=== PATIENT | female | born 1940 | race Caucasian/White ===

== ENCOUNTER 2022-02-01 11:27 | Emergency (ER) | payer MEDICARE, OTHER, SELFPAY ==
--- NOTE | ~2022-02-01 | CT_ITS ---
EXAMINATION: CT brain wo con INDICATION: Altered mental status COMPARISON: None TECHNIQUE: Standard unenhanced head CT. The dose-length product (DLP) was 681.00 mGy-cm. The mA was a djusted according to patient size. Iterative reconstruction technique was employed. FINDINGS: There is no acute intraparenchymal hemorrhage. No evidence of mass lesion. No evidence of a cute infarction. There is mild periventricular and subcortical hypodensity probably related to small vessel ischemic disease. There are some focal areas of subtle low-attenuation in the white matter of the right parietal lobe which may also reflect small vessel ischemic change. There is mild prominence of the sulci and ventricles related to cerebral atrophy. Intracranial calcified cerebral atheroscler osis is noted. There are no extra-axial collections. There is no mass effect or midline shift. Change s in the globes are likely from ocular lens surgery. The visualized sinuses and mastoid air cells are well aerated. IMPRESSION: 1. No acute intracranial abnormality. 2. Age related findings. Reviewed, dictated and finalized at location A.
--- NOTE | ~2022-02-01 | XR_ITS ---
EXAMINATION: XR chest 1V portable INDICATION: Altered mental status TECHNIQUE: Portable AP chest at 1218 hours COMPARISON: None available FINDINGS: The lungs are hyperinflated but free of acute opacities. No pleural effusion or pneumothora x. The cardiomediastinal silhouette is normal. Surgical clips are noted in the neck. IMPRESSION: 1. No acute cardiopulmonary abnormality. Reviewed, dictated and finalized at location A.
--- NOTE | ~2022-02-01 | CT_ITS ---
EXAMINATION: CT abdomen pelvis w con DATE: 02/01/2022 14:12 INDICATION: abd pain TECHNIQUE: Computed tomography (CT) of the abdomen and pelvis was performed without intravenous contr ast. Automated exposure control and iterative reconstruction technique were employed. The dose-length product was 363.95 mGy-cm. COMPARISON: None. FINDINGS: Lower thorax: Hiatal hernia coronary artery, aortic, and mitral calcifications Liver: Normal. Biliary/Gallbladder: Unremarkable. No bile duct dilation. Pancreas: No mass or duct dilation. Spleen: Normal. Adrenals:No mass. Kidneys: No mass, stone, or hydronephrosis. GI tract: No small or large bowel dilation. Normal appendix. The rectum is dilated to 8 cm, by formed stool. No wall thickening or surrounding inflammatory change. Mesentery/Peritoneum: No ascites, mass, or free air. Retroperitoneum: No mass. Atherosclerotic abdominal aortic and/or arterial calcifications. Small fusi form heavily calcified abdominal aortic aneurysm. Pelvis: Pelvic organs are partially obscured by metal artifact, grossly within normal limits. Soft Tissues: Soft tissues and body wall unremarkable. Bones: No acute osseous finding. Right hip arthroplasty. IMPRESSION: Fecal impaction. No other acute abdominopelvic process. Reviewed, dictated and finalized at location K.
[2022-02-01 11:31] VITALS: BP 129/50; PULSE 64; RESP 18; TEMP 36.7; O2SAT 100
--- NOTE | 2022-02-01 12:10 | ECG_ITS ---
Measurements Intervals [place] Rate: 69 P: 157 WV: 216 QRS: 62 QRSD: 86 T: -68 QT: 405 QTc: 435 Interpretive Statements SINUS RHYTHM WITH FIRST DEGREE AV BLOCK LEFT VENTRICULAR HYPERTROPHY AND ST-T CHANGE [VOLTAGE CRITERIA PLUS ST/T ABNORMALITY] NO PREVIOUS ECG AVAILABLE FOR COMPARISON Electronically Signed On 02-02-2022 7:07:30 CDT by Joaquín Mancilla M.D.
[2022-02-01] MEDS: SODIUM CHLORIDE 0.9% IV 1,000 ML 999 ML IV CONT (12:54)
[2022-02-01 13:02] LABS: Basophils Percent Auto 0.3 % (0.2-1.2); Eosinophils Percent Auto 0.2 % (0-4.4); Hematocrit 46.6 % (37.0-47.0); Hemoglobin 14.6 g/dL (12.0-15.0); Immature Granulocyte Absolute 0.02 K/mm3 (0.00-0.031); Immature Granulocyte Percent A 0.3 % (0-0.5); Lymphocytes Absolute Auto 0.42 K/mm3 (0.9-3.2); Lymphocytes Percent Auto 6.4 % (18.3-44.2); Mean Corpuscular HGB Conc 31.3 g/dl (32-36); Mean Corpuscular Hemoglobin 28.6 pg (26-34); Mean Corpuscular Volume 91.4 fl (80-100); Mean Platelet Volume 9.8 fl (7.4-10.4); Monocytes Absolute Auto 0.5 K/mm3 (0.1-0.6); Monocytes Percent Auto 8.2 % (2.6-8.5); Neutrophils Absolute Auto 5.6 K/mm3 (1.3-6.7); Neutrophils Percent Auto 84.6 % (45.5-73.1); Platelet Count Result 255 k/mm3 (150-375); Red Cell Distribution Width 14.1 % (11.5-14.5); White Blood Count 6.6 K/mm3 (4.5-10.0)
[2022-02-01 13:13] LABS: Alanine Aminotransferase 10 U/L (6-35); Albumin Level 3.6 g/dL (3.5-5.1); Alkaline Phosphatase 105 U/L (38-126); Anion Gap 4 mmol/L (8-16); Aspartate Amino Transferase 24 U/L (14-36); Bilirubin,Total 0.4 mg/dL (0.2-1.3); Blood Urea Nitrogen 23 mg/dL (7-17); Calcium 8.8 mg/dL (8.4-10.2); Carbon Dioxide 32 mmol/L (22-30); Chloride 103 mmol/L (98-107); Estimated CRCL calculation 36 ml/min; Estimated Glomerular Filt Rate 60; Glucose 103 mg/dL (65-110); Lipase 51 U/L (23-300); Potassium 3.9 mmol/L (3.4-5.0); Sodium 139 mmol/L (137-145)
[2022-02-01 13:14] LABS: Lactic Acid Reflex 1.1 mmol/L (0.7-2.0)
[2022-02-01 13:16] LABS: Partial Thromboplastin Time 27.2 SECONDS (22.3-36.8)
[2022-02-01 13:23] LABS: Appearance Urine Clear (Clear); Bilirubin Urine Negative (Negative); Blood Urine Negative (Negative); Color Urine Yellow (Yellow); Glucose Urine UA Negative (Negative); Ketones Urine Trace mg/dL (Negative); Leukocyte Esterase Ur Negative LEU/UL (Negative); Nitrate Urine Negative (Negative); Protein Urine Negative (Negative); pH Urine 5.5 (5.0-9.0)
--- NOTE | 2022-02-01 13:26 | ED.GENADULT ---
HPI - General Adult General Chief complaint: Nausea/Vomiting/Diarrhea Stated complaint: N/V Time Seen by Provider: 02/01/22 12:02 Source: RN notes reviewed History of Present Illness HPI narrative: Patient presents emergency department from [facility] via EMS for nausea vomiting. Per the staff the patient had an episode of nausea vomiting x1 at the nursing was sent for further evaluation. Per the staff the patient's questionably had some altered mental status for the past 1 week however the patient is ANO x1 at baseline and currently is ANO x1 at this time. The patient currently is resting in bed she has no complaints at this time she denies any chest pain, shortness of breath abdominal pain or any other symptom Related Data Allergies Allergy/AdvReac Type Severity Reaction Status Date / Time Penicillins Allergy Unknown Verified 02/01/22 11:42 Sulfa (Sulfonamide Allergy Unknown Verified 02/01/22 11:42 Antibiotics) Review of Systems Review of Systems: Gen.: Denies fevers or chills ENT: Denies congestion Respiratory: Denies shortness of breath CV: Denies chest pain GI: Denies abdominal pain or diarrhea reports nausea vomiting Musculoskeletal: Denies back pain or muscle pain Neuro: Denies headache Skin: Denies rash Except as documented, all other systems reviewed and negative [facility] Past Medical History Medical History (Updated 02/01/22 @ 16:48 by Andrew Peterson DO) Dementia Social History Social History (Updated 02/01/22 @ 16:45 by Andrew Peterson DO) Smoking status: Never smoker Exam Narrative: APPEARANCE: No acute distress, nontoxic, resting in bed EYES: PERRL HEENT: Normocephalic, atraumatic, OMM RESPIRATORY: No respiratory distress Clear to auscultation bilaterally with no rhonchi wheezing or rales. CARDIOVASCULAR: Regular rate and rhythm without murmurs rubs or gallops. ABDOMINAL: Soft, nontender, nondistended, no rebound or guarding MUSCULOSKELETAl: Moves all extremities. No clubbing, cyanosis or edema. NEURO: Awake and alert x 1. Following commands, speech normal, no focal deficits, muscle strength 5 out of 5 bilateral upper and lower extremities SKIN:: Warm, dry. No rashes lesions or abrasions PSYCHIATRIC: Normal affect/mood, Course Course Emergency Course: Patient with fecal impaction noted on CT scan a rectal exam was performed with small amount of palpated stool enema was given with large bowel movement Discussed with Dr. Cailin Thompson presentation work-up agrees with plan for discharge to follow-up as an outpatient states she is already on stool softeners are at the [facility] Discussed with patient results of workup and diagnosis. Discussed need for follow-up with primary care, proper use of medication, and reasons to return to the emergency department. Patient understands and agrees to current treatment plan Vital Signs Vital signs: Vital Signs Temperature 98.1 F 02/01/22 11:31 Pulse Rate 64 02/01/22 11:31 Respiratory Rate 18 02/01/22 11:31 Blood Pressure 129/50 L 02/01/22 11:31 Pulse Oximetry 100 02/01/22 11:31 Oxygen Delivery Room Air 02/01/22 11:31 Temperature 98.1 F 02/01/22 11:31 Pulse Rate 70 02/01/22 14:16 Respiratory Rate 20 02/01/22 14:16 Blood Pressure 167/88 H 02/01/22 14:16 Pulse Oximetry 98 02/01/22 14:16 Oxygen Delivery Room Air 02/01/22 11:31 Medical Decision Making Vital Signs Vital Signs: Vital Signs Temperature 98.1 F 02/01/22 11:31 Pulse Rate 64 02/01/22 11:31 Respiratory Rate 18 02/01/22 11:31 Blood Pressure 129/50 L 02/01/22 11:31 Pulse Oximetry 100 02/01/22 11:31 Oxygen Delivery Room Air 02/01/22 11:31 Temperature 98.1 F 02/01/22 11:31 Pulse Rate 70 02/01/22 14:16 Respiratory Rate 20 02/01/22 14:16 Blood Pressure 167/88 H 02/01/22 14:16 Pulse Oximetry 98 02/01/22 14:16 Oxygen Delivery Room Air 02/01/22 11:31 Lab Data Result diagrams: 02/01/22 12:51
[2022-02-01 13:29] LABS: Mucus Urine Rare /lpf; RBC Urine 0-2 /hpf (0-2); Squamous Epithelial Cell Urine Rare /hpf (Few); WBC Urine 0-3 /hpf
[2022-02-01 13:42] LABS: SARS-CoV-2 RNA PCR Negative
[2022-02-01 13:55] LABS: Add Urine Microscopic? YES
[2022-02-01 14:16] VITALS: BP 167/88; PULSE 70; RESP 20; O2SAT 98
--- NOTE | 2022-02-01 15:53 | PC.NURSE ---
Talked to the nurse from the retirement ([facility]), update on pt condition given.
[2022-02-01 19:18] VITALS: BP 126/85; PULSE 87; RESP 16; O2SAT 99
[2022-02-01 23:28] VITALS: BP 172/67; PULSE 72; RESP 20; TEMP 36.7; O2SAT 98
== END 2022-02-01 23:30 ==
PROVIDERS: Emergency Provider Emergency Medicine
DX: R11.2 Nausea with vomiting, unspecified (principal); K56.41 Fecal impaction; Z20.822 Contact with and (suspected) exposure to COVID-19; F03.90 Unspecified dementia, unspecified severity, without behavioral disturbance, psychotic disturbance, mood disturbance, and anxiety; I44.0 Atrioventricular block, first degree; I51.7 Cardiomegaly
CPT/HCPCS: 36415; 70450; 71045; 74177; 80053; 81001; 83605; 83690; 85025; 85610; 85730; 93005; 96360; 99284; C9803; J7030; Q9967; U0003; U0005

== ENCOUNTER 2022-03-10 13:45 | Inpatient (IN) | payer MEDICARE, MEDICAID, SELFPAY ==
[2022-03-10] VITALS (11 sets, daily range): BP systolic 121–177; BP diastolic 46–66; PULSE 69–94; RESP 15–20; TEMP 36.4–36.9; O2SAT 90–100
--- NOTE | ~2022-03-10 | CT_ITS ---
EXAMINATION: CT abdomen pelvis w con DATE: 03/10/2022 15:57 INDICATION: Epigastric abdominal pain, nausea, vomiting and diarrhea TECHNIQUE: Computed tomography (CT) of the abdomen and pelvis was performed with 100 CC Omnipaque 350 intravenous contrast. Automated exposure control and iterative reconstruction technique were employe d. Exam dose: 378.53 mGy-cm total exam DLP. COMPARISON: 02/01/2022 CT abdomen pelvis FINDINGS: The lung bases are clear of consolidation. Cardiomegaly. No pericardial or pleural effusion . Status post cholecystectomy. No hepatic space-occupying mass lesion. Normal splenic size. No pancreat ic mass lesion, calcification or ductal dilatation. No bile duct dilatation. Normal morphology of the adrenal glands. No renal mass lesion or urinary tract calculus or hydroureteronephrosis. The urinary bladder is relat ively evacuated there is severe abdominal aortic calcification and prominent calcification at the danyelle gin of the celiac artery and at the origin and remainder of the superior mesenteric artery, prominent calcifications at the origins of the renal arteries. The iliac and femoral arteries are prominently calcified. There is ectasia but no aneurysm of the abdominal aorta. No intraperitoneal or retroperito neptali or pelvic mass lesion or adenopathy. Small sliding hiatal hernia. Probably distended fluid-filled small bowel with air-fluid levels. The cecum is likewise distended, w ith a prominent fluid level. There appears to be a twist of the cecal mesentery resulting in partial cecal obstruction, with evacuation of the colon distal to this point. There is mild to moderate amount of free fluid in the dependent pelvis. There are numerous diverticula of the sigmoid colon; no CT evidence of diverticulitis. No intraperitoneal free air is evident. Status post right hip arthroplasty. Moderately severe degenerative disc disease at L5-S1. IMPRESSION: Obstruction of the ascending colon, likely due to twisting of retained cecal mesentery Mild to moderate free fluid in the dependent pelvis. Diverticulosis of the sigmoid colon; no CT evidence of diverticulitis Small sliding hiatal hernia Dr. Canales telephoned the report on 03/10/2022 at 1618 hours to emergency room physician . I danika mmend emergency surgical consultation. Reviewed, dictated and finalized at [facility]. Reviewed, dictated and finalized at [facility]. IMPRESSION: Obstruction of the ascending colon, likely due to twisting of [place] ined cecal mesentery Mild to moderate free fluid in the dependent pelvis. Diverticulosis of the sigmoid colon; no CT evidence of diverticulitis Small sliding hiatal hernia Dr. Canales telephoned the report on 03/10/2022 at 1618 hours to emergency room phys icielva Marcos. I recommend emergency surgical consultation.
--- NOTE | 2022-03-10 14:37 | ED.NAVMDI ---
HPI - Nausea/Vomiting/Diarrhea General Chief complaint: Nausea/Vomiting/Diarrhea Stated complaint: VOMIT AND DIARRHEA Time Seen by Provider: 03/10/22 14:33 History of Present Illness HPI Narrative: n/v and epigastric pain since yesterday zofran by ems helped no diarrhea or urine chagnes no bad food or sick contacts but lives in [place] setting Related Data Home Medications Medication Instructions Recorded Confirmed aripiprazole 5 mg tablet mg 03/10/22 atorvastatin 40 mg tablet mg 03/10/22 carvedilol 3.125 mg tablet mg 03/10/22 clopidogrel 75 mg tablet mg 03/10/22 colestipol 1 gram tablet g PO 03/10/22 divalproex 250 mg tablet,delayed mg PO 03/10/22 release donepezil 10 mg tablet mg 03/10/22 nystatin 100,000 unit/gram topical topical 03/10/22 ointment potassium chloride 20 mEq meq PO 03/10/22 tablet,extended release(part/cryst) prednisone 10 mg tablet mg 03/10/22 sertraline 50 mg tablet mg 03/10/22 03/10/22 Allergies Allergy/AdvReac Type Severity Reaction Status Date / Time Penicillins Allergy Unknown Verified 03/10/22 15:09 Sulfa (Sulfonamide Allergy Unknown Verified 03/10/22 15:09 Antibiotics) Review of Systems Constitutional: Comments: CONSTITUTIONAL: Denies fever, chills, or sweats. EYES: Denies visual changes, redness, or discharge. ENT: Denies rhinorrhea, congestion, sore throat, or otalgia. CARDIOVASCULAR: Denies chest pain, palpitations, or edema. RESPIRATORY: Denies cough or dyspnea. GASTROINTESTINAL: has abdominal pain, nausea, vomiting, no diarrhea. GENITOURINARY: Denies dysuria or hematuria. SKIN: Denies rash or itching. MUSCULOSKELETAL: Denies back pain, joint pain, or myalgia. NEUROLOGIC: Denies headache, numbness, or weakness. PSYCHIATRIC: Denies anxiety or depression. [facility] Past Medical History Medical History (Updated 03/10/22 @ 17:49 by Jhon Clark MD) CHF (congestive heart failure) Coronary artery disease Dementia Surgical History Surgical History History of hip replacement History of hysterectomy Social History Social History Smoking status: Former smoker Alcohol intake: never Substance use: never Spiritual care concerns: No Exam Const: Other: APPEARANCE: Well appearing, no pain in distress, well-nourished. Head normocephalic atraumtaic. EYES: PERRLA/EOMI, conjunctivae very clear. NOSE: Normal no drainage EARS:TMS clear Magda French, with good light reflex. THROAT: Pharynx clear, no exudate. NECK: Supple. No adenopathy, no masses. RESPIRATORY: Airway patent, repsirations nonlabored. Clear to auscultation bilaterally, no rales, rhonchi, wheezing. CARDIOVASCULAR: Regular rate and rhythm without murmurs rubs or gallops. ABDOMINAL: Soft, tend epi, decreased bs, nondistended, no hepatosplenomegally MUSCULOSKELETAl: Moves all extremities. Strenght/ROM intact, No edema, No calf tenderness. NEURO: Alert. Cranial nerves II through XII intact. Good gait. Good coordination SKIN:: Warm, dry. Normal Color PSYCHIATRIC: Normal affect/mood, normal interaction with parents. Course Reevaluation(s) Reevaluation #1: surgeon Dr Cardona paged at [phone] Vital Signs Vital signs: Vital Signs Temperature 36.8 C 03/10/22 13:46 Pulse Rate 85 03/10/22 13:46 Respiratory Rate 18 03/10/22 13:46 Blood Pressure 155/66 H 03/10/22 13:46 Pulse Oximetry 98 03/10/22 13:46 Oxygen Delivery Room Air 03/10/22 13:46 Temperature 36.4 C 03/10/22 20:22 Pulse Rate 69 03/10/22 20:22 Respiratory Rate 20 03/10/22 20:22 Blood Pressure 121/54 L 03/10/22 20:22 Pulse Oximetry 95 03/10/22 20:22 Oxygen Delivery Room Air 03/10/22 19:35 Oxygen Flow Rate 6 03/10/22 19:05 MDM - Nausea/Vomiting/Diarrhea Lab Data Result diagrams: 03/10/22 15:16 03/10/22 15:16 Labs: Lab Results 03/10/22 03/10/22 03/10/22 Ran
[2022-03-10] MEDS: FAMOTIDINE 20 MG/2 ML VIAL IV PUSH (14:54)
[2022-03-10] MEDS: SODIUM CHLORIDE 0.9% IV 1,000 ML 999 ML IV CONT (14:54)
[2022-03-10 15:30] LABS: Basophils Percent Auto 0.2 % (0.2-1.2); Hematocrit 47.7 % (37.0-47.0); Hemoglobin 14.7 g/dL (12.0-15.0); Immature Granulocyte Absolute 0.06 K/mm3 (0.00-0.031); Immature Granulocyte Percent A 0.5 % (0-0.5); Lymphocytes Absolute Auto 0.43 K/mm3 (0.9-3.2); Lymphocytes Percent Auto 3.8 % (18.3-44.2); Mean Corpuscular HGB Conc 30.8 g/dl (32-36); Mean Corpuscular Hemoglobin 28.3 pg (26-34); Mean Corpuscular Volume 91.9 fl (80-100); Mean Platelet Volume 9.8 fl (7.4-10.4); Monocytes Absolute Auto 0.6 K/mm3 (0.1-0.6); Monocytes Percent Auto 4.9 % (2.6-8.5); Neutrophils Absolute Auto 10.2 K/mm3 (1.3-6.7); Neutrophils Percent Auto 90.6 % (45.5-73.1); Platelet Count Result 314 k/mm3 (150-375); Red Blood Count 5.19 M/mm3 (4.2-5.4); Red Cell Distribution Width 13.7 % (11.5-14.5); White Blood Count 11.3 K/mm3 (4.5-10.0)
[2022-03-10 15:37] LABS: Alanine Aminotransferase 12 U/L (6-35); Albumin Level 3.5 g/dL (3.5-5.1); Alkaline Phosphatase 82 U/L (38-126); Anion Gap 9 mmol/L (8-16); Aspartate Amino Transferase 24 U/L (14-36); Bilirubin,Total 0.6 mg/dL (0.2-1.3); Blood Urea Nitrogen 31 mg/dL (7-17); Calcium 8.9 mg/dL (8.4-10.2); Carbon Dioxide 30 mmol/L (22-30); Chloride 100 mmol/L (98-107); Estimated CRCL calculation 30 ml/min; Estimated Glomerular Filt Rate 53; Glucose 136 mg/dL (65-110); Lipase 161 U/L (23-300); Potassium 4.6 mmol/L (3.4-5.0); Sodium 139 mmol/L (137-145)
[2022-03-10 16:21] LABS: Appearance Urine Clear (Clear); Bilirubin Urine Negative (Negative); Color Urine Yellow (Yellow); Glucose Urine UA Negative (Negative); Ketones Urine Trace mg/dL (Negative); Leukocyte Esterase Ur Negative LEU/UL (Negative); Nitrate Urine Positive (Negative); Protein Urine 1+ mg/dL (Negative); Urobilinogen Urine 0.2 mg/dL (<2.0); pH Urine 5.5 (5.0-9.0)
[2022-03-10 16:23] LABS: Add Urine Microscopic? YES; Blood Urine Trace-Intact (Negative)
[2022-03-10 16:29] LABS: Bacteria Urine 3+ /hpf; Mucus Urine Moderate /lpf; Squamous Epithelial Cell Urine Rare /hpf (Few)
--- NOTE | 2022-03-10 17:00 | PM.IMHP ---
H&P: HPI History of Present Illness Date/Time: 03/10/22 17:00 Chief Complaint: abdominal pain Narrative: this is an 82-year-old demented woman who was brought in to the emergency department by EMS from her nursing home facility for evaluation for abdominal pain with nausea and vomiting. She has been having vomiting over the past 2 days. She does have problems with constipation frequently. Patient has fairly significant dementia and is only oriented to person. History is unable to be obtained from patient. Nursing facility record was reviewed and I also discussed with patient's daughter who is her emergency contact. Review of Systems Review of Systems: ROS unobtainable: Yes unobtainable due to mental status Gastrointestinal: Gastrointestinal: Reports as per [facility] Past Medical History Medical History Coronary artery disease Dementia Surgical History Surgical History History of hip replacement History of hysterectomy Social History Social History Smoking status: Never smoker Comments unable to obtain family and social history due to patient's mental status Meds Home Medications and Allergies Home Medications Medication Instructions Recorded Confirmed Type aripiprazole 5 mg tablet mg 03/10/22 History atorvastatin 40 mg tablet mg 03/10/22 History carvedilol 3.125 mg tablet mg 03/10/22 History clopidogrel 75 mg tablet mg 03/10/22 History colestipol 1 gram tablet g PO 03/10/22 History divalproex 250 mg tablet,delayed mg PO 03/10/22 History release donepezil 10 mg tablet mg 03/10/22 History nystatin 100,000 unit/gram topical topical 03/10/22 History ointment potassium chloride 20 mEq meq PO 03/10/22 History tablet,extended release(part/cryst) prednisone 10 mg tablet mg 03/10/22 History sertraline 50 mg tablet mg 03/10/22 03/10/22 History Allergies Allergy/AdvReac Type Severity Reaction Status Date / Time Penicillins Allergy Unknown Verified 03/10/22 15:09 Sulfa (Sulfonamide Allergy Unknown Verified 03/10/22 15:09 Antibiotics) Vital Signs Vital Signs - 24 hr 03/10/22 13:46 Temperature 36.8 C Pulse Rate 85 Respiratory Rate 18 Blood Pressure 155/66 H Pulse Oximetry 98 Oxygen Delivery Room Air Exam Const: General: cooperative and no acute distress Nutritional Appearance: average body habitus Orientation/consciousness: oriented to person and confusion HENMT: Head: normal to inspection Ears: hearing grossly normal bilaterally Mouth: Yes Normal oral and palatal mucosa present Eyes: General: appearance normal, both eyes and all related structures Sclera: sclerae normal EOM: EOMs intact bilaterally Neck: Neck: normal visual inspection and full ROM Resp: Effort & Inspection: normal respiratory effort and able to speak in complete sentences Cardio: Jugular venous distension: no JVD Rate: regular rate Rhythm: regular rhythm Heart sounds: S1 normal heart sound present and S2 normal heart sound present Back/Spine/Pelvis: Cervical Spine: normal cervical lordosis and cervical ROM normal Skin: General skin exam: normal color and no rashes or lesions noted Neuro: General: oriented to person, moves all extremities, no focal motor deficits and CN's II-XI intact bilaterally Speech: normal speech Extrem: General: normal to inspection, full ROM and no clubbing, cyanosis or edema Psych: Appearance: grossly normal Mental Status: mental status grossly normal Speech and movement: Normal speech and movement present Affect: normal affect Attitude: cooperative Thought process: Normal thought process present H&P: Results Labs Labs: Short CBC 03/10/22 Range/Units 15:16 WBC 11.3 H (4.5-10.0) K/mm3 Hgb 14.7 (12.0-15.0) g/dL Hct 47.7 H (37.0-47.0) % Plt Count 314 (150-
--- NOTE | 2022-03-10 17:13 | WPDHPUPDATE1 ---
History and Physical Update Update Date/Time: 03/10/22 17:13 History and Physical has been reviewed, including an updated exam of the patient. There are NO changes in the patient's condition. Risks, benefits, and alternatives have been discussed and questions answered. Patient agrees to proceed with procedure.
--- NOTE | 2022-03-10 17:47 | WPDANESEPPF ---
Anes - Initial Pre Proc Eval Procedure: Operation Date: 03/10/22 17:30 Proposed Procedures p Exploratory Laparotomy, Right Hemicolectomy - Billy Cardona DO Date/Time: 03/10/22 17:47 Surgeon: Billy Cardona DO Pre Op Diagnosis: VOMIT AND DIARRHEA Patient Data Age: 82 Gender: F Height: 1.6 m Weight: 49 kg Last Vital Signs Temp 36.8 C 03/10/22 13:46 Pulse 71 03/10/22 17:32 Resp 18 03/10/22 17:32 BP 177/57 H 03/10/22 17:32 Pulse Ox 95 03/10/22 17:32 O2 Del Method Room Air 03/10/22 13:46 Allergies Allergy/AdvReac Type Severity Reaction Status Date / Time Penicillins Allergy Unknown Verified 03/10/22 15:09 Sulfa (Sulfonamide Allergy Unknown Verified 03/10/22 15:09 Antibiotics) Home Medications Medication Instructions Recorded Confirmed Type aripiprazole 5 mg tablet mg 03/10/22 History atorvastatin 40 mg tablet mg 03/10/22 History carvedilol 3.125 mg tablet mg 03/10/22 History clopidogrel 75 mg tablet mg 03/10/22 History colestipol 1 gram tablet g PO 03/10/22 History divalproex 250 mg tablet,delayed mg PO 03/10/22 History release donepezil 10 mg tablet mg 03/10/22 History nystatin 100,000 unit/gram topical topical 03/10/22 History ointment potassium chloride 20 mEq meq PO 03/10/22 History tablet,extended release(part/cryst) prednisone 10 mg tablet mg 03/10/22 History sertraline 50 mg tablet mg 03/10/22 03/10/22 History Laboratory Tests 03/10/22 03/10/22 03/10/22 15:16 15:16 16:13 WBC 11.3 K/mm3 H K/mm3 (4.5-10.0) RBC 5.19 M/mm3 M/mm3 (4.2-5.4) Hgb 14.7 g/dL g/dL (12.0-15.0) Hct 47.7 % H % (37.0-47.0) MCV 91.9 fl fl (80-100) MCH 28.3 pg pg (26-34) MCHC 30.8 g/dl L g/dl (32-36) RDW 13.7 % % (11.5-14.5) Plt Count 314 k/mm3 k/mm3 (150-375) MPV 9.8 fl fl (7.4-10.4) Immature Gran % (Auto) 0.5 % % (0-0.5) Neut % (Auto) 90.6 % H % (45.5-73.1) Lymph % (Auto) 3.8 % L % (18.3-44.2) Hodgeman % (Auto) 4.9 % % (2.6-8.5) Eos % (Auto) 0.0 % % (0-4.4) Baso % (Auto) 0.2 % % (0.2-1.2) Lymph # (Auto) 0.43 K/mm3 L K/mm3 (0.9-3.2) Hodgeman # (Auto) 0.6 K/mm3 K/mm3 (0.1-0.6) Eos # (Auto) 0.0 K/mm3 K/mm3 (0-0.3) Baso # (Auto) 0.0 K/mm3 K/mm3 (0.0-0.1) Abs Immat Gran (auto) 0.06 K/mm3 H K/mm3 (0.00-0.031) Absolute Neuts (auto) 10.2 K/mm3 H K/mm3 (1.3-6.7) Absolute Nucleated RBC 0.0 K/mm3 K/mm3 (0.0-0.012) Nucleated RBC % 0.0 % % (0.0-0.2) Sodium 139 mmol/L mmol/L (137-145) Potassium 4.6 mmol/L mmol/L (3.4-5.0) Chloride 100 mmol/L mmol/L (98-107) Carbon Dioxide 30 mmol/L mmol/L (22-30) Anion Gap 9 mmol/L mmol/L (8-16) BUN 31 mg/dL H mg/dL (7-17) Creatinine 1.00 mg/dL mg/dL (0.7-1.0) Estim Creat Clear Calc 30 ml/min ml/min Estimated GFR 53 L (59 - ) Glucose 136 mg/dL H mg/dL (65-110) Calcium 8.9 mg/dL mg/dL (8.4-10.2) Total Bilirubin 0.6 mg/dL mg/dL (0.2-1.3) AST 24 U/L U/L (14-36) ALT 12 U/L U/L (6-35) Alkaline Phosphatase 82 U/L U/L (38-126) Total Protein 8.0 g/dL g/dL (6.3-8.2) Albumin 3.5 g/dL g/dL (3.5-5.1) Lipase 161 U/L U/L (23-300) Urine Color Yellow (Yellow) Urine Appearance Clear (Clear) Urine pH 5.5 (5.0-9.0) Ur Specific Pearl 1.020 (1.001-1.035) Urine Protein 1+ mg/dL H mg/dL (Negative) Urine Glucose (UA) Negative mg/dL mg/dL (Negative) Urine Ketones Trace mg/dL mg/dL (Negative) Ur Blood (Man) Trace-intact (Negative) Urine Nitrate Positive H (Negative)
[2022-03-10] MEDS: ceFAZolin 2 GM/D5W 50 ML 2 GM/50 ML BAG IVPB (18:01)
[2022-03-10] MEDS: metroNIDAZOLE 500 MG/ISO 100ML 500 MG/100 ML BAG 100 MG IVPB (18:06)
--- NOTE | 2022-03-10 18:44 | W.PM.PROC2 ---
Procedure Note - Detailed Date of Procedure 03/10/22 Pre-op Diagnosis Cecal volvulus Post-op Diagnosis Other (Closed loop obstruction secondary to adhesions) Procedure Performed Exploratory laparotomy with lysis of adhesions Surgeon Billy Cardona, DO Anesthesia General Indications This is an 82-year-old woman who presented to the emergency department from her residential with nausea and vomiting for the past 2 days. The patient is demented and oriented x1 at baseline. History is obtained from the chart and the daughter. A CT in the emergency department showed evidence of a bowel obstruction just distal to the cecum and twisting of the cecal mesentery concerning for a cecal volvulus. Decision was made to proceed with emergent exploratory laparotomy with possible right hemicolectomy. Findings Exploratory laparotomy was performed. Upon entering the abdomen, the cecum was identified and appeared to be very dilated. There appeared to be an adhesive band around the cecum and terminal ileum that was causing the obstruction. The adhesive band appeared to be part of the fallopian tube on the right. The adhesive band was excised and sent for pathology. This freed up the obstruction and I was then able to run the entire bowel from ligament of Treitz to the ileocecal valve. The ascending colon was also evaluated along with the remainder of the transverse colon descending colon and sigmoid colon. No other signs of obstruction were noted. Cecum was somewhat redundant and was lying down in the pelvis, but there did not appear to be any evidence of cecal volvulus that would require resection. The bowel all appeared healthy and viable after releasing the closed loop obstruction. Description of Procedure Procedure as well as risks, benefits, and alternatives were discussed with the patient and her daughter. Written consent was obtained and placed in chart prior to procedure. Patient was brought back to surgical suite. She was placed supine on operating table. Time-out was done to confirm patient and procedure. She was then intubated by the anesthesia department. Her abdomen was prepped and draped in sterile fashion using chlorhexidine prep. A 15 cm vertical midline incision was then made using a 10 blade scalpel. Electrocautery was used for hemostasis and for dissection through Yossi's fascia. The linea alba was then incised using electrocautery. Once through the peritoneum, the fascial incision was then extended throughout the length of the skin incision using electrocautery. Vishnu wound protector was then inserted and the abdominal cavity was inspected. The adhesive band was identified in the right lower quadrant and this appeared be causing a closed loop obstruction on cecum and terminal ileum. The band was carefully inspected and traced back to its origin and this appeared to be the right fallopian tube. The adhesive band was excised and sent to the lab for pathology. This freed up the obstruction and I was then able to carefully inspect the cecum and terminal ileum. The bowel appeared healthy and viable and there appeared to be no other evidence of obstruction. The small bowel was then run from the ligament of Treitz to the ileocecal valve and all the small bowel appeared healthy and viable. The colon was then evaluated from the cecum to the sigmoid colon and abnormalities noted. The pelvis was carefully inspected and the right ovary appeared normal in size for her age. No other abnormalities were noted within the pelvis. The abdomen was irrigated with a L of sterile saline. NG tube placement was confirmed within the body of the stomach. The fascia of the midline incision was then approximated using 0 PDS running absorbable suture starting from each end and meeting in the middle. The skin of the incision was then approximated using skin braulio. Telfa 4 x 4 gauze and Medipore tape were then applied. The patient was then awakened from anesthesia,
[2022-03-10] MEDS: LACTATED RINGERS 1,000 ML 30 ML IV CONT (19:05)
[2022-03-10] MEDS: LACTATED RINGERS 1,000 ML 100 ML IV CONT (19:57)
--- NOTE | 2022-03-10 21:24 | PM.IMCN ---
Assessment and Plan Assessment and plan (1) S/P exploratory laparotomy: Code(s): Z98.890 - Other specified postprocedural states Status: Acute Assessment and Plan: - care per surgical team - she may have ice chips but otherwise is NPO. - Hold p.o. medication until patient is eating and has bowel sounds - expiratory laparotomy with lysis of adhesions status post cecal volvulus - continue with analgesics (2) Major depression: Code(s): F32.9 - Major depressive disorder, single episode, unspecified Status: Acute Assessment and Plan: holding oral medication until she has bowel sounds. may resume p.o. medications when patient is on a regular diet (3) Hypertension: Code(s): I10 - Essential (primary) hypertension Status: Acute Assessment and Plan: p.r.n. hydralazine. resume p.o. medication when on a regular diet and having bowel sounds. (4) Hyperlipidemia: Code(s): E78.5 - Hyperlipidemia, unspecified Status: Acute Assessment and Plan: Holding home medication at this time. (5) UTI (urinary tract infection): Code(s): N39.0 - Urinary tract infection, site not specified Status: Acute Assessment and Plan: - Rocephin - urine cultures pending (6) Dementia: Code(s): F03.90 - Unspecified dementia without behavioral disturbance Status: Acute Assessment and Plan: - holding home medication at this time. (7) Fungal infection: Code(s): B49 - Unspecified mycosis Status: Acute Assessment and Plan: continue with antifungal cream under her breast and growing. [facility] Data of Consult Consult date: 03/10/22 Requesting Physician: Billy Cardona DO Primary Care Provider: Cailin Thompson MD Consult Narrative Narrative: Betty Gutierrez is a 82 year old female Who is from [facility]. she came to the emergency room with nausea and vomiting with epigastric pain that started since yesterday. She had no diarrhea no recent sick contacts. Her white count was found to be 11.3. Patient was found to have 3+ urine bacteria and moderate mucus with positive nitrates. CT of the abdomen was read as the following?Obstruction of the ascending colon, likely due to twisting of retained cecal mesentery Mild to moderate free fluid in the dependent pelvis. Diverticulosis of the sigmoid colon; no CT evidence of diverticulitis Small sliding hiatal hernia surgery was called and she was taken to the operating room she had exploratory laparotomy lysis of adhesions. No immediate complications were noted. The hospitalist was asked to consult on the patient. She was admitted to inpatient status per surgery on the date of service of 03/10/2022. Review of Systems Review of Systems: Patient is complaining of postop pain and sore throat All systems reviewed & are unremarkable except as noted in HPI and below Constitutional: Constitutional: Reports as per HPI and Reports no additional constitutional complaints Eyes: Eyes: Reports as per HPI and Reports no additional eye complaints ENT: Reports system reviewed and no additional complaints, except as documented and Reports Normal hearing present Cardiovascular: Cardiovascular: Reports no additional cardiovascular complaints Respiratory: Respiratory: Reports no additional respiratory complaints and Reports no additional respiratory complaints Gastrointestinal: Gastrointestinal: Reports as per HPI and Reports no additional gastrointestinal complaints Musculoskeletal: Musculoskeletal: Reports no additional musculoskeletal complaints Integumentary/Breasts: Skin/Breast: Reports system reviewed and no additional complaints, except as docu and Reports as per HPI Neurologic: Reports system reviewed and no additional complaints, except as documented, Reports as per HPI and Reports Normal hearing present Psychiatric: Psychiatric: Reports no a
[2022-03-10] MEDS: PHENOL/SOD PHENO SPRAY CHERRY (*BKC) 1 SPRAY MUCOUS MEM (21:36)
[2022-03-11] VITALS (11 sets, daily range): BP systolic 104–146; BP diastolic 54–62; PULSE 0–77; RESP 16–20; TEMP 36.4–36.8; O2SAT 90–96
[2022-03-11 05:46] LABS: Hematocrit 40.9 % (37.0-47.0); Hemoglobin 12.5 g/dL (12.0-15.0); Mean Corpuscular HGB Conc 30.6 g/dl (32-36); Mean Corpuscular Hemoglobin 28.3 pg (26-34); Mean Corpuscular Volume 92.7 fl (80-100); Mean Platelet Volume 9.6 fl (7.4-10.4); Platelet Count Result 239 k/mm3 (150-375); Red Blood Count 4.41 M/mm3 (4.2-5.4); Red Cell Distribution Width 13.8 % (11.5-14.5); White Blood Count 10.5 K/mm3 (4.5-10.0)
[2022-03-11 06:01] LABS: Anion Gap 5 mmol/L (8-16); Blood Urea Nitrogen 26 mg/dL (7-17); Calcium 7.8 mg/dL (8.4-10.2); Carbon Dioxide 31 mmol/L (22-30); Chloride 103 mmol/L (98-107); Estimated CRCL calculation 30 ml/min; Estimated Glomerular Filt Rate 53; Glucose 108 mg/dL (65-110); Potassium 4.2 mmol/L (3.4-5.0); Sodium 139 mmol/L (137-145)
[2022-03-11] MEDS: LACTATED RINGERS 1,000 ML 100 ML IV CONT (06:20)
[2022-03-11] MEDS: ENOXAPARIN 40 MG/0.4 ML SYRINGE SUB-Q (08:19)
[2022-03-11] MEDS: NYSTATIN OINTMENT 15 GM TUBE 1 APPLIC TOPICAL ×2 (08:20→20:56)
[2022-03-11] MEDS: TRIAMCINOLONE ACET 0.1% CREAM 15 GM TUBE 1 APPLIC TOPICAL ×2 (08:20→20:56)
--- NOTE | 2022-03-11 12:15 | PM.IMPN ---
Progress Note: A&P Assessment and Plan (1) S/P exploratory laparotomy: Code(s): Z98.890 - Other specified postprocedural states Status: Acute Assessment and Plan: - care per surgical team - she may have ice chips but otherwise is NPO. - Hold p.o. medication until patient is eating and has bowel sounds - expiratory laparotomy with lysis of adhesions status post cecal volvulus - continue with analgesics - patient remains asymptomatic - Continue to trend labs (2) Major depression: Code(s): F32.9 - Major depressive disorder, single episode, unspecified Status: Acute Assessment and Plan: holding oral medication until she has bowel sounds. may resume p.o. medications when appropriate (3) Hypertension: Code(s): I10 - Essential (primary) hypertension Status: Acute Assessment and Plan: Current BP 129/55 p.r.n. hydralazine. on carvedilol 3.125mg PO Daily, resume p.o. medication when on a regular diet and having bowel sounds. (4) Hyperlipidemia: Code(s): E78.5 - Hyperlipidemia, unspecified Status: Acute Assessment and Plan: Holding home medication at this time. (5) UTI (urinary tract infection): Code(s): N39.0 - Urinary tract infection, site not specified Status: Acute Assessment and Plan: - Rocephin - urine cultures pending - await sensitivities - Adjust accordingly (6) Dementia: Code(s): F03.90 - Unspecified dementia without behavioral disturbance Status: Acute Assessment and Plan: - holding home medication at this time. (7) Fungal infection: Code(s): B49 - Unspecified mycosis Status: Acute Assessment and Plan: continue with antifungal cream under her breast and growing. Time Spent With Patient Time with patient: Greater than 35 minutes Subjective Date/time seen: 03/11/22 12:15 Interval history: 03/11/22 1215 patient stated that she feels okay. She did state that she did know she was in pain she has been running around today she states that she is urinating okay. Christie urine. No nausea vomiting diarrhea or constipation. She did states she has pain however she I asked her if she could read she says she was not good at that. She also said she is weak. Complete review of systems is unable to be obtained due to patient's mental status. Consult date: 03/10/22 Betty Gutierrez is a 82 year old female Who is from [facility]? [facility].? she came to the emergency room with nausea and vomiting with epigastric pain that started since yesterday.? She had no diarrhea no recent sick contacts.? Her white count was? found to be 11.3.? Patient was found to have 3+ urine bacteria and moderate mucus with positive nitrates.? CT of the abdomen was read as the following?Obstruction of the ascending colon, likely due to twisting of retained cecal mesentery Mild to moderate free fluid in the dependent pelvis. Diverticulosis of the sigmoid colon; no CT evidence of diverticulitis Small sliding hiatal hernia ?surgery was called and she was taken to the? operating room she had exploratory laparotomy lysis of adhesions.? No immediate complications were noted. ? The hospitalist was asked to consult on the patient.? She was admitted to inpatient status per surgery on the date of service of 03/10/2022. Review of Systems Review of Systems: All systems reviewed & are unremarkable except as noted in HPI and below Exam Const: General: cooperative, healthy appearing, no acute distress, well developed, alert and awake Nutritional Appearance: well nourished Orientation/consciousness: patient oriented x3 Limitations: no limitations HENMT: Head: normal to inspection Ears: hearing grossly normal bilaterally General nose exam: Normal external nose present Mouth: Yes Normal oral and palatal mucosa present, Yes
--- NOTE | 2022-03-11 15:04 | PM.PNGS ---
Progress Note: A&P Assessment and Plan (1) Bowel obstruction: Code(s): K56.609 - Unspecified intestinal obstruction, unspecified as to partial versus complete obstruction Status: Acute Assessment and Plan: Patient underwent ex lap yesterday and was found to have a closed loop obstruction secondary to adhesions and had an adhesiolysis. She removed her NG tube overnight, but overall seems to be doing well today. Will start clear liquids Increase activity as tolerated, will try getting up to the chair this afternoon. Repeat labs tomorrow Pathology pending (2) Dementia: Code(s): F03.90 - Unspecified dementia without behavioral disturbance Status: Acute (3) Coronary artery disease: Code(s): I25.10 - Atherosclerotic heart disease of [place] coronary artery without angina pectoris Status: Acute (4) intermediate (current) use of antithrombotics/antiplatelets: Code(s): Z79.02 - intermediate (current) use of antithrombotics/antiplatelets Status: Acute Assessment and Plan: Plavix on hold Plan I have discussed the patient's case and plan of care with Dr. Cardona. Subjective Subjective Date/Time Seen: 03/11/22 15:04 Post Op day: 1 (Adhesiolysis) Patient reports: no flatus, no bowel movement and afebrile Interval history: Patient seen and examined. She has dementia and history is limited. She is alert and answers questions appropriately. She denies any abdominal pain at this time. She denies any nausea or bloating. She does not recall noticing any flatus today. She has no specific complaints and appears comfortable. Per nursing, she pulled her NG tube out last night and 2 different IVs. Review of Systems Review of Systems: ROS unobtainable: Yes unobtainable due to mental status Exam Const: General: comfortable, no acute distress and awake Orientation/consciousness: oriented to person and Other orientation findings (History of dementia) Resp: Effort & Inspection: normal respiratory effort Auscultation: clear to auscultation bilaterally Cardio: Rate: regular rate Rhythm: regular rhythm GI: Inspection: non-distended and incision (Dry and braulio intact, no erythema) GI Palp: Yes Soft to palpation, Yes Tenderness to palpation present (GI) (incisional) and No Guarding due to palpation present (GI) Auscultation: normal bowel sounds Urinary Catheter: Urinary Catheter: patent and draining and urine clear Skin: General skin exam: normal color Neuro: General: moves all extremities and no focal motor deficits Extrem: General: no calf tenderness and no edema Psych: Insight: Limited insight present (Psych) Objective Data Vital Signs Vital Signs: Vital Signs - 24 hr 03/10/22 17:32 03/10/22 18:51 03/10/22 19:05 Temperature 98.4 F Pulse Rate 71 94 78 Respiratory Rate 18 15 19 Blood Pressure 177/57 H 146/55 H 149/58 H Pulse Oximetry 95 100 100 Oxygen Delivery Simple Face Mask Simple Face Mask Oxygen Flow Rate 6 6 03/10/22 19:20 03/10/22 19:35 03/10/22 19:41 Temperature 97.6 F Pulse Rate 72 75 71 Respiratory Rate 19 19 20 Blood Pressure 141/55 H 147/52 H 136/46 L Pulse Oximetry 92 94 93 Oxygen Delivery Room Air Room Air Oxygen Flow Rate 03/10/22 19:56 03/10/22 20:22 03/10/22 21:23 Temperature 97.7 F 97.6 F 97.5 F L Pulse Rate 75 69 75 Respiratory Rate 20 20 20 Blood Pressure 133/50 L 121/54 L 136/51 L Pulse Oximetry 93 94 90 Oxygen Delivery Oxygen Flow Rate 03/10/22 20:00 03/10/22 20:00 03/11/22 00:00 Temperature Pulse Rate 78 65 Respiratory Rate Blood Pressure Pulse Oximetry Oxygen Delivery Room Air Oxygen Flow Rate 03/11/22 01:26 03/11/22 04:00 03/11/22 04:45 Temperature 97.7 F 97.6 F Pulse Rate 77 0 L 73 Respiratory Rate 20 20 Blood Pressure 140/56 L 129/55 L Pulse Oximetry 91 91 Oxygen Delivery Oxygen Flow Rate 03/11/22 08:00 03/11/22 08:00 03/11/22 10:05 Temperatur
[2022-03-11] MEDS: LACTATED RINGERS 1,000 ML 70 ML IV CONT (17:26)
[2022-03-12] VITALS: PULSE 61
[2022-03-12 04:00] VITALS: PULSE 69
[2022-03-12] MEDS: LACTATED RINGERS 1,000 ML 70 ML IV CONT ×2 (05:59→16:42)
[2022-03-12 06:00] VITALS: BP 110/59; PULSE 76; RESP 20; TEMP 36.6; O2SAT 96
[2022-03-12 08:00] VITALS: PULSE 99
--- NOTE | 2022-03-12 08:52 | PM.PNGS ---
Progress Note: A&P Assessment and Plan (1) Bowel obstruction: Code(s): K56.609 - Unspecified intestinal obstruction, unspecified as to partial versus complete obstruction Status: Acute Assessment and Plan: Mild ileus might be developing. Will continue clear liquids this AM and await return of bowel function. Lopez out today D/C telemetry (2) Dementia: Code(s): F03.90 - Unspecified dementia without behavioral disturbance Status: Acute (3) Coronary artery disease: Code(s): I25.10 - Atherosclerotic heart disease of elim [place] coronary artery without angina pectoris Status: Acute (4) correction (current) use of antithrombotics/antiplatelets: Code(s): Z79.02 - correction (current) use of antithrombotics/antiplatelets Status: Acute Assessment and Plan: Plavix on hold Subjective Subjective Date/Time Seen: 03/12/22 08:52 Interval history: Patient just vomited once this AM. C/o nausea this AM. No BM or flatus yet. Exam GI: Inspection: distended and incision (intact with braulio) GI Palp: Yes Soft to palpation, Yes Tenderness to palpation present (GI) (incisional) and No Guarding due to palpation present (GI) Other: mildly distended this AM Objective Data Vital Signs Vital Signs: Vital Signs - 24 hr 03/11/22 10:05 03/11/22 12:00 03/11/22 14:00 Temperature 36.8 C Pulse Rate 63 59 L 70 Respiratory Rate 16 Blood Pressure 146/54 H Pulse Oximetry 90 96 Oxygen Delivery Room Air 03/11/22 16:00 03/11/22 19:52 03/11/22 20:00 Temperature 36.8 C Pulse Rate 62 64 59 L Respiratory Rate 20 Blood Pressure 104/62 Pulse Oximetry 91 Oxygen Delivery 03/11/22 20:00 03/12/22 00:00 03/12/22 04:00 Temperature Pulse Rate 59 L 61 69 Respiratory Rate 20 Blood Pressure Pulse Oximetry 91 Oxygen Delivery Room Air 03/12/22 06:00 Temperature 36.6 C Pulse Rate 76 Respiratory Rate 20 Blood Pressure 110/59 L Pulse Oximetry 96 Oxygen Delivery Intake/Output Intake/Output: Intake & Output 03/09/22 03/10/22 03/11/22 03/12/22 23:59 23:59 23:59 23:59 Intake Total 1250 2810 1000 Output Total 100 100 550 Balance 1150 2710 450 Meds/Results Medications: Active Medications Generic Name Dose Route Start Last Admin Trade Name Freq PRN Reason Stop Dose Admin Diphenhydramine HCl 25 mg 03/10/22 21:36 Diphenhydramine Hcl Inj 50 Mg/Ml Vial IV PUSH Q4H PRN Itching Enoxaparin Sodium 40 mg 03/11/22 09:00 03/11/22 08:19 Enoxaparin 40 Mg/0.4 Ml Syringe SUB-Q 40 mg DAILY NASIM Administration Hydralazine HCl 10 mg 03/10/22 21:44 Hydralazine Hcl 20 Mg/Ml Vial IV PUSH Q8H PRN Blood Pressure - High Lactated Ringer's 1,000 mls @ 70 mls/hr 03/10/22 19:41 03/12/22 05:59 Lr - Lactated Ringers Iv IV CONT 70 mls/hr .[id number] NASIM Administration Ceftriaxone Sodium/Dextrose 1 gm in 50 mls @ 100 mls/hr 03/10/22 21:00 03/11/22 21:25 Rocephin 1 Gm/D5w 50 Ml IVPB Infused Q24H NASIM Infusion Morphine Sulfate 2 mg 03/10/22 19:41 Morphine Sulfate (*Crx) 2 Mg/Ml Inj IV PUSH Q2H PRN Pain Rated 4-6 Nystatin 1 applic 03/11/22 09:00 03/11/22 20:56 Nystatin Ointment 15 Gm Tube TOPICAL 1 applic Q12HR NASIM Administration Ondansetron HCl 4 mg 03/10/22 19:41 Ondansetron Inj 4 Mg/2 Ml Vial IV PUSH Q4H PRN Nausea And Vomiting Phenol 1 spray 03/10/22 20:41 03/10/22 21:36 Phenol/Sod Pheno Axtell Maldonado (*Bkc) MUCOUS MEM 1 spray PRN PRN Administration Sore Throat Polyethylene Glycol 17 gm 03/12/22 09:00 Polyethylene Glycol 3350 17 Gm Powd.Pack PO QAM NASIM Triamcinolone Acetonide 1 applic 03/11/22 09:00 03/11/22 20:56 Triamcinolone Acet 0.1% Cream 15 Gm Tube TOPICAL 1 applic Q12HR NASIM Administration Radiology Results: ITS Impressions Abdomen/Pelvis CT 03/10/22 15:57 IMPRESSION: Obstruction of the ascend
[2022-03-12] MEDS: polyethylene glycoL 3350 17 GM POWD.PACK PO (09:29)
[2022-03-12] MEDS: ENOXAPARIN 40 MG/0.4 ML SYRINGE SUB-Q (09:29)
[2022-03-12] MEDS: NYSTATIN OINTMENT 15 GM TUBE 1 APPLIC TOPICAL ×2 (09:30→20:09)
[2022-03-12] MEDS: TRIAMCINOLONE ACET 0.1% CREAM 15 GM TUBE 1 APPLIC TOPICAL ×2 (09:30→20:09)
[2022-03-12 13:04] VITALS: BMI 19.1
[2022-03-12 14:00] VITALS: BP 116/53; PULSE 97; RESP 18; TEMP 35.7; O2SAT 93
--- NOTE | 2022-03-12 14:15 | PM.IMPN ---
Progress Note: A&P Assessment and Plan (1) S/P exploratory laparotomy: Code(s): Z98.890 - Other specified postprocedural states Status: Acute Assessment and Plan: - care per surgical team - POD2 - she may have ice chips but otherwise is NPO. - Hold p.o. medication until patient is eating and has bowel sounds - expiratory laparotomy with lysis of adhesions status post cecal volvulus - continue with analgesics - patient remains asymptomatic - Continue to trend labs (2) Major depression: Code(s): F32.9 - Major depressive disorder, single episode, unspecified Status: Acute Assessment and Plan: holding oral medication until she has bowel sounds. may resume p.o. medications when appropriate (3) Hypertension: Code(s): I10 - Essential (primary) hypertension Status: Acute Assessment and Plan: Current BP 110/59 p.r.n. hydralazine. on carvedilol 3.125mg PO Daily, resume p.o. medication when on a regular diet and having bowel sounds. (4) Hyperlipidemia: Code(s): E78.5 - Hyperlipidemia, unspecified Status: Acute Assessment and Plan: Holding home medication at this time. (5) UTI (urinary tract infection): Code(s): N39.0 - Urinary tract infection, site not specified Status: Acute Assessment and Plan: - Rocephin can probably be discontinued at this time - urine cultures show no growth - await sensitivities - Adjust accordingly (6) Dementia: Code(s): F03.90 - Unspecified dementia without behavioral disturbance Status: Acute Assessment and Plan: - holding home medication at this time. (7) Fungal infection: Code(s): B49 - Unspecified mycosis Status: Acute Assessment and Plan: continue with antifungal cream under her breast and growing. Time Spent With Patient Time with patient: Greater than 35 minutes Subjective Date/time seen: 03/12/221414 Interval history: 03/12/221414 Patient was lying in bed. Patient was alert oriented x1. I asked her what her birthday was not took her minutes tell me. She states she really needs to go home she has her daughter at home and she has to be close to take care of her. She denies any pain, shortness of breath, nausea, vomiting, diarrhea, constipation, weakness or fatigue at this time. Labs and vital signs remained stable at this time. 03/11/22 1215 patient stated that she feels okay. She did state that she did know she was in pain she has been running around today she states that she is urinating okay. Christie urine. No nausea vomiting diarrhea or constipation. She did states she has pain however she I asked her if she could read she says she was not good at that. She also said she is weak. Complete review of systems is unable to be obtained due to patient's mental status. Consult date: 03/10/22 Betty Gutierrez is a 82 year old female Who is from [facility].? she came to the emergency room with nausea and vomiting with epigastric pain that started since yesterday.? She had no diarrhea no recent sick contacts.? Her white count was? found to be 11.3.? Patient was found to have 3+ urine bacteria and moderate mucus with positive nitrates.? CT of the abdomen was read as the following?Obstruction of the ascending colon, likely due to twisting of retained cecal mesentery Mild to moderate free fluid in the dependent pelvis. Diverticulosis of the sigmoid colon; no CT evidence of diverticulitis Small sliding hiatal hernia ?surgery was called and she was taken to the? operating room she had exploratory laparotomy lysis of adhesions.? No immediate complications were noted. ? The hospitalist was asked to consult on the patient.? She was admitted to inpatient status per surgery on the date of service of 03/10/2022. Review of Systems Review of System
[2022-03-12 22:00] VITALS: BP 107/55; PULSE 79; RESP 16; TEMP 36.3; O2SAT 9
[2022-03-13 06:00] VITALS: BP 102/50; PULSE 78; RESP 16; TEMP 36.7; O2SAT 97
--- NOTE | 2022-03-13 10:09 | PM.IMPN ---
Progress Note: A&P Assessment and Plan (1) S/P exploratory laparotomy: Code(s): Z98.890 - Other specified postprocedural states Status: Acute Assessment and Plan: - s/p exploratory laparotomy with lysis of adhesions status post cecal volvulus - POD2, management per surgery - Hold p.o. medication until patient is eating and has bowel sounds (2) Major depression: Code(s): F32.9 - Major depressive disorder, single episode, unspecified Status: Acute Assessment and Plan: -holding oral medication until she has bowel sounds. -may resume p.o. medications when appropriate (3) Hypertension: Code(s): I10 - Essential (primary) hypertension Status: Acute Assessment and Plan: -Current BP 102/50 -p.r.n. hydralazine. -on carvedilol 3.125mg PO Daily, resume p.o. medication when on a regular diet and having bowel sounds. (4) Hyperlipidemia: Code(s): E78.5 - Hyperlipidemia, unspecified Status: Acute Assessment and Plan: Holding home medication at this time. (5) UTI (urinary tract infection): Code(s): N39.0 - Urinary tract infection, site not specified Status: Acute Assessment and Plan: - urine cultures show no growth - rocephin discontinued (6) Dementia: Code(s): F03.90 - Unspecified dementia without behavioral disturbance Status: Acute Assessment and Plan: - holding home medication at this time. (7) Fungal infection: Code(s): B49 - Unspecified mycosis Status: Acute Assessment and Plan: continue with antifungal cream under her breast Subjective Date/time seen: 03/13/22 10:09 Interval history: 82 yo female w/ hx of CAD and dementia admitted through general surgery primary service for SBO. Pt is alert to self only but otherwise confused. Does not know she is in the hospital. Denies pain, N/V. No complaints. Further hx limited secondary to mental status. Review of Systems Review of Systems: ROS unobtainable: Yes unobtainable due to mental status Exam Narrative: General: No acute distress, non toxic appearing, elderly Eyes: PERRL, no scleral icterus HEENT: NCAT, external ears normal, MMM Respiratory: No respiratory distress, Lungs CTA bilaterally, no wheezing Cardiovascular: RRR, no murmur Abdominal: Soft, minimal ttp, abdominal incision c/d/i, no rebound or guarding Musculoskeletal: Moves all 4 extremities, no edema Neurological: A/Ox1, speech clear, no facial asymmetry Skin: Warm, dry, no rashes Psychiatric: Confused Objective Data Vital Signs Vital Signs: Vital Signs - 24 hr 03/12/22 14:00 03/12/22 22:00 03/13/22 06:00 Temperature 96.2 F L 97.4 F L 98.0 F Pulse Rate 97 79 78 Respiratory Rate 18 16 16 Blood Pressure 116/53 L 107/55 L 102/50 L Pulse Oximetry 93 9 L 97 Intake/Output Intake/Output: Intake & Output 03/10/22 03/11/22 03/12/22 03/13/22 23:59 23:59 23:59 23:59 Intake Total 1250 2810 2125 Output Total 100 100 550 Balance 1150 2710 1575 Meds/Results Medications: Active Medications Generic Name Dose Route Start Last Admin Trade Name Freq PRN Reason Stop Dose Admin Diphenhydramine HCl 25 mg 03/10/22 21:36 Diphenhydramine Hcl Inj 50 Mg/Ml Vial IV PUSH Q4H PRN Itching Enoxaparin Sodium 40 mg 03/11/22 09:00 03/12/22 09:29 Enoxaparin 40 Mg/0.4 Ml Syringe SUB-Q 40 mg DAILY NASIM Administration Hydralazine HCl 10 mg 03/10/22 21:44 Hydralazine Hcl 20 Mg/Ml Vial IV PUSH Q8H PRN Blood Pressure - High Lactated Ringer's 1,000 mls @ 70 mls/hr 03/10/22 19:41 03/12/22 16:42 Lr - Lactated Ringers Iv IV CONT 70 mls/hr .[id number] NASIM Administration Morphine Sulfate 2 mg 03/10/22 19:41 Morphine Sulfate (*Crx) 2 Mg/Ml Inj IV PUSH Q2H PRN Pain Rated 4-6 Nystatin 1 applic 03/11/22 09:00 03/12/22 20:09 Nystatin Ointment 15 Gm Tube
[2022-03-13] MEDS: NYSTATIN OINTMENT 15 GM TUBE 1 APPLIC TOPICAL ×2 (10:35→20:45)
[2022-03-13] MEDS: ENOXAPARIN 40 MG/0.4 ML SYRINGE SUB-Q (10:35)
[2022-03-13] MEDS: polyethylene glycoL 3350 17 GM POWD.PACK PO (10:35)
[2022-03-13] MEDS: TRIAMCINOLONE ACET 0.1% CREAM 15 GM TUBE 1 APPLIC TOPICAL ×2 (10:36→20:45)
[2022-03-13] MEDS: LACTATED RINGERS 1,000 ML 70 ML IV CONT (11:04)
--- NOTE | 2022-03-13 12:14 | PM.PNGS ---
Progress Note: A&P Assessment and Plan (1) Bowel obstruction: Code(s): K56.609 - Unspecified intestinal obstruction, unspecified as to partial versus complete obstruction Status: Acute Assessment and Plan: Nausea resolved. Advance to full liquids today. 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 Hasn't received any Zofran. Pain controlled. Says she's hungry. No BM yet. Exam Const: General: cooperative, no acute distress and alert Orientation/consciousness: oriented to person GI: Inspection: non-distended and incision (intact with braulio) GI Palp: Yes Soft to palpation, Yes Tenderness to palpation present (GI) (incisional), No Guarding due to palpation present (GI) and Yes Other GI palpation findings present (mild ecchymosis in lower abdomen) Objective Data Vital Signs Vital Signs: Vital Signs - 24 hr 03/12/22 14:00 03/12/22 22:00 03/13/22 06:00 Temperature 35.7 C L 36.3 C L 36.7 C Pulse Rate 97 79 78 Respiratory Rate 18 16 16 Blood Pressure 116/53 L 107/55 L 102/50 L Pulse Oximetry 93 9 L 97 Intake/Output Intake/Output: Intake & Output 03/10/22 03/11/22 03/12/22 03/13/22 23:59 23:59 23:59 23:59 Intake Total 1250 2810 2125 1120 Output Total 100 100 550 Balance 1150 2710 1575 1120 Meds/Results Medications: Active Medications Generic Name Dose Route Start Last Admin Trade Name Freq PRN Reason Stop Dose Admin Acetaminophen 650 mg 03/13/22 12:12 Acetaminophen 325 Mg Tablet PO Q4H PRN Mild Pain (1-3) or Fever Diphenhydramine HCl 25 mg 03/10/22 21:36 Diphenhydramine Hcl Inj 50 Mg/Ml Vial IV PUSH Q4H PRN Itching Enoxaparin Sodium 40 mg 03/11/22 09:00 03/13/22 10:35 Enoxaparin 40 Mg/0.4 Ml Syringe SUB-Q 40 mg DAILY NASIM Administration Hydralazine HCl 10 mg 03/10/22 21:44 Hydralazine Hcl 20 Mg/Ml Vial IV PUSH Q8H PRN Blood Pressure - High Lactated Ringer's 1,000 mls @ 70 mls/hr 03/10/22 19:41 03/13/22 11:04 Lr - Lactated Ringers Iv IV CONT 70 mls/hr .[id number] NASIM Administration Morphine Sulfate 2 mg 03/10/22 19:41 Morphine Sulfate (*Crx) 2 Mg/Ml Inj IV PUSH Q2H PRN Pain Rated 4-6 Nystatin 1 applic 03/11/22 09:00 03/13/22 10:35 Nystatin Ointment 15 Gm Tube TOPICAL 1 applic Q12HR NASIM Administration Ondansetron HCl 4 mg 03/10/22 19:41 Ondansetron Inj 4 Mg/2 Ml Vial IV PUSH Q4H PRN Nausea And Vomiting Phenol 1 spray 03/10/22 20:41 03/10/22 21:36 Phenol/Sod Pheno [place] (*Bkc) MUCOUS MEM 1 spray PRN PRN Administration Sore Throat Polyethylene Glycol 17 gm 03/12/22 09:00 03/13/22 10:35 Polyethylene Glycol 3350 17 Gm Powd.Pack PO 17 gm QAM NASIM Administration Triamcinolone Acetonide 1 applic 03/11/22 09:00 03/13/22 10:36 Triamcinolone Acet 0.1% Cream 15 Gm Tube TOPICAL 1 applic Q12HR NASIM Administration Radiology Results: ITS Impressions Abdomen/Pelvis CT 03/10/22 15:57 IMPRESSION: Obstruction of the ascending colon, likely due to twisting of retained cecal mesentery Mild to moderate free fluid in the dependent pelvis. Diverticulosis of the sigmoid colon; no CT evidence of diverticulitis Small sliding hiatal hernia Dr. Canales telephoned the report on 03/10/2022 at 1618 hours to emergency room physician
[2022-03-13 14:05] VITALS: BP 130/53; PULSE 90; RESP 20; TEMP 35.9; O2SAT 90
[2022-03-13 20:00] VITALS: PULSE 82; RESP 16; O2SAT 92
[2022-03-13 20:42] VITALS: BP 105/52; PULSE 82; RESP 16; TEMP 36.7; O2SAT 92
[2022-03-14] MEDS: LACTATED RINGERS 1,000 ML 70 ML IV CONT (01:29)
[2022-03-14 05:48] LABS: Basophils Percent Auto 0.5 % (0.2-1.2); Eosinophils Absolute Auto 0.2 K/mm3 (0-0.3); Eosinophils Percent Auto 2.9 % (0-4.4); Hematocrit 36.8 % (37.0-47.0); Hemoglobin 11.5 g/dL (12.0-15.0); Immature Granulocyte Absolute 0.04 K/mm3 (0.00-0.031); Immature Granulocyte Percent A 0.6 % (0-0.5); Lymphocytes Absolute Auto 0.55 K/mm3 (0.9-3.2); Lymphocytes Percent Auto 8.4 % (18.3-44.2); Mean Corpuscular HGB Conc 31.3 g/dl (32-36); Mean Corpuscular Hemoglobin 28.8 pg (26-34); Mean Platelet Volume 9.9 fl (7.4-10.4); Monocytes Absolute Auto 0.7 K/mm3 (0.1-0.6); Monocytes Percent Auto 10.9 % (2.6-8.5); Neutrophils Percent Auto 76.7 % (45.5-73.1); Platelet Count Result 200 k/mm3 (150-375); Red Cell Distribution Width 13.8 % (11.5-14.5); White Blood Count 6.5 K/mm3 (4.5-10.0)
[2022-03-14 06:00] VITALS: BP 138/55; PULSE 85; RESP 18; TEMP 36.1; O2SAT 98
[2022-03-14 06:06] LABS: Anion Gap 4 mmol/L (8-16); Blood Urea Nitrogen 18 mg/dL (7-17); Calcium 7.7 mg/dL (8.4-10.2); Carbon Dioxide 30 mmol/L (22-30); Chloride 98 mmol/L (98-107); Estimated CRCL calculation 42 ml/min; Estimated Glomerular Filt Rate > 60; Glucose 113 mg/dL (65-110); Potassium 3.5 mmol/L (3.4-5.0); Sodium 132 mmol/L (137-145)
[2022-03-14] MEDS: ACETAMINOPHEN 325 MG TABLET 650 MG PO (07:30)
[2022-03-14] MEDS: TRIAMCINOLONE ACET 0.1% CREAM 15 GM TUBE 1 APPLIC TOPICAL ×2 (07:34→20:34)
[2022-03-14] MEDS: NYSTATIN OINTMENT 15 GM TUBE 1 APPLIC TOPICAL ×2 (07:34→20:34)
[2022-03-14] MEDS: polyethylene glycoL 3350 17 GM POWD.PACK PO (07:58)
[2022-03-14] MEDS: ENOXAPARIN 40 MG/0.4 ML SYRINGE SUB-Q (07:58)
--- NOTE | 2022-03-14 08:11 | PM.PNGS ---
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 No vomiting. No BM yet. Exam GI: Inspection: non-distended and incision (intact with braulio.) GI Palp: Yes Soft to palpation, Yes Tenderness to palpation present (GI) (incisional) and No Guarding due to palpation present (GI) Auscultation: Hypoactive bowel sounds present Objective Data Vital Signs Vital Signs: Vital Signs - 24 hr 03/13/22 14:05 03/13/22 20:42 03/13/22 20:00 Temperature 35.9 C L 36.7 C Pulse Rate 90 82 82 Respiratory Rate 20 16 16 Blood Pressure 130/53 L 105/52 L Pulse Oximetry 90 92 92 Oxygen Delivery Room Air 03/14/22 06:00 Temperature 36.1 C L Pulse Rate 85 Respiratory Rate 18 Blood Pressure 138/55 L Pulse Oximetry 98 Oxygen Delivery Intake/Output Intake/Output: Intake & Output 03/11/22 03/12/22 03/13/22 03/14/22 23:59 23:59 23:59 23:59 Intake Total 2810 2125 1360 1200 Output Total 100 550 200 Balance 2710 1575 1360 1000 Meds/Results Medications: Active Medications Generic Name Dose Route Start Last Admin Trade Name Freq PRN Reason Stop Dose Admin Acetaminophen 650 mg 03/13/22 12:12 03/14/22 07:30 Acetaminophen 325 Mg Tablet PO 650 mg Q4H PRN Administration Mild Pain (1-3) or Fever Diphenhydramine HCl 25 mg 03/10/22 21:36 Diphenhydramine Hcl Inj 50 Mg/Ml Vial IV PUSH Q4H PRN Itching Enoxaparin Sodium 40 mg 03/11/22 09:00 03/14/22 07:58 Enoxaparin 40 Mg/0.4 Ml Syringe SUB-Q 40 mg DAILY NASIM Administration Hydralazine HCl 10 mg 03/10/22 21:44 Hydralazine Hcl 20 Mg/Ml Vial IV PUSH Q8H PRN Blood Pressure - High Morphine Sulfate 2 mg 03/10/22 19:41 Morphine Sulfate (*Crx) 2 Mg/Ml Inj IV PUSH Q2H PRN Pain Rated 4-6 Nystatin 1 applic 03/11/22 09:00 03/14/22 07:34 Nystatin Ointment 15 Gm Tube TOPICAL 1 applic Q12HR NASIM Administration Ondansetron HCl 4 mg 03/10/22 19:41 Ondansetron Inj 4 Mg/2 Ml Vial IV PUSH Q4H PRN Nausea And Vomiting Phenol 1 spray 03/10/22 20:41 03/10/22 21:36 Phenol/Sod Pheno [place] (*Bkc) MUCOUS MEM 1 spray PRN PRN Administration Sore Throat Polyethylene Glycol 17 gm 03/12/22 09:00 03/14/22 07:58 Polyethylene Glycol 3350 17 Gm Powd.Pack PO 17 gm QAM NASIM Administration Triamcinolone Acetonide 1 applic 03/11/22 09:00 03/14/22 07:34 Triamcinolone Acet 0.1% Cream 15 Gm Tube TOPICAL 1 applic Q12HR NASIM Administration Radiology Results: ITS Impressions Abdomen/Pelvis CT 03/10/22 15:57 IMPRESSION: Obstruction of the ascending colon, likely due to twisting of retained cecal mesentery Mild to moderate free fluid in the dependent pelvis. Diverticulosis of the sigmoid colon; no CT evidence of diverticulitis Small sliding hiatal hernia Dr. Canales telephoned the report on 03/10/2022 at 1618 hours to emergency room physician . I recommend emergency surgical consultation. Labs Labs: Laboratory Results - last 24 hr 03/14/22 03/14/22 05:33 05:33 WBC 6.5 RBC 4.00 L Hgb 11.5 L
--- NOTE | 2022-03-14 11:09 | PM.IMPN ---
Progress Note: A&P Assessment and Plan (1) S/P exploratory laparotomy: Code(s): Z98.890 - Other specified postprocedural states Status: Acute Assessment and Plan: - s/p exploratory laparotomy with lysis of adhesions status post cecal volvulus - POD3, management per surgery - still no BM, still on liquids but not eating or drinking much (2) Major depression: Code(s): F32.9 - Major depressive disorder, single episode, unspecified Status: Acute Assessment and Plan: -continue home meds (3) Hypertension: Code(s): I10 - Essential (primary) hypertension Status: Acute Assessment and Plan: -Current BP 138/55 -continue home meds (4) Hyperlipidemia: Code(s): E78.5 - Hyperlipidemia, unspecified Status: Acute Assessment and Plan: -continue home meds (5) UTI (urinary tract infection): Code(s): N39.0 - Urinary tract infection, site not specified Status: Acute Assessment and Plan: - urine cultures show no growth - rocephin discontinued (6) Dementia: Code(s): F03.90 - Unspecified dementia without behavioral disturbance Status: Acute Assessment and Plan: -continue home meds (7) Fungal infection: Code(s): B49 - Unspecified mycosis Status: Acute Assessment and Plan: continue with antifungal cream under her breast Subjective Date/time seen: 03/14/22 11:09 Interval history: 82 yo female w/ hx of CAD and dementia admitted through general surgery primary service for SBO. Pt is alert to self only but otherwise confused. Does not know she is in the hospital. States she feels sick to her stomach but denies abd pain. Still no BM. Further hx limited. Review of Systems Review of Systems: ROS unobtainable: Yes unobtainable due to mental status Exam Narrative: General: No acute distress, non toxic appearing, elderly Eyes: PERRL, no scleral icterus HEENT: NCAT, external ears normal, MMM Respiratory: No respiratory distress, Lungs CTA bilaterally, no wheezing Cardiovascular: RRR, no murmur Abdominal: Soft, minimal ttp, abdominal incision c/d/i, no rebound or guarding Musculoskeletal: Moves all 4 extremities, no edema Neurological: A/Ox1, speech clear, no facial asymmetry Skin: Warm, dry, no rashes Psychiatric: Confused Objective Data Vital Signs Vital Signs: Vital Signs - 24 hr 03/13/22 14:05 03/13/22 20:42 03/13/22 20:00 Temperature 96.6 F L 98.1 F Pulse Rate 90 82 82 Respiratory Rate 20 16 16 Blood Pressure 130/53 L 105/52 L Pulse Oximetry 90 92 92 Oxygen Delivery Room Air 03/14/22 06:00 03/14/22 09:31 Temperature 96.9 F L Pulse Rate 85 Respiratory Rate 18 Blood Pressure 138/55 L Pulse Oximetry 98 Oxygen Delivery Room Air Intake/Output Intake/Output: Intake & Output 03/11/22 03/12/22 03/13/22 03/14/22 23:59 23:59 23:59 23:59 Intake Total 2810 2125 1360 1220 Output Total 100 550 200 Balance 2710 1575 1360 1020 Meds/Results Medications: Active Medications Generic Name Dose Route Start Last Admin Trade Name Freq PRN Reason Stop Dose Admin Acetaminophen 650 mg 03/13/22 12:12 03/14/22 07:30 Acetaminophen 325 Mg Tablet PO 650 mg Q4H PRN Administration Mild Pain (1-3) or Fever Diphenhydramine HCl 25 mg 03/10/22 21:36 Diphenhydramine Hcl Inj 50 Mg/Ml Vial IV PUSH Q4H PRN Itching Enoxaparin Sodium 40 mg 03/11/22 09:00 03/14/22 07:58 Enoxaparin 40 Mg/0.4 Ml Syringe SUB-Q 40 mg DAILY NASIM Administration Hydralazine HCl 10 mg 03/10/22 21:44 Hydralazine Hcl 20 Mg/Ml Vial IV PUSH Q8H PRN Blood Pressure - High Morphine Sulfate 2 mg 03/10/22 19:41 Morphine Sulfate (*Crx) 2 Mg/Ml Inj IV PUSH Q2H PRN Pain Rated 4-6 Nystatin 1 applic 03/11/22 09:00 03/14/22 07:34 Nystatin Ointment 15 Gm Tube TOPICAL 1 applic Q12HR [facility]
--- NOTE | 2022-03-14 11:31 | PCNFU ---
Nutrition Follow-Up Complete: Inadequate energy intake related to altered GI function as evidenced by pt report of feeling nauseated, clear liquid status Goal: Meet nutritional needs Patient has limited progress. will continue current goal. Pt current nutrition is Full liquids. Last recorded weight is 49 kg, no new weight to report. Bowel Motility:No BM-suppository today. Labs Reviewed:Glu 113, Na 132, Hct 36.8,Hgb 11.5 Meds Noted:Miralax, Lovenox Skin: WNL Additional Notes: Patient seen today for nutrition follow. PO intake has been poor, 5-20% of liquids. Ensure compact added today for additional 220 kcals and 9 gms protein. Recommend advancing diet as tolerated per MD orders. Monitor for diet order, intake, tolerance, wt, labs. Follow up in 3 days.
[2022-03-14 12:50] VITALS: BP 126/50; PULSE 73; RESP 18; TEMP 35.9; O2SAT 93
[2022-03-14 12:52] VITALS: PULSE 73
[2022-03-14] MEDS: ATORVASTATIN 40 MG TABLET PO (12:52)
[2022-03-14] MEDS: CLOPIDOGREL BISULFATE 75 MG TABLET PO (12:52)
[2022-03-14] MEDS: predniSONE 10 MG TABLET 30 MG PO (12:52)
[2022-03-14] MEDS: carvediloL 3.125 MG TABLET PO (12:52)
[2022-03-14] MEDS: COLESTIPOL HCL 1 GM TABLET PO ×3 (12:52→20:34)
[2022-03-14] MEDS: DIVALPROEX SODIUM DR 250 MG TABEC 500 MG PO ×2 (12:52→16:08)
[2022-03-14] MEDS: SERTRALINE HCL 50 MG TABLET PO (12:52)
[2022-03-14] MEDS: SACCHAROMYCES BOULARDII 250 MG CAPSULE 500 MG BY MOUTH (16:07)
[2022-03-14] MEDS: POTASSIUM CHLORIDE 20 MEQ TABLET.ER PO (16:10)
[2022-03-14 20:14] VITALS: BP 127/73; PULSE 68; RESP 16; TEMP 36.6; O2SAT 96
[2022-03-14] MEDS: ARIPiprazole 5 MG TABLET PO (20:34)
[2022-03-14] MEDS: DONEPEZIL HCL 10 MG TABLET PO (20:34)
[2022-03-15 06:05] VITALS: BP 151/47; PULSE 62; RESP 16; TEMP 36.4; O2SAT 93
[2022-03-15 06:41] LABS: Basophils Percent Auto 0.2 % (0.2-1.2); Eosinophils Absolute Auto 0.1 K/mm3 (0-0.3); Eosinophils Percent Auto 2.4 % (0-4.4); Hematocrit 40.9 % (37.0-47.0); Hemoglobin 12.6 g/dL (12.0-15.0); Immature Granulocyte Absolute 0.03 K/mm3 (0.00-0.031); Immature Granulocyte Percent A 0.7 % (0-0.5); Lymphocytes Absolute Auto 0.52 K/mm3 (0.9-3.2); Lymphocytes Percent Auto 11.4 % (18.3-44.2); Mean Corpuscular HGB Conc 30.8 g/dl (32-36); Mean Platelet Volume 9.9 fl (7.4-10.4); Monocytes Absolute Auto 0.5 K/mm3 (0.1-0.6); Monocytes Percent Auto 9.9 % (2.6-8.5); Neutrophils Absolute Auto 3.4 K/mm3 (1.3-6.7); Neutrophils Percent Auto 75.4 % (45.5-73.1); Platelet Count Result 193 k/mm3 (150-375); Red Blood Count 4.35 M/mm3 (4.2-5.4); Red Cell Distribution Width 13.9 % (11.5-14.5); White Blood Count 4.6 K/mm3 (4.5-10.0)
[2022-03-15 07:13] LABS: Anion Gap 7 mmol/L (8-16); Blood Urea Nitrogen 13 mg/dL (7-17); Calcium 7.7 mg/dL (8.4-10.2); Carbon Dioxide 28 mmol/L (22-30); Chloride 100 mmol/L (98-107); Estimated CRCL calculation 48 ml/min; Estimated Glomerular Filt Rate > 60; Glucose 93 mg/dL (65-110); Potassium 4.3 mmol/L (3.4-5.0); Sodium 135 mmol/L (137-145)
[2022-03-15] MEDS: COLESTIPOL HCL 1 GM TABLET PO ×3 (08:24→17:27)
[2022-03-15] MEDS: ACETAMINOPHEN 325 MG TABLET 650 MG PO (08:24)
[2022-03-15 08:25] VITALS: PULSE 68
[2022-03-15] MEDS: POTASSIUM CHLORIDE 20 MEQ TABLET.ER PO ×2 (08:25→17:27)
[2022-03-15] MEDS: DIVALPROEX SODIUM DR 250 MG TABEC 500 MG PO ×3 (08:25→17:27)
[2022-03-15] MEDS: SERTRALINE HCL 50 MG TABLET PO (08:25)
[2022-03-15] MEDS: ATORVASTATIN 40 MG TABLET PO (08:25)
[2022-03-15] MEDS: carvediloL 3.125 MG TABLET PO (08:25)
[2022-03-15] MEDS: CLOPIDOGREL BISULFATE 75 MG TABLET PO (08:25)
[2022-03-15] MEDS: ENOXAPARIN 40 MG/0.4 ML SYRINGE SUB-Q (08:26)
[2022-03-15] MEDS: predniSONE 10 MG TABLET 30 MG PO (08:26)
[2022-03-15] MEDS: SACCHAROMYCES BOULARDII 250 MG CAPSULE 500 MG BY MOUTH ×2 (08:26→17:26)
[2022-03-15] MEDS: TRIAMCINOLONE ACET 0.1% CREAM 15 GM TUBE 1 APPLIC TOPICAL (08:26)
[2022-03-15] MEDS: NYSTATIN OINTMENT 15 GM TUBE 1 APPLIC TOPICAL (08:27)
[2022-03-15 12:06] LABS: EDCOVIDSCREEN Negative (Negative)
--- NOTE | 2022-03-15 12:36 | PM.DS ---
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 CT showed evidence of a large bowel obstruction with possible cecal volvulus. She was taken emergently for exploratory laparotomy on 03/10/2022. An adhesive band causing a closed loop obstruction the terminal ileum and cecum was identified. Adhesiolysis was performed but no bowel resection was required. She was placed in the hospital postoperatively and NG tube was placed to decompress the bowel. She was continued on IV fluids and bowel rest until she was showing signs of bowel function returning. Hospitalist was consulted for medical management. The patient was demented and baseline orientation x1. She removed her NG tube overnight on postop day 0. Due to her dementia and combativeness, no attempts to replace the NG tube were made. On postop day 1 she was remaining hemodynamically stable and pain was well controlled. On postop day 2 she did have some evidence of bowel sounds and was therefore placed on a clear liquid diet. Her diet and activity were slowly advanced as tolerated. She did not have much of an appetite but was overall tolerating diet advancement. She did have 1 episode of emesis and was possibly showing signs of an ileus developing, but emesis did appear to resolve and she then began having bowel movements. Her diet was then gradually advanced to a soft regular diet on 03/14/2022. She was continuing to move her bowels and was tolerating her diet even though she was not eating a whole lot. She was then discharged on 03/15/2022 back to her [facility]. Status at Discharge Functional status at discharge: uses cane/walker Overall status at discharge: patient is progressing back to baseline Time Spent with Patient Time attestation: Total time spent providing and/or coordinating discharge services: Time spent: Less than 30 minutes Exam GI: Inspection: non-distended, incision ( Intact with braulio) and other ( mild ecchymosis along the lower abdomen) GI Palp: Yes Soft to palpation, No Tenderness to palpation present (GI) and No Guarding due to palpation present (GI) Auscultation: normal bowel sounds DS: Data Data Completed and Pending Completed studies during hospitalization: Pending at discharge 03/10/22 18:21 Surgical [PTH] Routine Labs on day of discharge: Labs from last 24 hours 03/15/22 03/15/22 03/15/22 11:44 05:43 05:43 WBC 4.6 RBC 4.35 Hgb 12.6 Hct 40.9 MCV 94.0 MCH 29.0 MCHC 30.8 L RDW 13.9 Plt Count 193 MPV 9.9 Immature Gran % (Auto) 0.7 H Neut % (Auto) 75.4 H Lymph % (Auto) 11.4 L [place] % (Auto) 9.9 H Eos % (Auto) 2.4 Baso % (Auto) 0.2 Lymph # (Auto) 0.52 L [place] # (Auto) 0.5 Eos # (Auto) 0.1 Baso # (Auto) 0.0 Abs Immat Gran (auto) 0.03 Absolute N
--- NOTE | 2022-03-15 13:08 | PM.IMPN ---
Progress Note: A&P Assessment and Plan (1) S/P exploratory laparotomy: Code(s): Z98.890 - Other specified postprocedural states Status: Acute Assessment and Plan: - s/p exploratory laparotomy with lysis of adhesions status post cecal volvulus - POD4, management per surgery. I believe she is being discharged today. - she had a bowel movement yesterday and today. - Okay to discharge from medical standpoint - follow-up with surgery outpatient (2) Major depression: Code(s): F32.9 - Major depressive disorder, single episode, unspecified Status: Acute Assessment and Plan: - in good spirits today. continue home meds (3) Hypertension: Code(s): I10 - Essential (primary) hypertension Status: Acute Assessment and Plan: -Current BP 151/47 - continue carvedilol (4) Hyperlipidemia: Code(s): E78.5 - Hyperlipidemia, unspecified Status: Acute Assessment and Plan: -continue statin therapy (5) UTI (urinary tract infection): Code(s): N39.0 - Urinary tract infection, site not specified Status: Acute Assessment and Plan: - urine cultures show no growth - rocephin discontinued (6) Dementia: Code(s): F03.90 - Unspecified dementia without behavioral disturbance Status: Acute Assessment and Plan: pleasantly confused - continue home medications (7) Fungal infection: Code(s): B49 - Unspecified mycosis Status: Acute Assessment and Plan: continue with antifungal cream under her breast Time Spent With Patient Time with patient: 25 - 35 minutes Subjective Date/time seen: 03/15/22 13:08 Interval history: Pt is a 82-year-old female here for cecal volvulus. patient was seen today and is pleasantly confused. She has no complaints such as chest pain, shortness of breath, pain, nausea or vomiting. She has been eating and last had a bowel movement today. when asked, she says that she knew about her heart murmur. Review of Systems Review of Systems: All systems reviewed & are unremarkable except as noted in HPI and below Exam Narrative: General: Well developed well nourished patient in NAD HEENT: normocephalic Neck: supple Neuro: Alert and oriented to herself but was not able to tell me where she was or who the president was CV:RRR with loud systolic murmur heard in all areas Resp:CTA Abd: Soft, non distended. incision site clean and dry with out purulence, dehiscence, or bleeding. Some bruising to inferior aspect Extremities: No swelling, erythema, or pain to palpation. Objective Data Vital Signs Vital Signs: Vital Signs - 24 hr 03/14/22 20:14 03/15/22 06:05 03/15/22 08:25 Temperature 97.9 F 97.6 F Pulse Rate 68 62 68 Respiratory Rate 16 16 Blood Pressure 127/73 151/47 H Pulse Oximetry 96 93 Oxygen Delivery 03/15/22 08:00 Temperature Pulse Rate Respiratory Rate Blood Pressure Pulse Oximetry Oxygen Delivery Room Air Intake/Output Intake/Output: Intake & Output 03/12/22 03/13/22 03/14/22 03/15/22 23:59 23:59 23:59 23:59 Intake Total 2125 1360 1860 730 Output Total 550 200 Balance 1575 1360 1660 730 Meds/Results Medications: Active Medications Generic Name Dose Route Start Last Admin Trade Name Freq PRN Reason Stop Dose Admin Acetaminophen 650 mg 03/13/22 12:12 03/15/22 08:24 Acetaminophen 325 Mg Tablet PO 650 mg Q4H PRN Administration Mild Pain (1-3) or Fever Aripiprazole 5 mg 03/14/22 21:00 03/14/22 20:34 Aripiprazole 5 Mg Tablet PO 5 mg HS NASIM Administration Atorvastatin Calcium 40 mg 03/14/22 12:00 03/15/22 08:25 Atorvastatin 40 Mg Tablet PO 40 mg DAILY NASIM Administration Carvedilol 3.125 mg 03/14/22 12:00 03/15/22 08:25 Carvedilol 3.125 Mg Tablet PO 3.125 mg DAILY NASIM Administration Clopidogrel Bisulfate 75 mg 03/14/22 12:00 03/15/22
--- NOTE | 2022-03-15 13:52 | PC.NURSE ---
report called to [facility] at 1303 at [facility], reviewed pt condition and plan of care, EMS contacted and est time of transfer for 1729
[2022-03-15 14:00] VITALS: BP 136/42; PULSE 57; RESP 20; TEMP 36.2; O2SAT 93
== END 2022-03-15 19:36 | DRG 336 ==
LOC: ANHED 14:33 → ANHSURGERY 17:20 → ANH3MED 22:23
PROVIDERS: Physician Assistant; Admitting Provider Surgery; Emergency Provider Emergency Medicine; PCP Family Medicine; Visit Provider Surgery
PROC: 0DNH0ZZ Release Cecum, Open Approach (ICD-10-PCS; CPT 49000; principal; 2022-03-10 17:30)
DX: K56.50 Intestinal adhesions [bands], unspecified as to partial versus complete obstruction (principal); B49 Unspecified mycosis; Z20.822 Contact with and (suspected) exposure to COVID-19; K44.9 Diaphragmatic hernia without obstruction or gangrene; K57.30 Diverticulosis of large intestine without perforation or abscess without bleeding; F03.90 Unspecified dementia, unspecified severity, without behavioral disturbance, psychotic disturbance, mood disturbance, and anxiety; I11.0 Hypertensive heart disease with heart failure; I50.9 Heart failure, unspecified; I25.10 Atherosclerotic heart disease of native coronary artery without angina pectoris; F32.9 Major depressive disorder, single episode, unspecified; Z66 Do not resuscitate; Z79.02 Long term (current) use of antithrombotics/antiplatelets; Z79.899 Other long term (current) drug therapy; Z88.0 Allergy status to penicillin; Z88.2 Allergy status to sulfonamides; Z87.891 Personal history of nicotine dependence
CPT/HCPCS: 36415; 74177; 80048; 80053; 81001; 83690; 85025; 85027; 87086; 87426; 88304; 96361; 96374; 96375; 97110; 97161; 97165; 99285; A9270; C9803; J0131; J0330; J0690; J0696; J1650; J2405; J2704; J2710; J3010; J7030; J7120; J7512; Q9967

== ENCOUNTER 2022-06-27 14:35 | Emergency (ER) | payer MEDICARE, MEDICAID, SELFPAY ==
[2022-06-27] VITALS (14 sets, daily range): BP systolic 130–157; BP diastolic 49–65; PULSE 74–77; RESP 16–18; TEMP 36.7; O2SAT 93–100
--- NOTE | ~2022-06-27 | XR_ITS ---
XR hand LT min 3V DATE: 06/27/2022 15:43 INDICATION: Left hand swelling. No injury. TECHNIQUE: 3 views COMPARISON: 02/01/2022 portable AP chest FINDINGS: There is diffuse osteopenia. No fracture or dislocation is evident. There is some patchy lucency and erosion along the medial aspect of the head of the third metacarpal bone. There is linear periosteal reaction the full length of the shaft of the proximal phalanx of the third digit. There may be very subtle focal erosion of the medial aspect of the head of the second metacarpal bone . No periosteal reaction or bone destruction is noted otherwise. There is osteoarthritis involving primarily the triscaphe and some interphalangeal joints, most notab ly in the proximal and distal interphalangeal joints of the second digit and proximal interphalangeal joint of the third digit There is a U-shaped linear radiopaque foreign body in the soft tissues of the distal aspect of the fi rst digit. 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
--- NOTE | 2022-06-27 15:28 | ED.EXTPRO ---
HPI - Extremity Problem General Chief complaint: Extremity Injury, Upper Stated complaint: hand/finger swelling Time Seen by Provider: 06/27/22 14:59 History of Present Illness HPI Narrative: 82-year-old female presenting to the emergency department for evaluation of left hand pain and swelling. Patient resides at a local intermediate. Patient is unsure how she injured her hand. Staff states that this noticed it yesterday. Patient agrees with that is starting yesterday. Related Data Home Medications Medication Instructions Recorded Confirmed Florastor 250 mg BYMOUTH BID 03/10/22 03/24/22 Miralax 17 g BYMOUTH DAILY 03/10/22 03/24/22 aripiprazole 5 mg tablet 5 mg PO HS 03/10/22 03/24/22 atorvastatin 40 mg tablet 40 mg PO DAILY 03/10/22 03/24/22 carvedilol 3.125 mg tablet 3.125 mg PO DAILY 03/10/22 03/24/22 clobetasol 0.05 % topical BID 03/10/22 03/24/22 clopidogrel 75 mg tablet 75 mg PO DAILY 03/10/22 03/24/22 colestipol 1 gram tablet 1 g PO QID 03/10/22 03/24/22 divalproex 250 mg tablet,delayed 500 mg PO TID 03/10/22 03/24/22 release donepezil 10 mg tablet 10 mg PO HS 03/10/22 03/24/22 nystatin 100,000 unit/gram topical 100,000 unit topical BID 03/10/22 03/24/22 ointment potassium chloride 20 mEq 20 meq PO BID 03/10/22 03/24/22 tablet,extended release(part/cryst) prednisone 10 mg tablet 30 mg PO DAILY 03/10/22 03/24/22 sertraline 50 mg tablet 50 mg PO DAILY 03/10/22 03/24/22 Allergies Allergy/AdvReac Type Severity Reaction Status Date / Time Penicillins Allergy Unknown Verified 03/21/22 09:28 Sulfa (Sulfonamide Allergy Unknown Verified 03/21/22 09:28 Antibiotics) Review of Systems Review of Systems: CONSTITUTIONAL: Denies fever, chills, or sweats. EYES: Denies visual changes, redness, or discharge. ENT: Denies rhinorrhea, congestion, sore throat, or otalgia. CARDIOVASCULAR: Denies chest pain, palpitations, or edema. RESPIRATORY: Denies cough or dyspnea. GASTROINTESTINAL: Denies abdominal pain, nausea, vomiting, or diarrhea. GENITOURINARY: Denies dysuria or hematuria. SKIN: Denies rash or itching. MUSCULOSKELETAL: Left hand pain NEUROLOGIC: Denies headache, numbness, or weakness. [facility] Past Medical History Medical History CHF (congestive heart failure) Coronary artery disease Dementia Hyperlipidemia Hypertension Major depression Surgical History Surgical History History of hip replacement History of hysterectomy S/P exploratory laparotomy 03/10/2022 with lysis of adhesions Dr. [facility] Family History Family History Unknown No problems noted. Social History Social History Social History: she currently lives in a intermediate [facility]. she talks about her daughter Dora being the power litigation attorney. she is and she is retired. her daughter Dora May is listed as her contact. Code status DNR Smoking status: Former smoker Alcohol intake: never Substance use: never Spiritual care concerns: No Exam Narrative: APPEARANCE: Well appearing, no pain, no distress, well-nourished. HEAD: normocephalic, atraumatic. EYES: PERRLA/EOMI, conjunctivae clear. NOSE: Normal no drainage NECK: Supple. No adenopathy, no masses. RESPIRATORY: Airway patent, respirations nonlabored. Clear to auscultation bilaterally, no rales, rhonchi, wheezing. CARDIOVASCULAR: Regular rate and rhythm without murmurs rubs or gallops. ABDOMINAL: Soft, nontender, nondistended, normal bowel sounds MUSCULOSKELETAL: Moves all extremities. Swelling to left hand and fourth finger. Some ecchymosis but no erythema. NEURO: Alert. Cranial nerves II through XII intact. Grossly intact SKIN: Warm, dry. Normal Color Course Course Emergency Course: Patient was spl
--- NOTE | 2022-06-27 18:30 | PC.NURSE ---
Patient's daughter arrived to transport patient back to [facility]. Patient assisted into her daughters car without difficulty.
== END 2022-06-27 18:30 | disposition home or self-care (01) ==
PROVIDERS: Emergency Provider Emergency Medicine; PCP Family Medicine
DX: S60.222A Contusion of left hand, initial encounter (principal); S69.92XA Unspecified injury of left wrist, hand and finger(s), initial encounter; I25.10 Atherosclerotic heart disease of native coronary artery without angina pectoris; E78.5 Hyperlipidemia, unspecified; I11.0 Hypertensive heart disease with heart failure; I50.9 Heart failure, unspecified; F03.90 Unspecified dementia, unspecified severity, without behavioral disturbance, psychotic disturbance, mood disturbance, and anxiety; X58.XXXA Exposure to other specified factors, initial encounter
CPT/HCPCS: 73130; 99283

== ENCOUNTER 2022-06-30 20:17 | Emergency (ER) | payer MEDICARE, MEDICAID, SELFPAY ==
--- NOTE | ~2022-06-30 | CT_ITS ---
EXAMINATION: CT brain wo con DATE: 06/30/2022 20:49 INDICATION: fall, hematoma, on plavix . TECHNIQUE: Computed tomography (CT) of the head was performed without intravenous contrast. The mA wa s adjusted according to patient size. Iterative reconstruction technique was employed. The dose-lengt h product was 605.33 mGy-cm. COMPARISON: 02/01/2022 FINDINGS: No acute intracranial hemorrhage or extra-axial fluid collection. No hydrocephalus, mass, or herniation. No acute ischemic infarct. Unremarkable dural venous sinus attenuation. No acute osseous abnormality. Left frontotemporal scalp swelling The aerated spaces are clear. Mild atrophy and chronic white matter change. Atherosclerotic intracranial calcification. Bilateral l ens replacements. IMPRESSION: No acute intracranial process. Reviewed, dictated and finalized at location K. S CURVATURE GAUGER
--- NOTE | ~2022-06-30 | CT_ITS ---
EXAMINATION: CT cervical spine wo con DATE: 06/30/2022 20:49 INDICATION: fall TECHNIQUE: Computed tomography (CT) of the cervical spine was performed without intravenous contrast. Automated exposure control and iterative reconstruction technique were employed. The dose-length pro duct was 111.58 mGy-cm. COMPARISON: None FINDINGS: Vertebral Body Alignment: Intact. Craniocervical and atlantoaxial alignment: Moderate degenerative change. Alignment intact. Osseous structures/fracture: No evidence of a lytic or blastic process in the visualized spine. No e vidence of acute fracture. Cervical soft tissues: The paraspinal soft tissues planes are maintained. Multiple surgical clips in the anterior neck soft tissues. Degenerative changes: Multilevel mild and moderate degenerative disc disease. Multilevel severe facet arthropathy with multilevel facet fusions. IMPRESSION: No acute fracture or traumatic malalignment in the cervical spine. Reviewed, dictated and finalized at location K. ISH TUTOR
--- NOTE | ~2022-06-30 | XR_ITS ---
EXAM: XR ankle LT min 3V DATE: 06/30/2022 20:54 HISTORY: left ankle pain, 2 FALLS TODAY, BLEEDING TO LATERAL SIDE . COMPARISON: None available. FINDINGS: Decreased mineralization. No fracture or dislocation. No lytic or blastic lesion. Degenera tive changes at the tibiotalar joint. Achilles and plantar enthesopathy. No erosion or periosteal urbano nge. Soft tissues within normal limits. IMPRESSION: No acute osseous finding in the left ankle. Reviewed, dictated and finalized at location K. ING BALL MOLDER
[2022-06-30 20:22] VITALS: O2SAT 100
[2022-06-30 20:24] VITALS: BP 135/57; O2SAT 100
[2022-06-30 20:27] VITALS: BP 130/85; PULSE 66; RESP 14; TEMP 37.1; O2SAT 98
[2022-06-30 20:30] VITALS: O2SAT 99
[2022-06-30 20:31] VITALS: BP 151/53; O2SAT 98
[2022-06-30 20:32] VITALS: O2SAT 97
--- NOTE | 2022-06-30 20:36 | PC.NURSE ---
Patient off unit to CT.
--- NOTE | 2022-06-30 20:40 | PC.NURSE ---
Patient off unit to Radiology.
--- NOTE | 2022-06-30 21:15 | ED.FALL ---
HPI - Fall General Chief Complaint: Fall Stated Complaint: FALL, HEAD INJURY Time Seen by Provider: 06/30/22 20:20 History of Present Illness HPI Narrative: 82-year-old female presenting to the emergency department for evaluation after having a ground-level fall. Nursing reports that the patient had a normal fall and did strike her head. Patient does not remember having a fall. Related Data Home Medications Medication Instructions Recorded Confirmed Florastor 250 mg BYMOUTH BID 03/10/22 03/24/22 Miralax 17 g BYMOUTH DAILY 03/10/22 03/24/22 aripiprazole 5 mg tablet 5 mg PO HS 03/10/22 03/24/22 atorvastatin 40 mg tablet 40 mg PO DAILY 03/10/22 03/24/22 carvedilol 3.125 mg tablet 3.125 mg PO DAILY 03/10/22 03/24/22 clobetasol 0.05 % topical BID 03/10/22 03/24/22 clopidogrel 75 mg tablet 75 mg PO DAILY 03/10/22 03/24/22 colestipol 1 gram tablet 1 g PO QID 03/10/22 03/24/22 divalproex 250 mg tablet,delayed 500 mg PO TID 03/10/22 03/24/22 release donepezil 10 mg tablet 10 mg PO HS 03/10/22 03/24/22 nystatin 100,000 unit/gram topical 100,000 unit topical BID 03/10/22 03/24/22 ointment potassium chloride 20 mEq 20 meq PO BID 03/10/22 03/24/22 tablet,extended release(part/cryst) prednisone 10 mg tablet 30 mg PO DAILY 03/10/22 03/24/22 sertraline 50 mg tablet 50 mg PO DAILY 03/10/22 03/24/22 Allergies Allergy/AdvReac Type Severity Reaction Status Date / Time Penicillins Allergy Unknown Verified 03/21/22 09:28 Sulfa (Sulfonamide Allergy Unknown Verified 03/21/22 09:28 Antibiotics) Review of Systems Review of Systems: ROS unobtainable: Yes unobtainable due to medical condition PMFSH Past Medical History Medical History CHF (congestive heart failure) Coronary artery disease Dementia Hyperlipidemia Hypertension Major depression Surgical History Surgical History History of hip replacement History of hysterectomy S/P exploratory laparotomy 03/10/2022 with lysis of adhesions Dr. Matthew bains Family History Family History Unknown No problems noted. Social History Social History Social History: she currently lives in a [place] [facility]. she talks about her daughter Dora being the power criminal defense attorney. she is and she is retired. her daughter Dora May is listed as her contact. Code status DNR Smoking status: Former smoker Alcohol intake: never Substance use: never Spiritual care concerns: No Exam Narrative: APPEARANCE: Well appearing, no pain, no distress, well-nourished. HEAD: normocephalic, atraumatic. EYES: PERRLA/EOMI, conjunctivae clear. NOSE: Normal no drainage THROAT: Pharynx clear, no exudate. NECK: Supple. No adenopathy, no masses. RESPIRATORY: Airway patent, respirations nonlabored. Clear to auscultation bilaterally, no rales, rhonchi, wheezing. CARDIOVASCULAR: Regular rate and rhythm without murmurs rubs or gallops. ABDOMINAL: Soft, nontender, nondistended, normal bowel sounds MUSCULOSKELETAL: Moves all extremities. Tenderness to left ankle NEURO: Alert. Cranial nerves II through XII intact. Grossly intact SKIN: Warm, dry. Normal Color Course Course Emergency Course: Head CT and neck CT were negative for acute findings patient's ankle x-ray was negative. Patient denies any complaints at this time. Patient was discharged back to her snf facility. Vital Signs Vital signs: Vital Signs Pulse Oximetry 100 06/30/22 20:22 Temperature 98.7 F 06/30/22 20:27 Pulse Rate 66 06/30/22 20:27 Respiratory Rate 14 06/30/22 20:27 Blood Pressure 151/53 H 06/30/22 20:31 Pulse Oximetry 97 06/30/22 20:32 Oxygen Delivery Room Air 06/30/22 20:27 [facility]
--- NOTE | 2022-06-30 23:08 | PC.NURSE ---
Patient report given JAIRON Cortez. All questions answered and care of patient transferred. Patient resting quietly in stretcher with eyes closed. Regular respirations. Appears to be asleep. Call-light within reach and fall alarm on. Awaiting transport back to [facility]. VSS.
== END 2022-06-30 23:51 ==
PROVIDERS: Emergency Provider Emergency Medicine; PCP Family Medicine
DX: S09.90XA Unspecified injury of head, initial encounter (principal); M25.572 Pain in left ankle and joints of left foot; F03.90 Unspecified dementia, unspecified severity, without behavioral disturbance, psychotic disturbance, mood disturbance, and anxiety; I50.9 Heart failure, unspecified; I25.10 Atherosclerotic heart disease of native coronary artery without angina pectoris; I11.0 Hypertensive heart disease with heart failure; E78.5 Hyperlipidemia, unspecified; F32.9 Major depressive disorder, single episode, unspecified; Z96.649 Presence of unspecified artificial hip joint; Z90.710 Acquired absence of both cervix and uterus; Z66 Do not resuscitate; W18.30XA Fall on same level, unspecified, initial encounter
CPT/HCPCS: 70450; 72125; 73610; 99284

== ENCOUNTER 2022-10-23 15:19 | Inpatient (IN) | payer MEDICARE, MEDICAID, SELFPAY ==
--- NOTE | ~2022-10-23 | CT_ITS ---
EXAMINATION: CT abdomen pelvis w con DATE: 10/23/2022 20:17 INDICATION: Epigastric pain. TECHNIQUE: Computed tomography (CT) of the abdomen and pelvis was performed with 100 cc Omnipaque 350 intravenous contrast. The dose-length product was 377.63 mGy-cm. Automated exposure control and iter ative reconstruction technique were employed. COMPARISON: CT dated 03/10/2022 FINDINGS: Lung bases are unremarkable. Heart size normal. There is advanced atherosclerosis of the ao rta. No aneurysm. There is a stent in the left external iliac artery. Small hiatal hernia. Fatty infiltration of the liver. The spleen, pancreas, adrenal glands and right kidney are unremarkable. There is a 2 mm nonobstructing left renal stone. There is diffuse abnormal thickening of the stomach, consistent with gastritis. No evidence for focal air ulceration or perforation. Nonobstructive bowel pattern. Colonic diverticulosis without evidence for diverticulitis. No lymphadenopathy. No abnormal pelvic masses or fluid collections. There is a r ight total hip arthroplasty. IMPRESSION: 1. Diffuse abnormal gastric wall thickening, suspicious for gastritis. 2: Nonobstructing left nephrolithiasis. 3: Small hiatal hernia. Reviewed, dictated and finalized at location A.
[2022-10-23 15:43] VITALS: BP 150/68; PULSE 94; RESP 16; TEMP 36.2; O2SAT 96
[2022-10-23 16:22] LABS: Basophils Absolute Auto 0.1 K/mm3 (0.0-0.1); Basophils Percent Auto 0.3 % (0.2-1.2); Eosinophils Percent Auto 0.1 % (0-4.4); Hematocrit 41.9 % (37.0-47.0); Hemoglobin 13.5 g/dL (12.0-15.0); Immature Granulocyte Absolute 0.17 K/mm3 (0.00-0.031); Immature Granulocyte Percent A 0.7 % (0-0.5); Lymphocytes Absolute Auto 1.18 K/mm3 (0.9-3.2); Lymphocytes Percent Auto 4.7 % (18.3-44.2); Mean Corpuscular HGB Conc 32.2 g/dl (32-36); Mean Corpuscular Hemoglobin 29.8 pg (26-34); Mean Corpuscular Volume 92.5 fl (80-100); Mean Platelet Volume 10.2 fl (7.4-10.4); Monocytes Absolute Auto 1.5 K/mm3 (0.1-0.6); Monocytes Percent Auto 5.9 % (2.6-8.5); Neutrophils Absolute Auto 22.3 K/mm3 (1.3-6.7); Neutrophils Percent Auto 88.3 % (45.5-73.1); Platelet Count Result 211 k/mm3 (150-375); Red Blood Count 4.53 M/mm3 (4.2-5.4); Red Cell Distribution Width 15.9 % (11.5-14.5); White Blood Count 25.3 K/mm3 (4.5-10.0)
[2022-10-23 16:27] LABS: Alanine Aminotransferase 11 U/L (6-35); Albumin Level 3.3 g/dL (3.5-5.1); Alkaline Phosphatase 72 U/L (38-126); Anion Gap 3 mmol/L (8-16); Aspartate Amino Transferase 22 U/L (14-36); Bilirubin,Total 0.7 mg/dL (0.2-1.3); Blood Urea Nitrogen 28 mg/dL (7-17); Calcium 8.3 mg/dL (8.4-10.2); Carbon Dioxide 24 mmol/L (22-30); Chloride 105 mmol/L (98-107); Estimated Glomerular Filt Rate 60; Glucose 95 mg/dL (65-110); Lipase 32 U/L (23-300); Potassium 4.4 mmol/L (3.4-5.0); Sodium 132 mmol/L (137-145)
[2022-10-23 16:44] LABS: Ovalocytes 1+ (NORMAL); Platelet Estimate Adequate (Adequate); Schistocytes None Seen (NORMAL)
[2022-10-23 18:42] VITALS: BP 162/78; PULSE 83; RESP 18; O2SAT 98
--- NOTE | 2022-10-23 19:40 | ED.ABDPAIN ---
HPI - Abdominal Pain General Chief Complaint: Abdominal Pain Stated Complaint: abd pain Time Seen by Provider: 10/23/22 18:42 History of Present Illness HPI narrative: Patient is an 82-year-old female who presents to the ER with abdominal pain. She is oriented x1 at baseline. She cannot provide any history. Not evaluated her she reports that she has some epigastric pain. Patient is in no distress with normal vital signs other than slightly elevated blood pressure. Related Data Home Medications Medication Instructions Recorded Confirmed Florastor 250 mg BYMOUTH BID 03/10/22 10/17/22 Miralax 17 g BYMOUTH DAILY 03/10/22 10/17/22 aripiprazole 5 mg tablet 5 mg PO HS 03/10/22 10/17/22 atorvastatin 40 mg tablet 40 mg PO DAILY 03/10/22 10/17/22 carvedilol 3.125 mg tablet 3.125 mg PO DAILY 03/10/22 10/17/22 clobetasol 0.05 % topical BID 03/10/22 10/17/22 clopidogrel 75 mg tablet 75 mg PO DAILY 03/10/22 10/17/22 colestipol 1 gram tablet 1 g PO QID 03/10/22 10/17/22 divalproex 250 mg tablet,delayed 500 mg PO TID 03/10/22 10/17/22 release donepezil 10 mg tablet 10 mg PO HS 03/10/22 10/17/22 nystatin 100,000 unit/gram topical 100,000 unit topical BID 03/10/22 10/17/22 ointment potassium chloride 20 mEq 20 meq PO BID 03/10/22 10/17/22 tablet,extended release(part/cryst) prednisone 10 mg tablet 30 mg PO DAILY 03/10/22 10/17/22 sertraline 50 mg tablet 50 mg PO DAILY 03/10/22 10/17/22 Allergies Allergy/AdvReac Type Severity Reaction Status Date / Time Penicillins Allergy Unknown Verified 03/21/22 09:28 Sulfa (Sulfonamide Allergy Unknown Verified 03/21/22 09:28 Antibiotics) Review of Systems Review of Systems: ROS unobtainable: Yes unobtainable due to mental status PMFSH Past Medical History Medical History CHF (congestive heart failure) Coronary artery disease Dementia Hyperlipidemia Hypertension Major depression Surgical History Surgical History History of hip replacement History of hysterectomy S/P exploratory laparotomy 03/10/2022 with lysis of adhesions [address] Castro [facility] Family History Family History Unknown No problems noted. Social History Social History Social History: she currently lives in a group home [facility]. she talks about her daughter Dora being the power banking attorney. she is and she is retired. her daughter Dora May is listed as her contact. Code status DNR Smoking status: Former smoker Alcohol intake: never Substance use: never Spiritual care concerns: No Exam Narrative: GENERAL: Well-appearing, well-nourished, and in no acute distress. HEAD: Normocephalic, atraumatic. EYES: PERRL and EOMI. ENT: Mucous membranes moist. CHEST: Clear to auscultation. No respiratory distress. HEART: Regular rate and rhythm. Normal peripheral pulses. ABDOMEN: Soft, mild epigastric tenderness, nondistended. EXTREMITIES: Normal range of motion. No edema. SKIN: Warm, dry, no rash. NEURO: Alert and oriented x1. PSYCH: Normal mood and affect. Course Course Emergency Course: Patient resting comfortably. Will be admitted to the hospital service for more significant leukocytosis with blood loss gastritis on CT scan as well as dehydration. IV Protonix ordered. Vital Signs Vital signs: Vital Signs Temperature 97.2 F L 10/23/22 15:43 Pulse Rate 94 10/23/22 15:43 Respiratory Rate 16 10/23/22 15:43 Blood Pressure 150/68 H 10/23/22 15:43 Pulse Oximetry 96 10/23/22 15:43 Oxygen Delivery Room Air 10/23/22 15:43 Temperature 97.2 F L 10/23/22 15:43 Pulse Rate 87 10/23/22 19:45 Respiratory Rate 15 10/23/22 19:45 Blood Pressure 105/93 H 10/23/22 19:45 Pulse Oximetry 96 10/23/22 19:45 Oxygen Delivery
[2022-10-23 19:45] VITALS: BP 105/93; PULSE 87; RESP 15; O2SAT 96
[2022-10-23 20:04] LABS: Influenza A QL RT-PCR Negative (Negative); Influenza B QL RT-PCR Negative (Negative); SARS-CoV-2 RNA PCR Negative
[2022-10-23 21:01] LABS: Appearance Urine Clear (Clear); Bacteria Urine None Seen /hpf; Bilirubin Urine Negative (Negative); Color Urine Yellow (Yellow); Glucose Urine UA Negative (Negative); Ketones Urine Negative (Negative); Leukocyte Esterase Ur Negative LEU/UL (Negative); Nitrate Urine Negative (Negative); Non Pathogenic Casts 0-2; Protein Urine Trace mg/dL (Negative); Squamous Epithelial Cell Urine None seen /hpf (Few); WBC Urine 0-5 /hpf
[2022-10-23 21:03] LABS: Add Urine Microscopic? YES; Specific Grav Ur 1.085 (1.001-1.035)
[2022-10-23 21:06] LABS: Lactic Acid Reflex 1.4 mmol/L (0.7-2.0)
[2022-10-23] MEDS: SODIUM CHLORIDE 0.9% IV 1,000 ML 999 ML IV CONT (21:57)
[2022-10-23] MEDS: PANTOPRAZOLE SODIUM IV 40 MG VIAL IV PUSH (21:59)
[2022-10-23] MEDS: ONDANSETRON INJ 4 MG/2 ML VIAL IV PUSH (22:04)
[2022-10-24] VITALS (8 sets, daily range): BP systolic 133–144; BP diastolic 47–80; PULSE 66–81; RESP 16–18; TEMP 36.2–37.4; O2SAT 95–97; BMI 23.1
--- NOTE | 2022-10-24 01:16 | ADMGEN ---
This patient, Betty Gutierrez, was admitted to 2 Medical Room 259-01. Patient/family oriented to hospital policies and general routines including ID bracelet, bed and alarms, visiting hours, pain management, procedures, bathroom and other care routines, personal items, smoking policy, room service/diet, and visiting hours. Information on how to activate the Rapid Response Team has been discussed. Patient/Family are encouraged to report perceived risks to care and to ask questions if they do not understand what they are told or what they should do.
[2022-10-24] MEDS: SODIUM CHLORIDE 0.9% IV 1,000 ML 125 ML IV CONT (01:56)
--- NOTE | 2022-10-24 01:58 | PC.NURSE ---
Unable to complete admission questions dt pt being poor historian and is not cooperative to answering questions. Will attempt to call daughter in the morning to obtain information.
--- NOTE | 2022-10-24 03:00 | PM.IMHP ---
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 The patient cannot give any history. She does tells me that she does not feel well. She is only oriented to name. As such the patient's history has been obtained from past medical records and ER records as well as senior care report. In the ER the patient reportedly stated that she was having abdominal pain. ER physician was able to elicit a grimace with palpation of the patient's upper abdomen. At the time of my evaluation the patient grimaced with palpation of any part of her abdomen but her abdomen exam was otherwise benign. Her abdomen was soft in she had positive bowel sounds. Review of Systems Review of Systems: ROS unobtainable: Yes unobtainable due to mental status PMFSH Past Medical History Medical History (Updated 10/24/22 @ 08:40 by Janett Petersen DO) Combined systolic and diastolic congestive heart failure Coronary artery disease Dementia With behavioral disorder GERD (gastroesophageal reflux disease) Gout Hyperlipidemia Hypertension Major depression Subarachnoid hemorrhage Vitamin B12 deficiency Surgical History Surgical History (Updated 10/24/22 @ 08:35 by Janett Petersen DO) History of hip replacement History of hysterectomy S/P exploratory laparotomy 03/10/2022 with lysis of adhesions Dr. Cardona Family History Family History Other Unknown family medical history Social History Social History (Updated 10/24/22 @ 08:37 by Janett Petersen DO) Social History: She lives in [facility]. She is and she is retired. Her daughter Dora May is listed as her contact. Code status: DNR/DNI Smoking status: Former smoker Tobacco type: cigarettes Alcohol intake: current Drinks per week: 1 Substance use: never Lack of Transportation: No Lack of Food: Never True Current Housing: I Have Housing Concerned About Future Housing: No Difficulty Paying Gas/Electric Bills: YES Difficulty Paying for Meds: No Currently Unemployed: No Education: High School Diploma/GED Difficulty w/ Childcare or Family Care: No Spiritual care concerns: No Meds Home Medications and Allergies Home Medications Medication Instructions Recorded Confirmed Type Florastor 250 mg BYMOUTH BID 03/10/22 10/17/22 History Miralax 17 g BYMOUTH DAILY 03/10/22 10/17/22 History atorvastatin 40 mg tablet 40 mg PO DAILY 03/10/22 10/17/22 History carvedilol 3.125 mg tablet 3.125 mg PO DAILY 03/10/22 10/17/22 History clopidogrel 75 mg tablet 75 mg PO DAILY 03/10/22 10/17/22 History colestipol 1 gram tablet 1 g PO QID 03/10/22 10/17/22 History divalproex 250 mg tablet,delayed 500 mg PO TID 03/10/22 10/17/22 History release donepezil 10 mg tablet 10 mg PO HS 03/10/22 10/17/22 History potassium chloride 20 mEq 20 meq PO BID 03/10/22 10/17/22 History tablet,extended release(part/cryst) prednisone 10 mg tablet 30 mg PO DAILY 03/10/22 10/17/22 History acetaminophen 500 mg tablet 500 mg PO Q6H PRN pain 10/24/22 10/24/22 History bisacodyl 10 mg rectal suppository 10 mg RECTAL HS PRN Constipation 10/24/22 10/24/22 History clotrimazole 1 % topical cream 1 applic topical BID 10/24/22 10/24/22 History colchicine 0.6 mg tablet 0.6 mg PO DAILY 10/24/22 10/24/22 History diclofenac sodium 1 % topical gel 1 ea topical DAILY 10/24/22 10/24/22 History (Voltaren Arthritis Pain) hydroxyzine HCl 25 mg tablet 25 mg PO TID 10/24/22 10/24/22 History ketoconazole 2 % topical cream 1 applic topical BID 10/24/22 10/24/22 History loteprednol etabonate 0.5 % eye 1 drp [place]
[2022-10-24 08:51] LABS: Basophils Percent Auto 0.3 % (0.2-1.2); Eosinophils Absolute Auto 0.1 K/mm3 (0-0.3); Eosinophils Percent Auto 0.7 % (0-4.4); Hematocrit 33.8 % (37.0-47.0); Hemoglobin 10.3 g/dL (12.0-15.0); Immature Granulocyte Absolute 0.08 K/mm3 (0.00-0.031); Immature Granulocyte Percent A 0.6 % (0-0.5); Lymphocytes Absolute Auto 0.91 K/mm3 (0.9-3.2); Lymphocytes Percent Auto 7.1 % (18.3-44.2); Mean Corpuscular HGB Conc 30.5 g/dl (32-36); Mean Corpuscular Hemoglobin 29.3 pg (26-34); Mean Corpuscular Volume 96.3 fl (80-100); Mean Platelet Volume 10.1 fl (7.4-10.4); Monocytes Absolute Auto 0.9 K/mm3 (0.1-0.6); Monocytes Percent Auto 6.8 % (2.6-8.5); Neutrophils Absolute Auto 10.9 K/mm3 (1.3-6.7); Neutrophils Percent Auto 84.5 % (45.5-73.1); Platelet Count Result 160 k/mm3 (150-375); Red Blood Count 3.51 M/mm3 (4.2-5.4); Red Cell Distribution Width 15.9 % (11.5-14.5); White Blood Count 12.9 K/mm3 (4.5-10.0)
[2022-10-24 09:02] LABS: Alanine Aminotransferase 10 U/L (6-35); Albumin Level 2.3 g/dL (3.5-5.1); Alkaline Phosphatase 54 U/L (38-126); Anion Gap 0 mmol/L (8-16); Aspartate Amino Transferase 20 U/L (14-36); Bilirubin,Total 0.6 mg/dL (0.2-1.3); Blood Urea Nitrogen 24 mg/dL (7-17); Calcium 7.3 mg/dL (8.4-10.2); Carbon Dioxide 25 mmol/L (22-30); Chloride 112 mmol/L (98-107); Estimated CRCL calculation 31 ml/min; Estimated Glomerular Filt Rate 60; Glucose 70 mg/dL (65-110); Potassium 4.1 mmol/L (3.4-5.0); Sodium 137 mmol/L (137-145)
[2022-10-24 09:04] LABS: Lactic Acid Reflex 0.6 mmol/L (0.7-2.0)
[2022-10-24] MEDS: DICLOFENAC SODIUM 1% 100 GM GEL (*BKC) 1 APPLIC TOPICAL (09:39)
[2022-10-24] MEDS: MICONAZOLE NITRATE 2% CREAM 30 GM TUBE 1 APPLIC TOPICAL (09:41)
[2022-10-24] MEDS: hydrOXYzine HCL 25 MG TABLET PO (09:45)
--- NOTE | 2022-10-24 17:20 | PM.IMPN ---
Progress Note: A&P Assessment and Plan (1) Gastritis: Code(s): K29.70 - Gastritis, unspecified, without bleeding Status: Acute (2) Dehydration: Code(s): E86.0 - Dehydration Status: Acute (3) Abdominal pain: Qualifiers: Abdominal location: generalized Qualified Code(s): R10.84 - Generalized abdominal pain Code(s): R10.9 - Unspecified abdominal pain Status: Acute (4) Leukocytosis: Qualifiers: Leukocytosis type: leukemoid reaction Qualified Code(s): D72.823 - Leukemoid reaction Code(s): D72.829 - Elevated white blood cell count, unspecified Status: Acute (5) Anemia: Code(s): D64.9 - Anemia, unspecified Status: Acute (6) Dementia: Qualifiers: Dementia type: unspecified type Code(s): F03.90 - Unspecified dementia, unspecified severity, without behavioral disturbance, psychotic disturbance, mood disturbance, and anxiety Status: Acute Plan The patient presented with generalized abdominal pain. CT demonstrated some evidence of gastritis that a. diffuse. Continue Protonix 40 mg IV b.i.d. patient is on clear liquid diet, however did not eat anything for breakfast or lunch. Advance diet as tolerated once patient begins eating. Patient is being hydrated with IV fluids given dehydration which was noted on presentation. Will decrease IV fluids at this time to avoid volume overload. No obvious signs of dehydration on very limited examination the patient would allow. Consider GI consultation if patient continues to complain of pain. patient marked leukocytosis on presentation which has resolved. Suspect this to be reactive. Slight decline in H&H which is likely dilutional. Continue to monitor. Patient not agreeable to communication or examination. Suspect secondary to dementia. Continue donepezil. Subjective Date/time seen: 10/24/22 17:20 Interval history: date of service: 10/24/2022 Betty Gutierrez is an 82-year-old female with a history of CHF, CAD, hypertension, hyperlipidemia, and dementia who resides in nursing care who is seen in follow-up for complaints of abdominal pain. The patient is initially pleasant upon my entering the room and introducing myself. She says hello and we exchanged readings, however when I attempted to ask her how she was feeling or what brought her into the hospital, she continued to state that it was none of your business. She did not want to discuss anything further with me because she felt that it was too personal. She did not allow me to examine her because again, she stated it was none of my business. Spoke with RN who reports patient refused all medications today. Review of Systems Review of Systems: ROS unobtainable: Yes unobtainable due to mental status Exam Narrative: Patient refused examination From standing at the bedside, the patient is thin, frail 82-year-old female who is semi recumbent in bed, appears comfortable, no acute respiratory distress, appears confused, no obvious focal neuro deficits noted. Objective Data Vital Signs Vital Signs: Vital Signs - 24 hr 10/23/22 18:42 10/23/22 19:45 10/24/22 01:11 Temperature Pulse Rate 83 87 66 Respiratory Rate 18 15 16 Blood Pressure 162/78 H 105/93 H Pulse Oximetry 98 96 96 Oxygen Delivery Room Air 10/24/22 01:19 10/24/22 02:03 10/24/22 03:53 Temperature 98.5 F 97.2 F L Pulse Rate 80 77 Respiratory Rate 18 18 Blood Pressure 140/80 140/76 Pulse Oximetry 95 96 Oxygen Delivery Room Air 10/24/22 09:38 10/24/22 09:40 10/24/22 15:05 Temperature 99.3 F Pulse Rate 75 74 81 Respiratory Rate 18 18 Blood Pressure 144/62 H 133/63 Pulse Oximetry 97 96 Oxygen Delivery Intake/Output Intake/Output: Intake & Output 10/21/22 10/22/22 10/23/22 10/24/22 23:59 23:59 23:59 23:59 Intake Total 1080 Balance 1080 Meds/Results Medications: Active Medi
[2022-10-24] MEDS: SODIUM CHLORIDE 0.9% IV 1,000 ML 50 ML IV CONT (21:00)
[2022-10-24] MEDS: PANTOPRAZOLE SODIUM IV 40 MG VIAL IV PUSH (21:48)
[2022-10-25 05:52] LABS: Hematocrit 30.2 % (37.0-47.0); Hemoglobin 9.5 g/dL (12.0-15.0); Mean Corpuscular HGB Conc 31.5 g/dl (32-36); Mean Corpuscular Hemoglobin 30.3 pg (26-34); Mean Corpuscular Volume 96.2 fl (80-100); Platelet Count Result 141 k/mm3 (150-375); Red Blood Count 3.14 M/mm3 (4.2-5.4); Red Cell Distribution Width 15.7 % (11.5-14.5)
[2022-10-25 06:11] LABS: Anion Gap 2 mmol/L (8-16); Blood Urea Nitrogen 16 mg/dL (7-17); Calcium 7.1 mg/dL (8.4-10.2); Carbon Dioxide 20 mmol/L (22-30); Chloride 113 mmol/L (98-107); Estimated CRCL calculation 34 ml/min; Estimated Glomerular Filt Rate > 60; Glucose 67 mg/dL (65-110); Sodium 135 mmol/L (137-145)
[2022-10-25] MEDS: MICONAZOLE NITRATE 2% CREAM 30 GM TUBE 1 APPLIC TOPICAL (11:23)
[2022-10-25] MEDS: PANTOPRAZOLE SODIUM IV 40 MG VIAL IV PUSH ×2 (11:33→21:51)
[2022-10-25 12:11] LABS: Glucose Point of Care 107 mg/dl (65-105)
[2022-10-25 14:00] VITALS: BP 187/90; PULSE 74; RESP 18; TEMP 37; O2SAT 94
[2022-10-25 14:25] LABS: Hematocrit 31.3 % (37.0-47.0); Hemoglobin 10.2 g/dL (12.0-15.0)
--- NOTE | 2022-10-25 14:55 | PC.NURSE ---
Notified Yudelka Garrido notified that the patients BP is 187/90. BP rechecked and it was 196/60. The provider is aware that she has been refusing her oral medications. Provider ordered to stop NS infusion and give 10 mg of IV hydralazine now.
[2022-10-25] MEDS: hydrALAZINE HCL 20 MG/ML VIAL 10 MG IV PUSH (15:26)
--- NOTE | 2022-10-25 15:43 | PM.IMPN ---
Progress Note: A&P Assessment and Plan (1) Gastritis: Code(s): K29.70 - Gastritis, unspecified, without bleeding Status: Acute Assessment and Plan: The patient presented with generalized abdominal pain. CT demonstrated some evidence of gastritis that appears diffuse. Continue Protonix 40 mg IV b.i.d. Tolerating regular diet today (2) Abdominal pain: Qualifiers: Abdominal location: generalized Qualified Code(s): R10.84 - Generalized abdominal pain Code(s): R10.9 - Unspecified abdominal pain Status: Acute Assessment and Plan: Secondary to above. Pain is improved today (3) Anemia: Code(s): D64.9 - Anemia, unspecified Status: Acute Assessment and Plan: H&H decline from presentation Initially felt to be dilutional secondary to IV fluids Further decline today to 9.5. Will check stool occult blood test to rule out GI bleeding in the setting of gastritis Discussed workup with patient's daughter including that if GI bleeding is noted, EGD may be considered and patient states that she is agreeable to this if needed. Continue to trend H&H Check iron studies (4) Dehydration: Code(s): E86.0 - Dehydration Status: Acute Assessment and Plan: Patient noted to be dehydrated on presentation Patient was appropriately rehydrated with IV fluids IV fluids discontinued at this time as patient is tolerating oral intake and BP is increasing (5) Leukocytosis: Qualifiers: Leukocytosis type: leukemoid reaction Qualified Code(s): D72.823 - Leukemoid reaction Code(s): D72.829 - Elevated white blood cell count, unspecified Status: Acute Assessment and Plan: Resolved. [place] to be reactive (6) Dementia: Qualifiers: Dementia type: unspecified type Code(s): F03.90 - Unspecified dementia, unspecified severity, without behavioral disturbance, psychotic disturbance, mood disturbance, and anxiety Status: Acute Assessment and Plan: Baseline per family Continue donepezil, however patient refusing to take all oral medications (7) Hypertension: Code(s): I10 - Essential (primary) hypertension Status: Acute Assessment and Plan: Blood pressures reviewed, increased today up to 180s systolic Patient has refused her home carvedilol P.r.n. hydralazine as needed for systolic BP >170 Subjective Date/time seen: 10/25/22 15:43 Interval history: date of service: 10/25/2022 Betty Gutierrez is an 82-year-old female with a history of CHF, CAD, hypertension, hyperlipidemia, and dementia who resides in nursing care who is seen in follow-up for complaints of abdominal pain the patient reports that she is feeling well today. She denies any pain. She is not able to provide any additional history given her dementia Spoke with RN who reports that patient still refused all medications today. Spoke with patient's daughter/POADora, via phone for 10 minutes. Patient's daughter reports that this behavior is difficult for the patient and she is very mistrust full of people she does not know due to her dementia. Discussed hospital course at length and answered all questions. Review of Systems Review of Systems: ROS unobtainable: Yes unobtainable due to mental status Exam Narrative: General: Thin, frail 82-year-old female, sitting up in bed, comfortable, NARD Neuro: awake, alert and oriented x1, speech clear, no focal neuro deficits noted, exhibits confusion HEENMT: normocephalic, atraumatic, EOMI, sclerae anicteric Respiratory: clear to auscultation bilaterally, nonlabored breathing Cardio: regular rate, regular rhythm with S1-S2 Abdomen: nondistended, soft, nontender to palpation Skin: no rashes or lesions, warm and dry Psych: appropriate mood and affect, judgment and insight poor Objective Data Vital Signs Vital Signs: Vital Signs - 24
[2022-10-25 16:01] VITALS: BP 134/79; PULSE 78; RESP 18; O2SAT 95
[2022-10-25 19:44] VITALS: BP 134/60; PULSE 81; RESP 18; TEMP 36.6; O2SAT 96
[2022-10-25] MEDS: DIVALPROEX SODIUM DR 250 MG TABEC 500 MG PO (22:02)
[2022-10-25] MEDS: DONEPEZIL HCL 10 MG TABLET PO (22:03)
[2022-10-26 03:39] VITALS: BP 159/45; PULSE 70; RESP 17; TEMP 36.6; O2SAT 95
[2022-10-26 07:58] LABS: Hematocrit 32.5 % (37.0-47.0); Hemoglobin 10.5 g/dL (12.0-15.0); Mean Corpuscular HGB Conc 32.3 g/dl (32-36); Mean Corpuscular Hemoglobin 30.1 pg (26-34); Mean Corpuscular Volume 93.1 fl (80-100); Mean Platelet Volume 9.8 fl (7.4-10.4); Platelet Count Result 156 k/mm3 (150-375); Red Blood Count 3.49 M/mm3 (4.2-5.4); Red Cell Distribution Width 15.2 % (11.5-14.5); White Blood Count 6.8 K/mm3 (4.5-10.0)
[2022-10-26 08:12] LABS: Anion Gap 1 mmol/L (8-16); Blood Urea Nitrogen 11 mg/dL (7-17); Calcium 7.3 mg/dL (8.4-10.2); Carbon Dioxide 24 mmol/L (22-30); Chloride 107 mmol/L (98-107); Estimated CRCL calculation 34 ml/min; Estimated Glomerular Filt Rate > 60; Glucose 75 mg/dL (65-110); Potassium 3.7 mmol/L (3.4-5.0); Sodium 132 mmol/L (137-145)
[2022-10-26 08:37] LABS: Iron 29 ug/dL (37-170)
[2022-10-26 08:46] LABS: Percent Iron Saturation 15 % (20-50)
[2022-10-26 09:18] LABS: Folic Acid 10.7 ng/mL (2.76->20)
[2022-10-26 10:00] VITALS: PULSE 80
[2022-10-26] MEDS: carvediloL 3.125 MG TABLET PO (10:00)
[2022-10-26] MEDS: DICLOFENAC SODIUM 1% 100 GM GEL (*BKC) 1 APPLIC TOPICAL (10:02)
[2022-10-26] MEDS: DIVALPROEX SODIUM DR 250 MG TABEC 500 MG PO (10:02)
[2022-10-26] MEDS: POTASSIUM CHLORIDE 20 MEQ TABLET.ER PO (10:03)
[2022-10-26] MEDS: PANTOPRAZOLE SODIUM IV 40 MG VIAL IV PUSH (10:03)
[2022-10-26] MEDS: MICONAZOLE NITRATE 2% CREAM 30 GM TUBE 1 APPLIC TOPICAL (10:03)
[2022-10-26] MEDS: CLOPIDOGREL BISULFATE 75 MG TABLET PO (10:14)
--- NOTE | 2022-10-26 12:00 | PM.DS ---
DS: Admitting Diagnosis Discharge Date 10/26/22 Admitting Diagnosis Abdominal pain DS: Discharge Diagnosis Discharge Diagnosis (1) Gastritis: Code(s): K29.70 - Gastritis, unspecified, without bleeding Status: Acute Assessment and Plan: The patient presented with generalized abdominal pain. CT demonstrated some evidence of gastritis that appears diffuse. Received IV Protonix Diet was advanced Abdominal pain resolved Continue p.o. Protonix 40 mg daily (2) Abdominal pain: Qualifiers: Abdominal location: generalized Qualified Code(s): R10.84 - Generalized abdominal pain Code(s): R10.9 - Unspecified abdominal pain Status: Acute Assessment and Plan: Secondary to above. Pain resolved (3) Anemia: Code(s): D64.9 - Anemia, unspecified Status: Acute Assessment and Plan: H&H with decline from presentation Initially felt to be dilutional secondary to IV fluids No evidence active GI bleeding. Patient did not have dark stools. Stool occult blood test was ordered, however sample was not able to be obtained. Hemoglobin and hematocrit improved and GI bleeding felt to be unlikely Iron studies reviewed in consistent with anemia of chronic disease B12 levels on the low end of normal and patient was started on cyanocobalamin 1000 mcg daily (4) Dehydration: Code(s): E86.0 - Dehydration Status: Acute Assessment and Plan: Patient noted to be dehydrated on presentation Patient was appropriately rehydrated with IV fluids Encouraged appropriate p.o. intake (5) Leukocytosis: Qualifiers: Leukocytosis type: leukemoid reaction Qualified Code(s): D72.823 - Leukemoid reaction Code(s): D72.829 - Elevated white blood cell count, unspecified Status: Acute Assessment and Plan: Resolved. [place] to be reactive (6) Dementia: Qualifiers: Dementia type: unspecified type Code(s): F03.90 - Unspecified dementia, unspecified severity, without behavioral disturbance, psychotic disturbance, mood disturbance, and anxiety Status: Acute Assessment and Plan: At baseline per family Continue donepezil, however patient refused to take all oral medications during admission (7) Hypertension: Code(s): I10 - Essential (primary) hypertension Status: Acute Assessment and Plan: Blood pressures reviewed and were generally stable Patient did have 1 elevated blood pressure rating, likely due to not taking her carvedilol. IV hydralazine given and subsequent blood pressures stable Continue home carvedilol DS: Summary Hospital Course Hospital Course: Date of admission: 10/23/2022 Date of discharge: 10/26/2022 Betty Gutierrez is an 82-year-old female with a history of CHF, CAD, hypertension, hyperlipidemia, and dementia who resides in nursing care who presented to the emergency department on 10/23/2022 with complaints of abdominal pain. On presentation to the ED, her vital signs were stable, she was afebrile, WBC 25.3, additional laboratory workup unremarkable, CT of abdomen/pelvis revealed diffuse abnormal gastric wall thickening suspicious for gastritis. She was admitted to the hospitalist service for further evaluation and management. Please see above for further details. Her symptoms improved. She was able to tolerate her diet. She will continue Protonix as an outpatient. H&H remained stable. Patient was at her baseline and was determined to no longer require inpatient care. Discussed with the patient daughter/POA via phone to provide updates answer all questions. Daughter agreeable with discharge plans. Patient discharged in hemodynamically stable condition on 10/26/2022. Time Spent with Patient Time attestation: Total time spent providing and/or coordinating discharge services: 40 minutes Time spent: Greater than 30 minutes Exam Narrative: Gene
[2022-10-26 14:00] VITALS: BP 126/75; PULSE 76; RESP 18; TEMP 36.9; O2SAT 96
== END 2022-10-26 16:48 | DRG 392 ==
LOC: ANHED 21:48 → ANH2MED 23:11
PROVIDERS: Emergency Medicine; Admitting Provider Internal Medicine; Emergency Provider Emergency Medicine; PCP Family Medicine; Visit Provider Physician Assistant
DX: K29.70 Gastritis, unspecified, without bleeding (principal); I50.42 Chronic combined systolic (congestive) and diastolic (congestive) heart failure; D64.9 Anemia, unspecified; E86.0 Dehydration; D72.823 Leukemoid reaction; F03.90 Unspecified dementia, unspecified severity, without behavioral disturbance, psychotic disturbance, mood disturbance, and anxiety; I50.9 Heart failure, unspecified; I11.0 Hypertensive heart disease with heart failure; Z66 Do not resuscitate; Z20.822 Contact with and (suspected) exposure to COVID-19; Z88.0 Allergy status to penicillin; Z88.2 Allergy status to sulfonamides
CPT/HCPCS: 36415; 74177; 80048; 80053; 81001; 82607; 82728; 82746; 82948; 83540; 83550; 83605; 83690; 85014; 85018; 85025; 85027; 87040; 87636; 96361; 96374; 96375; 99285; A9270; C9113; G0378; J0360; J2405; J7030; J7512; Q9967

== ENCOUNTER 2023-07-17 05:49 | Emergency (ER) | payer MEDICARE, MEDICAID, SELFPAY ==
--- NOTE | ~2023-07-17 | XR_ITS ---
XR hip LT 2V w AP pelvis 07/17/2023 07:53 Indication: Left hip pain Procedure: AP pelvis and 2 views left hip Comparison: CT dated 10/23/2022 Findings: There is moderate osteoarthritis of the left hip. There is right bipolar hemiarthroplasty. There is a vascular stent in the left common iliac artery. Nonspecific bowel gas pattern. Impression: 1: Moderate osteoarthritis of the left hip. Reviewed, dictated and finalized at location B. OR ELECTRONICS ENGINEER Impression: 1: Moderate osteoarthritis of the left hip.
--- NOTE | ~2023-07-17 | CT_ITS ---
EXAMINATION: CT lumbar spine wo con DATE: 07/17/2023 07:48 INDICATION: Back pain TECHNIQUE: Computed tomography (CT) of the lumbar spine was performed without intravenous contrast. Toribio he dose-length product was 1166.13 mGy-cm. Automated exposure control and iterative reconstruction te melbaque were employed. COMPARISON: CT dated 10/23/2022 FINDINGS: There is an acute/subacute superior endplate compression fracture of L2 with approximately 10% loss of vertebral body height. No significant associated spinal stenosis. There is disc narrowing at L5-S1. There is atherosclerosis and ectasia of the aorta. Partially visualized right hip arthropl asty. Mild dextrocurvature of the lumbar spine. Lung bases are unremarkable. There is a left common/e xternal iliac artery stent. There is ectasia of the aorta measuring up to 2.9 cm. There are cholecyst ectomy clips. IMPRESSION: 1. Acute/subacute superior endplate compression fracture of L2 with approximately 10% loss of vertebr al body height. 2: Mild lumbar spondylosis for age. Reviewed, dictated and finalized at location B. HER OPERATOR IMPRESSION: 1. Acute/subacute superior endplate compression fracture of L2 with approximate ly 10% loss of vertebral body height. 2: Mild lumbar spondylosis for age.
[2023-07-17 05:51] VITALS: BP 199/83; PULSE 65; RESP 14; TEMP 36.3; O2SAT 96
[2023-07-17 05:57] VITALS: BP 199/83; PULSE 67; TEMP 36.3; O2SAT 93
--- NOTE | 2023-07-17 07:36 | ED.GENADULT ---
HPI - General Adult General Chief complaint: Unspecified Stated complaint: PAIN ALL OVER Time Seen by Provider: 07/17/23 05:56 History of Present Illness HPI narrative: 83-year-old female with history is Alzheimer's presented to ED for evaluation of back and left hip pain. Patient was found in her room and she was complaining of increased pain. Patient denies any falls or injuries. Patient does complain of low back pain and left hip pain. Related Data Home Medications Medication Instructions Recorded Confirmed Florastor 250 mg BYMOUTH BID 03/10/22 06/25/23 Miralax 17 g BYMOUTH DAILY PRN Constipation 03/10/22 06/25/23 atorvastatin 40 mg tablet 40 mg PO DAILY 03/10/22 06/25/23 carvedilol 3.125 mg tablet 3.125 mg PO DAILY 03/10/22 06/25/23 clopidogrel 75 mg tablet 75 mg PO DAILY 03/10/22 06/25/23 colestipol 1 gram tablet 1 g PO QID 03/10/22 06/25/23 divalproex 250 mg tablet,delayed 500 mg PO BID 03/10/22 06/25/23 release (Depakote) donepezil 10 mg tablet 10 mg PO HS 03/10/22 06/25/23 potassium chloride 20 mEq 20 meq PO BID 03/10/22 06/25/23 tablet,extended release(part/cryst) prednisone 10 mg tablet 10 mg PO DAILY 03/10/22 06/25/23 acetaminophen 500 mg tablet 500 mg PO Q6H PRN pain 10/24/22 06/25/23 bisacodyl 10 mg rectal suppository 10 mg RECTAL HS PRN Constipation 10/24/22 06/25/23 clotrimazole 1 % topical cream 1 applic topical BID 10/24/22 06/25/23 colchicine 0.6 mg tablet 0.6 mg PO DAILY 10/24/22 06/25/23 diclofenac sodium 1 % topical gel 1 ea topical DAILY 10/24/22 06/25/23 (Voltaren Arthritis Pain) hydroxyzine HCl 25 mg tablet 25 mg PO TID 10/24/22 06/25/23 ketoconazole 2 % topical cream 1 applic topical BID 10/24/22 06/25/23 loteprednol etabonate 0.5 % eye 1 drp RIGHT EYE BID PRN Dry Eye(S) 10/24/22 06/25/23 drops,suspension (Lotemax) megestrol 625 mg/5 mL (125 mg/mL) 5 ml PO DAILY 10/24/22 06/25/23 oral suspension Allergies Allergy/AdvReac Type Severity Reaction Status Date / Time Penicillins Allergy Unknown Verified 03/21/22 09:28 Sulfa (Sulfonamide Allergy Unknown Verified 03/21/22 09:28 Antibiotics) Review of Systems Review of Systems: All systems reviewed & are unremarkable except as noted in HPI and below PMFSH Past Medical History Medical History (Updated 07/17/23 @ 09:16 by Ozzy Niño MD) Combined systolic and diastolic congestive heart failure Coronary artery disease Dementia With behavioral disorder GERD (gastroesophageal reflux disease) Gout Hyperlipidemia Hypertension Major depression Subarachnoid hemorrhage Vitamin B12 deficiency Surgical History Surgical History (Updated 10/24/22 @ 08:35 by Janett Petersen DO) History of hip replacement History of hysterectomy S/P exploratory laparotomy 03/10/2022 with lysis of adhesions Dr. Cardona Family History Family History Other Unknown family medical history Social History Social History (Updated 10/24/22 @ 08:37 by Janett Petersen DO) Social History: She lives in [facility]. She is and she is retired. Her daughter Dora May is listed as her contact. Code status: DNR/DNI Smoking status: Former smoker Tobacco type: cigarettes Alcohol intake: current Drinks per week: 1 Substance use: never Lack of Transportation: No Lack of Food: Never True Current Housing: I Have Housing Concerned About Future Housing: No Difficulty Paying Gas/Electric Bills: YES Difficulty Paying for Meds: No Currently Unemployed: No Education: High School Diploma/GED Difficulty w/ Childcare or Family Care: No Spiritual care concerns: No Exam Narrative: APPEARANCE: Well appearing, no pain, no distress, well-nourished. HEAD: normocephalic, atraumatic. EYES: PERRLA/EOMI, conjunctivae clear. NOSE: Normal no drainage EARS:TMS clear with good light reflex. THROAT: Pharynx clear, no exud
[2023-07-17 09:25] VITALS: BP 176/82; PULSE 68; RESP 18; O2SAT 94
== END 2023-07-17 12:01 ==
PROVIDERS: Emergency Provider Emergency Medicine; PCP Family Medicine
DX: M48.56XA Collapsed vertebra, not elsewhere classified, lumbar region, initial encounter for fracture (principal); G30.9 Alzheimer's disease, unspecified; F02.80 Dementia in other diseases classified elsewhere, unspecified severity, without behavioral disturbance, psychotic disturbance, mood disturbance, and anxiety; K21.9 Gastro-esophageal reflux disease without esophagitis; I11.0 Hypertensive heart disease with heart failure; I50.40 Unspecified combined systolic (congestive) and diastolic (congestive) heart failure; I25.10 Atherosclerotic heart disease of native coronary artery without angina pectoris; E78.5 Hyperlipidemia, unspecified; E53.8 Deficiency of other specified B group vitamins; Z96.641 Presence of right artificial hip joint; M16.12 Unilateral primary osteoarthritis, left hip; M47.816 Spondylosis without myelopathy or radiculopathy, lumbar region; Z90.710 Acquired absence of both cervix and uterus
CPT/HCPCS: 72131; 73502; 99284

== ENCOUNTER 2024-11-05 13:54 | Emergency (ER) | payer OTHER, MEDICARE, MEDICAID, SELFPAY ==
[2024-11-05] VITALS (20 sets, daily range): BP systolic 85–119; BP diastolic 40–103; PULSE 58–110; RESP 16–34; TEMP 36.6; O2SAT 50–100
--- NOTE | ~2024-11-05 | CT_ITS ---
History: Syncope and possible seizures PROCEDURE: CT head without contrast. COMPARISON: 06/30/2022 TECHNIQUE: Axial imaging of the head performed from the skull base to the vertex without IV contrast. Sagittal a nd coronal reformations obtained. DLP: 605 mGy-cm FINDINGS: The ventricles are enlarged. The dilatation of the ventricles is proportional to the degree of sulcal prominence, not uncommon in the senescent brain. Decreased attenuation is identified within the periventricular white matter, likely secondary to micr ovascular ischemic disease, in a patient of this age. There is no mass, mass effect or midline shift. There is no abnormal extra-axial fluid collection or intracranial hemorrhage. Visualized paranasal sinuses are clear. The mastoid air cells are well aerated. No acute displaced fractures within the overlying cranium. Impression: No acute intracranial hemorrhage or suspicious mass effect. Reviewed, dictated and finalized at location A. Impression: No acute intracranial hemorrhage or suspicious mass effect.
--- NOTE | ~2024-11-05 | CT_ITS ---
EXAMINATION: CTA chest PE abdomen pel DATE: 11/05/2024 18:49 CDT INDICATION: Syncope with positive d-dimer TECHNIQUE: Computed tomographic angiography (CTA) of the chest was performed, along with multiple con tiguous axial images of the abdomen and pelvis with 100 mL Omnipaque-350 intravenous contrast. The do se-length product was 733.09 mGy-cm. Maximum intensity projection 3D-reconstructions of the aorta and other arteries were constructed by the technologist on a separate workstation. FINDINGS/OBSERVATIONS: PULMONARY ARTERIES: No filling defect is identified within the main or proximal pulmonary artery. The main pulmonary artery is not enlarged. THORACIC AORTA: No aneurysmal dilatation or dissection is present. The great vessels are intact LUNGS: Interstitial thickening is detected bilaterally with cylindrical bronchiectasis. Further pia cterization is limited secondary to respiratory motion artifact. MEDIASTINUM: No morphologically suspicious or pathologically enlarged lymph nodes are identified with in the mediastinum or bilateral axilla. BONES OF THE CHEST: No acute fracture. No significant degenerative disease. No lytic or blastic lesions. HEART: The heart is enlarged, without pericardial effusion. Significant calcification of the aortic a nd mitral valves are identified. LIVER: The liver enhances homogeneously and is not enlarged. GALLBLADDER AND BILIARY SYSTEM: The gallbladder is surgically absent. PANCREAS: The pancreas enhances homogeneously without ductal dilatation. SPLEEN: The spleen enhances homogeneously and is not enlarged. KIDNEYS: The bilateral kidneys enhance symmetrically without hydronephrosis or renal calculi. ADRENAL GLANDS: Unremarkable. GASTROINTESTINAL TRACT: Colonic diverticulosis without surrounding inflammatory change. APPENDIX: The appendix is not definitively visualized. However, no pericecal inflammatory change is identified suggest the presence of acute appendicitis. VASCULATURE: Densely calcified atherosclerotic disease. LYMPH NODES: No pathologically enlarged or morphologically suspicious lymph nodes within the retroperitoneum or at the root of the mesentery. PELVIC STRUCTURES: The bladder is only minimally distended, and otherwise unremarkable. The uterus is either surgically absent or markedly atrophic BODY WALL AND MUSCULOSKELETAL: Significant degenerative disease within the lumbosacral spine with osteophyte formation, disc space n arrowing, endplate changes and vacuum phenomena. IMPRESSION: No acute pathology detected within the chest, abdomen or pelvis, as detailed above. No pulmonary embolus. No aortic dissection. Reviewed, dictated and finalized at location A. IMPRESSION: No acute pathology detected within the chest, abdomen or pelvis, as detailed ab ove. No pulmonary embolus. No aortic dissection.
--- NOTE | ~2024-11-05 | XR_ITS ---
CHEST RADIOGRAPH CLINICAL HISTORY: ams syncope . COMPARISON: 02/01/2022 TECHNIQUE: Single portable view of the chest. FINDINGS The cardiomediastinal silhouette is enlarged (secondary to positioning and technique). The lungs are clear. IMPRESSION: No focal infiltrate or effusion. Reviewed, dictated and finalized at location A.
--- NOTE | 2024-11-05 13:57 | ECG_ITS ---
Test Date: 2024-11-05 14:03:05 Measurements Intervals [place] Rate: 58 P: 80 ND: 213 QRS: 15 QRSD: 83 T: 175 QT: 422 QTc: 415 Interpretive Statements SINUS BRADYCARDIA WITH FIRST DEGREE AV BLOCK LEFT VENTRICULAR HYPERTROPHY AND ST-T CHANGE [VOLTAGE CRITERIA PLUS ST/T ABNORMALITY] VERSUS ISCHEMIA ABNORMAL ECG No previous ECG available for comparison Electronically Signed On 11-05-2024 15:44:14 CDT by Francisco Nath M.D.
--- OUTSIDE RECORDS SUMMARY | 2024-11-05 14:03 | XMS_ITS | Encounter Summary ---
Author Organization [facility] Address [facility] [place] [address] Care Team Providers Care Director Telehealth Name Role Phone Brooke Holman Primary Care Provider [phone] Emily Montoya RN Unavailable [phone] Cailin Thompson MD Primary Care Provider [phone] Encounter Details Date Type Department Care Team (Late st Contact Info) Description 06/20/2021 [facility] Message Enc [facility] Family & Internal Medicine [facility] [id number] [place] [id number] [place] [address] [place] [address] RE: Other Social History Tobacco Use Types Packs/Day Years Used Date Smoking Tobacco: Former Cigarettes 3 30 Smokeless Tobacco: Never Alcohol Use Standard Drinks/Week Comments Yes 0 (1 standard drink = 0.6 oz pur e alcohol) pt denies drinking AUDIT-C Answer Date Recorded Frequency of Alcohol Consumption 4 or more times a week 10/15/2018 Average Number of Drinks 1 or 2 019 Frequency of Binge Drinking Never 03/2019 PHQ-2 Answer Date Recorded PHQ-2 Score - If the patient scores above 3, please move on to questions 3-9 0 01/01/2021 Comments No Sex and Gender Information Value Date Recorded Sex Assigned at Female 07/20/2018 2:29 PM SILK OPENER Legal Sex Female 9:40 PM CDT Gender Identity Female 07/20/2018 2:29 PM SILK OPENER Sexual Orientation Straight 07/20/2018 2: 29 PM SILK OPENER COVID-19 Exposure Response Date Recorded In the last month, have you been in contact with someone who was confirmed or suspected to have Coronavirus / COVID-19? No / Unsure 06/23/2021 8:11 PM SILK OPENER documented as of this encounter Functional Status * RETIRED Are you deaf or do you have serious difficulty hearing Answer Date of Assessment Author Status No 06/30/2019 10:47 AM SILK OPENER Acti ve * RETIRED Are you blind or do you have serious difficulty seeing, even when wearing glasses? Answer Date of Assessment Author Status No 06/30/2019 10:47 AM SILK OPENER Acti ve * Do you have serious difficulty walking or climbing stairs? Answer Date of Assessment Author Status No 06/29/2019 4:31 AM SILK OPENER Kimberly Vidales RN Active * Do you have difficulty dressing or bathing? Answer Date of Assessment Author Status No 06/30/2019 10:47 AM SILK OPENER Renata Elias RN Active * Because of a physical, mental, or emotional condition, do you have difficulty doing errands alone such as visiting a doctor's office or shopping? Answer Date of Assessment Author Status No 06/30/2019 10:47 AM SILK OPENER eRnata Elias RN Active documented as of this encounter Mental Status * Because of a physical, mental, or emotional condition, do you have serious difficulty concentrating, remembering, or making decisions? Answer Entry Date Author Status No 06/30/2019 10:47 AM Renata Marcial RN Active documented in this encounter Plan of Treatment Not on file documented as of this encounter Visit Diagnoses Not on filedocumented in this encounter Additional Health Concerns Infection Onset Date Last Indicated Resolved Time COVID-19 Rule Out 06/24/2021 06/24/2021 06/25/2021 2:13 PM SILK OPENER COVID-19 Rule Out 06/25/2021 06/25/2021 06/26/2021 10:53 AM SILK OPENER documented as of this encounter Care Teams Director Telehealth Relationship Specialty [place] [address] [place] [address] PCP - General PHYSICIAN MACHINE ASSISTANT 07/04/20 07/01/21 Cailin Thompson MD [address] [facility] [address] [place] [address] PCP - General FAMILY PRACTICE 07/02/21 Emily Montoya, RN [address] [place] [address] Fountain Helper (Ambulatory) REGISTERED NURSE 06/25/21 07/02/21 documented as of this encounter
--- OUTSIDE RECORDS SUMMARY | 2024-11-05 14:03 | XMS_ITS | Clinical Summary ---
Author Organization [facility] Address [address] [place] [address] Care Team Providers Care Volunteer Patient Representative Name Role Phone Cailin Thompson MD Primary Care Provider [phone] Allergies Active Allergy Reactions Criticality Noted Date Comments Penicillins Unknown,Rash Medium 10/07/2017 Sulfa Antibiotics Anaphylaxis High 02/12/2021 Medications loteprednol (LOTEMAX) 0.5 % ophthalmic suspensionIndica tions:Psoriasis [The details of the medication are not available because there are pending changes by a home health clinician.] 5 mL 9 Active Additional Information Patient taking differently:1 drop Right Eye 2 times daily PRN,Indications: Eye Irritation, Reported on 07/15/2019 donepezil 10 MG TabIndications:D ementia with behavioral disturbance, unspecified dementia type (CMS/HCC) Take 1 tablet (10 mg total) by mouth daily. 90 tablet 1 Active KLOR-CON M20 20 MEQ tabletIndication s:Hypokalemia TAKE 1 TABLET BY MOUTH EVERY DAY 90 tablet 1 Active SERTRALINE 50 MG tabletIndication s:Depression TAKE 1 TABLET BY MOUTH EVERY DAY 90 tablet 1 1 Active ATORVASTATIN 40 MG tabletIndication s:Hyperlipidemia TAKE 1 TABLET BY MOUTH EVERY DAY 90 tablet 1 1 Active CLOPIDOGREL 75 MG tabletIndication s:Congestive heart failure, unspecified HF chronicity, unspecified heart failure type (CMS/HCC HHS/HCC) TAKE 1 TABLET BY MOUTH EVERY DAY 90 tablet 1 1 Active saccharomyces boulardii (FLORASTOR) 250 MG capsule Take 250 mg by mouth 2 (two) times daily. 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): Added automatically from request for surgery [id number] Mass of left parotid gland 12/13/2020 Neoplasm of uncertain behavior of parotid gland 11/14/2020 Hypothermia 06/29/2019 Rectal bleeding 12/07/2018 Hypokalemia 07/27/2018 Hypomagnesemia 07/21/2018 Alcohol-induced chronic pancreatitis (HCC) 07/20 Psoriasis 07/20/2018 Hypertension 04/24/2018 Psoriasis, unspecified 04/23/2018 Knee pain, bilateral 10/21/2017 Alcoholism, chronic ([facility]) 10/07/2017 Congestive heart failure ([facility]) 10/07 Dementia 10/07/2017 Assessment & Plan (07/06/2019 10:24 AM GRAB HOOKER): Only scored 10 on SLUMS. She became very defensive when we discussed her dementia and that is likely progressing due to her drinking. She denies any issues with drinking. She also reported that she is driving. I advised her that the should not be driving due to her dementia and drinking. She would like a 2nd opinion about her memory so I gave her daughter number to memory clinic and senior renewal Depression 10/07/2017 GERD (gastroesophageal reflux disease) 8 Hyperlipidemia 10/07/2017 Memory impairment 10/07/2017 Vaginal dryness 10/07/2017 Immunizations Name Administration Dates Next Due Afluria 36 MONTHS+ (Prefille d Syringe IIV4) 06/30/2019(Deferred: Patient/family declined - Per Yudy Drummond and Maite Isbell) Flucelvax 2 YRS+ (Multi-Dose Vial) 05/25/2019 Fluzone High Dose - >Age 65 (Prefilled Syringe) 07/11/2020 MODERNA COVID-19 (12+) MRNA, LNP-S, PF, 100 MCG/ 0.5 ML DOSE 12/18/2020,11/13/2020 Tdap (Adacel) 02/12/2021,06/29/2019 Tdap (Generic) 06/29/2019 Family History Medical History Relation Comments unknow Father Heart Disease Mother None Mother Diabetes Sister Relation Status Comments Father Mother Sister Social History Tobacco Use Types Packs/Day Years Used Date Smoking Tobacco: Former Cigarettes 3 30 Smokeless Tobacco: Never Tobacco Cessation:Counseling Given: No Alcohol Use Standard Drinks/Week Comments Yes 0 [...] Sex Assigned at Female 07/20/2018 2:29 PM GRAB HOOKER Legal Sex Female 9:40 PM CDT Gender Identity Female 07/20/2018 2:29 PM GRAB HOOKER Sexual Orientation Straight 07/20/2018 2: 29 PM GRAB HOOKER Last Filed Vital Signs Vital Sign Reading Time Taken Comments Blood Pressure 122/43 06/28/2021 8:32 AM GRAB HOOKER Pulse 74 06/28/2021 8:32 AM GRAB HOOKER Temperature 36.7 C (98.1 F) 06/28/2021 8:32 AM GRAB HOOKER Respiratory Rate 18 06/28/2021 8:32 AM GRAB HOOKER Oxygen Saturation 93% 06/28/2021 8:32 AM GRAB HOOKER Inhaled Oxygen Concentration - - Weight 55.3 kg (121 lb 14.6 oz) 06/28/2021 5:00 AM GRAB HOOKER Height 160 cm (5' 3 ) 06/24/2021 11:05 AM GRAB HOOKER Body Mass Index 21.6 06/24/2021 11:05 AM GRAB HOOKER Plan of Treatment Health Maintenance Due Date Last Done Comments Pneumococcal Vaccine: 65+ Years (1 of 2 - PCV) 1947 Zoster Vaccines (1 of 2) 1991 Annual Medicare Wellness Visit 2006 Dexa Scan (General) 2006 RSV Immunization or 60+ Years (1 - 1-dose 75+ series) 01/11/2016 COVID-19 Vaccine (3 - 2023-2 5 season) 2024 12/18/2020, 11/13/2020 DTaP, Tdap and Td Vaccines ( 4 - Td or Tdap) 02/12/2031 02/12/2021, 06/29/2019, 06/29/2019 Meningococcal B Vaccine Aged Out No l onger eligible based on patient's age to complete this topic Meningococcal Vaccine Aged Out No berkley tete eligible based on patient's age to complete this topic RSV Immunizations Under 20 Months Aged Out No longer eligible b ased on patient's age to complete this topic Insurance MEDICARE MEDICAID [facility] Advance Directives * Full Code (Latest Code Status on File) Date Activated Date Inactivated Comments 06/24/2021 12:10 PM 06/28/2021 3:38 PM * Full Code Date Activated Date Inactivated Comments 06/29/2019 9:47 AM 06/30/2019 4:42 PM Care Teams Volunteer Patient Representative Relationship Specialty Start Date End Date Cailin Thompson MD [address] [facility] [address] [place] [address] PCP - General FAMILY PRACTICE 07/02/21
--- OUTSIDE RECORDS SUMMARY | 2024-11-05 14:03 | XMS_ITS | Clinical Summary ---
Author Organization [facility] Address [address] [facility] [place] [address] Care Team Providers Care Textile Dyer Name Role Phone Unavailable Primary Care Provider Unavailabl e Source Comments [facility],non-owned Affiliates and Associated Physician Practices is amultiple site organization consisting of ambulatory clinics and hospital sitesin [place], [place], [place] and [place]. This disclosure is being madepursuant to the Care Everywhere program and may not contain all information available regarding this patient. Last updated 18.[facility] Allergies Active Allergy Reactions Criticality Noted Date Comments Penicillins Rash,Unknown Medium 10/07/2017 Sulfa Drugs Anaphylaxis High 02/12/2021 Medications * Be aware that medications may not be up to date on this document. Alwaysverify current medications with the patient. Medication Sig Dispensed Refills Start Date End Date Status ascorbic acid (VITAMIN C) 500 MG tablet Take 1,000 mg by mouth once daily Active atorvastatin (LIPITOR) 40 MG tablet Take 40 mg by mouth at bedtime Active Coenzyme Q10 100 MG tablet Take 100 mg by mouth once daily Active donepezil (ARICEPT) 10 MG tablet Take 10 mg by mouth once daily Active folic acid (FOLVITE) 1 MG tablet Take 1 mg by mouth once daily Active furosemide (LASIX) 20 MG tablet Take 20 mg by mouth once daily Active pantoprazole EC (PROTONIX) 40 MG tablet Take 40 mg by mouth once daily Active sertraline (ZOLOFT) 50 MG tablet Take 50 mg by mouth once daily Active Multiple Vitamins-Minerals ([facility] SPECTRAVITE ADULT 50+ PO) Take 1 tablet by mouth once daily Active thiamine (VITAMIN B-1) 100 MG tablet Take 100 mg by mouth once daily Active melatonin 3 MG tablet Take 1 (one) tablet by mouth nightly as needed for Insomnia 30 tablet 02/23/2021 Active clopidogrel (PLAVIX) 75 MG tablet TAKE 1 TABLET BY MOUTH EVERY DAY 03/19/2021 Active levoFLOXacin (LEVAQUIN) 500 MG tablet Take 500 mg by mouth once daily Active KLOR-CON M20 20 MEQ tablet 02/06/2021 Active saccharomyces (FLORASTOR EXTRA STR) 250 MG capsule Take 250 mg by mouth 2 times daily Active carvedilol (COREG) 3.125 MG tablet TAKE 1 TABLET BY MOUTH EVERY DAY 12/09/2020 Active Active Problems Problem Noted Date Diagnosed Date SAH (subarachnoid hemorrhage) 02/12/2021 Aortic valve stenosis Closed fracture of neck of right femur Social History Tobacco Use Types Packs/Day Years Used Date Smoking Tobacco: Never Smokeless Tobacco: Never Alcohol Use Standard Drinks/Week Comments Never 0 (1 standard drink = 0.6 oz pur e alcohol) Sex and Gender Information Value Date Recorded Sex Assigned at Not on file Gender Identity Not on file Sexual Orientation Not on file Last Filed Vital Signs Vital Sign Reading Time Taken Comments Blood Pressure 149/72 04/09/2021 9:36 AM CDT Pulse 56 04/09/2021 9:36 AM CDT Temperature 36.7 C (98.1 F) 02/23/2021 3:50 AM CDT Respiratory Rate 17 02/22/2021 8:03 PM CDT Oxygen Saturation 93% 04/09/2021 9:36 AM CDT Inhaled Oxygen Concentration 100% 02/19/2021 4 :51 PM CDT Weight 65.8 kg (145 lb) 04/09/2021 9:36 AM CDT Height 160 cm (5' 3 ) 04/09/2021 9:36 AM CDT Body Mass Index 25.69 04/09/2021 9:36 AM CDT Plan of Treatment Health Maintenance Due Date Last Done Comments BONE DENSITY TESTING 1940 MEDICARE AWV 12 MONTHS 1940 DTAP/TDAP/TD VACCINES (1 - Tdap) 01/11/1960 PNEUMOCOCCAL VACCINE 50+ (1 of 1 - PCV) 1991 ZOSTER VACCINE (1 of 2) 1991 Respiratory Syncytial Virus (RSV) Vaccine Pt: or over 60 yrs (1 - 1-dose 75+ series) 01/11/2016 COVID-19 VACCINE (3 - 2023-2 5 season) 2024 12/18/2020, 11/13/2020 INFLUENZA VACCINE (#1) 2024 05/25/2019 DEPRESSION SCREENING 08/10/2024 HEPATITIS B VACCINE Aged Out No longe r eligible based on patient's age to complete this topic HIB VACCINE Aged Out No longer eligi ble based on patient's age to complete this topic HPV VACCINE Aged Out No longer eligi ble based on patient's age to complete this topic MENINGOCOCCAL (Group B) VACCINE SHARED DECISION-MAKING Aged Out No longer eligible based on patient's age to complete this topic MENINGOCOCCAL GROUPS A/C/Y/W VACCINE Aged Out No longer eligible b ased on patient's age to complete this topic Medical Devices Implanted Type Area Rail Car Unloader Device Identifier Shelf Expiration Date Model / Serial / Lot Medacta Bipolar Head - 44mm, Head 28mm Implanted:Qty: 1 on 02/15/2021 by Connor Jorge MD at [facility] Right: Hip Medacta 11/08/2024 [id number] / / [id number] Description:apart of total Medacta Stem - Size 2 Standard, Cementless Implanted:Qty: 1 on 02/15/2021 by Connor Jorge MD at [facility] Right: Hip Medacta 02/08/2025 [id number] / / [id number] Description:apart of total Medacta Femoral Head - M, 28mm, 0 Offset Implanted:Qty: 1 on 02/15/2021 by Connor Jorge MD at [facility] Right: Hip 10/07/2025 [id number] / / [id number] Description:apart of total Hip Replacement Bipolar Implanted:Qty: 1 on 02/15/2021 by Connor Jorge MD at [facility] Right: Hip [id number] / / Insurance Payer Benefit Plan / Group Subscriber ID Effective Dates Phone Address Type MEDICARE WPS MEDICARE PART B [id number] 02/07/2011-Pres ent [address] [address] [place] [address] Medicare MEDICARE WPS MEDICARE PART B [id number] 02/07/2011-Pres ent [address] [address] [place] [address] Medicare MEDICARE WPS MEDICARE PART B [id number] 02/07/2011-Pres ent [address] [address] [place] [address] Medicare MEDICARE WPS MEDICARE PART B [id number] 02/07/2011-Pres ent [address] [address] [place] [address] Medicare MEDICARE WPS MEDICARE PART B [id number] 02/07/2011-Pres ent [address] [address] [place] [address] Medicare MEDICAID - OUT OF [facility] MEDICAID - [place] PUBLIC AID [id number] Effective for all dates [address] [address] [place] [address] Medicaid MEDICARE WPS MEDICARE PART B [id number] 02/07/2011-Pres ent [address] [address] [place] [address] Medicare MEDICAID - OUT OF [facility] MEDICAID - [place] [id number] Effective for all dates [address] [address] [place] [address] Medicaid MEDICARE WPS MEDICARE PART B [id number] 02/07/2011-Pres ent [address] [address] [place] [address] Medicare MEDICAID - OUT OF STATE MEDICAID - [place] PUBLIC AID [id number] Effective for all dates [address] [address] [place] [address] Medicaid MEDICAID - OUT OF [facility] MEDICAID - [place] PUBLIC [place]ID [id number] Effective for all dates [address] [address] [place] [address] Medicaid MEDICARE MEDICARE PART A AND B [id number] 02/07/2011-Pres ent [address] [place] [address] Medicare AAR AARP MEDICARE SUPPLEMENT [id number] 08/10/2020-Pres ent [address] [place] [address] Commercial Advance Directives * Full Code (Latest Code Status on File) Date Activated Date Inactivated Comments 02/14/2021 12:34 PM 02/23/2021 4:40 PM * Full Code Date Activated Date Inactivated Comments 02/13/2021 3:11 AM 02/14/2021 12:34 PM * Full Code Date Activated Date Inactivated Comments 02/12/2021 11:13 PM 02/13/2021 3:11 AM
--- OUTSIDE RECORDS SUMMARY | 2024-11-05 14:03 | XMS_ITS | Encounter Summary ---
Author Organization [facility] Address [facility] [place] [address] Care Team Providers Care Laser Beam Trim Operator Name Role Phone Brooke Holman Primary Care Provider [phone] Emily Montoya RN Unavailable [phone] Cailin Thompson MD Primary Care Provider [phone] Encounter Details Date Type Department Care Team (Late st Contact Info) Description 05/05/2021 [employer] Message Enc [facility] Medical Group Family & Internal Medicine [facility] [address] [place] [address] [place] [address] [place] [address] RE: Question Social History Tobacco Use Types Packs/Day Years [...] Sex Assigned at Female 07/20/2018 2:29 PM WHEEL INSTALLER Legal Sex Female 9:40 PM CDT Gender Identity Female 07/20/2018 2:29 PM WHEEL INSTALLER Sexual Orientation Straight 07/20/2018 2: 29 PM WHEEL INSTALLER documented as of this encounter Functional Status * RETIRED Are you deaf or do you have serious difficulty hearing Answer Date of Assessment Author Status No 06/30/2019 10:47 AM WHEEL INSTALLER Acti ve * RETIRED Are you blind or do you have serious difficulty seeing, even when wearing glasses? Answer Date of Assessment Author Status No 06/30/2019 10:47 AM WHEEL INSTALLER Acti ve * Do you have serious difficulty walking or climbing stairs? Answer Date of Assessment Author Status No 06/29/2019 4:31 AM WHEEL INSTALLER Kimberly Vidales RN Active * Do you have difficulty dressing or bathing? Answer Date of Assessment Author Status No 06/30/2019 10:47 AM WHEEL INSTALLER Renata Elias RN Active * Because of a physical, mental, or emotional condition, do you have difficulty doing errands alone such as visiting a doctor's office or shopping? Answer Date of Assessment Author Status No 06/30/2019 10:47 AM WHEEL INSTALLER Renata Elias RN Active documented as of this encounter Mental Status * Because of a physical, mental, or emotional condition, do you have serious difficulty concentrating, remembering, or making decisions? Answer Entry Date Author Status No 06/30/2019 10:47 AM WHEEL INSTALLER Renata Elias RN Active documented in this encounter Plan of Treatment Not on file documented as of this encounter Visit Diagnoses Not on filedocumented in this encounter Additional Health Concerns Infection Onset Date Last Indicated Resolved Time COVID-19 Rule Out 06/24/2021 06/24/2021 06/25/2021 2:13 PM WHEEL INSTALLER COVID-19 Rule Out 06/25/2021 06/25/2021 06/26/2021 10:53 AM WHEEL INSTALLER documented as of this encounter Care Teams Laser Beam Trim Operator Relationship Specialty [place] [address] [place] [address] PCP - General PHYSICIAN LUSTER APPLICATOR 07/04/20 07/01/21 Cailin Thompson MD [address] [facility] [address] [facility] [address] [place] [address] PCP - General FAMILY PRACTICE 07/02/21 Emily Montoya, RN [address] [place], [place] [id number] Pipe Smoking Machine Offbearer (Ambulatory) REGISTERED NURSE 06/25/21 07/02/21 documented as of this encounter
--- OUTSIDE RECORDS SUMMARY | 2024-11-05 14:03 | XMS_ITS | Encounter Summary ---
Author Organization [facility] Address [facility] [place] [address] Care Team Providers Care Cloth Shrinking Machine Operator Helper Name Role Phone Brooke Holman Primary Care Provider [phone] Emily Montoya RN Unavailable [phone] Cailin Thompson MD Primary Care Provider [phone] Encounter Details Date Type Department Care Team (Late st Contact Info) Description 05/03/2021 [employer] Message Enc [facility] Medical Group Family & Internal Medicine [facility] [id number] [place] [phone] [place] [address] [place] [address] RE: Question Social History Tobacco [...] Sex Assigned at Female 07/20/2018 2:29 PM COMPRESSOR ENGINEER Legal Sex Female 9:40 PM CDT Gender Identity Female 07/20/2018 2:29 PM COMPRESSOR ENGINEER Sexual Orientation Straight 07/20/2018 2: 29 PM COMPRESSOR ENGINEER COVID-19 Exposure Response Date Recorded In the last month, have you been in contact with someone who was confirmed or suspected to have Coronavirus / COVID-19? No / Unsure 04/04/2021 7:54 AM CDT documented as of this encounter Functional Status * RETIRED Are you deaf or do you have serious difficulty hearing Answer Date of Assessment Author Status No 06/30/2019 10:47 AM COMPRESSOR ENGINEER Acti ve * RETIRED Are you blind or do you have serious difficulty seeing, even when wearing glasses? Answer Date of Assessment Author Status No 06/30/2019 10:47 AM COMPRESSOR ENGINEER Acti ve * Do you have serious difficulty walking or climbing stairs? Answer Date of Assessment Author Status No 06/29/2019 4:31 AM COMPRESSOR ENGINEER Kimberly Vidales RN Active * Do you have difficulty dressing or bathing? Answer Date of Assessment Author Status No 06/30/2019 10:47 AM COMPRESSOR ENGINEER Renata Elias RN Active * Because of a physical, mental, or emotional condition, do you have difficulty doing errands alone such as visiting a doctor's office or shopping? Answer Date of Assessment Author Status No 06/30/2019 10:47 AM COMPRESSOR ENGINEER Renata Elias RN Active documented as of [...] Rule Out 06/24/2021 06/24/2021 06/25/2021 2:13 PM COMPRESSOR ENGINEER COVID-19 Rule Out 06/25/2021 06/25/2021 06/26/2021 10:53 AM COMPRESSOR ENGINEER documented as of this encounter Care Teams Cloth Shrinking Machine Operator Helper Relationship Specialty [place] [address] [place] [address] PCP - General PHYSICIAN STORE CLERK CHECKER 07/04/20 07/01/21 Cailin Thompson MD [address] [facility] [address] [place] [address] PCP - General FAMILY PRACTICE 07/02/21 Emily Montoya, RN [address] [place] [address] Kettle Girl (Ambulatory) REGISTERED NURSE 06/25/21 07/02/21 documented as of this encounter
--- OUTSIDE RECORDS SUMMARY | 2024-11-05 14:03 | XMS_ITS | Encounter Summary ---
Author Organization [facility] Address [facility] [place] [address] Care Team Providers Care Adult Ministries Director Name Role Phone Emily Montoya RN Unavailable [phone] Cailin Thompson MD Primary Care Provider [phone] Encounter Details Date Type Department Care Team (Late st Contact Info) Description 07/02/2021 [employer] Message Enc [facility] Medical Group Family & Internal Medicine [facility] [id number] [place] [address] [place] [address] [place], [place] [id number] FOLLOW UP VISIT Social History Tobacco Use Types Packs/Day Years [...] Sex Assigned at Female 07/20/2018 2:29 PM MAGAZINE KEEPER Legal Sex Female 9:40 PM CDT Gender Identity Female 07/20/2018 2:29 PM MAGAZINE KEEPER Sexual Orientation Straight 07/20/2018 2: 29 PM MAGAZINE KEEPER COVID-19 Exposure Response Date Recorded In the last month, have you been in contact with someone who was confirmed or suspected to have Coronavirus / COVID-19? No / Unsure 06/23/2021 8:11 PM MAGAZINE KEEPER documented as of this encounter Functional Status * RETIRED Are you deaf or do you have serious difficulty hearing Answer Date of Assessment Author Status No 06/24/2021 11:09 AM MAGAZINE KEEPER Acti ve * RETIRED Are you blind or do you have serious difficulty seeing, even when wearing glasses? Answer Date of Assessment Author Status No 06/24/2021 11:09 AM MAGAZINE KEEPER Acti ve * Do you have serious difficulty walking or climbing stairs? Answer Date of Assessment Author Status No 06/24/2021 11:09 AM MAGAZINE KEEPER Cristina Mcpherson R N Active * Do you have difficulty dressing or bathing? Answer Date of Assessment Author Status Yes 06/24/2021 11:09 AM MAGAZINE KEEPER Cristina Mcpherson R N Active * Because of a physical, mental, or emotional condition, do you have difficulty doing errands alone such as visiting a doctor's office or shopping? Answer Date of Assessment Author Status No 06/24/2021 11:09 AM MAGAZINE KEEPER Cristina Mcpherson R N Active documented as of this encounter Mental Status * Because of a physical, mental, or emotional condition, do you have serious difficulty concentrating, remembering, or making decisions? Answer Entry Date Author Status No 06/24/2021 11:09 AM Cristina Keith R N Active documented in this encounter Plan of Treatment Not on file documented as of this encounter Visit Diagnoses Not on filedocumented in this encounter Care Teams Adult Ministries Director Relationship Specialty Start Date End Date Cailin Thompson MD [address] [facility] [address] [place] [address] PCP - General FAMILY PRACTICE 07/02/21 Emily Montoya, RN [address] [place] [address] Emergency Medicine Medical Director (Ambulatory) REGISTERED NURSE 06/25/21 documented as of this encounter
[2024-11-05 14:14] LABS: Basophils Percent Auto 0.6 % (0.2-1.2); Eosinophils Absolute Auto 0.2 K/mm3 (0-0.3); Eosinophils Percent Auto 3.2 % (0-4.4); Hematocrit 32.9 % (37.0-47.0); Hemoglobin 9.6 g/dL (12.0-15.0); Immature Granulocyte Absolute 0.02 K/mm3 (0.00-0.031); Immature Granulocyte Percent A 0.4 % (0-0.5); Lymphocytes Absolute Auto 1.11 K/mm3 (0.9-3.2); Lymphocytes Percent Auto 20.8 % (18.3-44.2); Mean Corpuscular HGB Conc 29.2 g/dl (32-36); Mean Corpuscular Volume 92.4 fl (80-100); Monocytes Absolute Auto 0.9 K/mm3 (0.1-0.6); Monocytes Percent Auto 16.1 % (2.6-8.5); Neutrophils Absolute Auto 3.1 K/mm3 (1.3-6.7); Neutrophils Percent Auto 58.9 % (45.5-73.1); Platelet Count Result 218 k/mm3 (150-375); Red Blood Count 3.56 M/mm3 (4.2-5.4); Red Cell Distribution Width 14.6 % (11.5-14.5); White Blood Count 5.3 K/mm3 (4.5-10.0)
[2024-11-05 14:23] LABS: Prothrombin Time 13.3 Seconds (11.1-14.7)
[2024-11-05 14:24] LABS: Partial Thromboplastin Time 24.9 Seconds (22.3-36.8)
[2024-11-05] MEDS: SODIUM CHLORIDE 0.9% IV 1,000 ML 999 ML IV CONT (14:30)
[2024-11-05 14:31] LABS: Lactic Acid Reflex 2.2 mmol/L (0.7-2.0)
[2024-11-05 14:32] LABS: Alanine Aminotransferase 11 U/L (6-35); Albumin Level 3.4 g/dL (3.5-5.1); Alkaline Phosphatase 82 U/L (38-126); Anion Gap 7 mmol/L (4-12); Aspartate Amino Transferase 22 U/L (14-36); Bilirubin,Total 0.4 mg/dL (0.2-1.3); Blood Urea Nitrogen 17 mg/dL (7-17); Calcium 8.6 mg/dL (8.4-10.2); Carbon Dioxide 24 mmol/L (22-30); Chloride 110 mmol/L (98-107); Estimated CRCL calculation 24 ml/min; Estimated Glomerular Filt Rate 36; Glucose 81 mg/dL (65-110); Potassium 3.8 mmol/L (3.4-5.0); Sodium 141 mmol/L (137-145)
--- NOTE | 2024-11-05 14:34 | ED_ITS ---
HPI - Altered Mental Status General Chief Complaint: Altered Mental Status <Flaca Berrios PA-C - Last Filed: 11/11/24 17:44> Stated Complaint: AMS <SHERRILL Chapa Last Filed: 11/11/24 17:44> Time Seen by Provider: 11/05/24 13:57 <Flaca Berrios PA-C - Last Filed: 11/11/24 17:44> Source: patient, EMS, RN notes reviewed and old records reviewed <SHERRILL Chapa Last Filed: 11/11/24 17:44> Mode of arrival: EMS <SHERRILL Chapa Last Filed: 11/11/24 17:44> Limitations: dementia <SHERRILL Chapa Last Filed: 11/11/24 17:44> History of Present Illness HPI narrative: Patient is an 84-year-old female, with PMH of dementia - A&O X1 at baseline, CHF, CAD, who presents the ED via EMS with report altered mental status/syncopal episode. Patient is a resident of [facility]. Per EMS report, patient had a syncopal episode today. There was possibly report of seizure-like activity. No previous hx of seizures. Patient did have an large episode of diarrhea and vomiting afterwards. Upon my evaluation, patient has no acute complaints. Denies pain. Denies abdominal pain, chest pain, difficulty breathing. Patient was noted to be hypoxic upon arrival. Placed on 2L NC. No previous O2 requirement. Denies SOB. <Flaca Berrios PA-C - Last Filed: 11/11/24 17:44> Related Data Home Medications: Home Medications ?Medication ?Instructions ?Recorded ?Confirmed ?Last Taken ?Type Florastor 250 mg BYMOUTH BID 03/10/22 11/06/24 10/23/22 08:22 History Miralax 17 g BYMOUTH DAILY PRN Constipation 03/10/22 11/06/24 Unknown History atorvastatin 40 mg tablet 40 mg PO DAILY 03/10/22 11/06/24 11/04/24 History carvedilol 3.125 mg tablet 3.125 mg PO DAILY 03/10/22 11/06/24 11/05/24 History clopidogrel 75 mg tablet 75 mg PO DAILY 03/10/22 11/06/24 11/05/24 History colestipol 1 gram tablet 1 g PO QID 03/10/22 11/06/24 10/23/22 11:15 History divalproex 250 mg tablet,delayed 500 mg PO BID 03/10/22 11/06/24 10/23/22 08:22 History release (Depakote) donepezil 10 mg tablet 10 mg PO HS 03/10/22 11/06/24 11/04/24 History potassium chloride 20 mEq 20 meq PO BID 03/10/22 11/06/24 11/05/24 History tablet,extended release(part/cryst) prednisone 10 mg tablet 10 mg PO DAILY 03/10/22 11/06/24 11/05/24 History acetaminophen 500 mg tablet 500 mg PO Q6H PRN pain 10/24/22 11/06/24 09/15/22 09:02 History bisacodyl 10 mg rectal suppository 10 mg RECTAL HS PRN Constipation 10/24/22 11/06/24 Unknown History clotrimazole 1 % topical cream 1 applic topical BID 10/24/22 11/06/24 10/23/22 11:16 History colchicine 0.6 mg tablet 0.6 mg PO DAILY 10/24/22 11/06/24 11/05/24 History diclofenac sodium 1 % topical gel 1 ea topical DAILY 10/24/22 11/06/24 10/23/22 11:16 History (Voltaren Arthritis Pain) hydroxyzine HCl 25 mg tablet 25 mg PO TID 10/24/22 11/06/24 10/23/22 11:15 History ketoconazole 2 % topical cream 1 applic topical BID 10/24/22 05/18/24 10/23/22 04:37 History loteprednol etabonate 0.5 % eye 1 drp RIGHT EYE BID PRN Dry Eye(S) 10/24/22 05/18/24 Unknown History drops,suspension (Lotemax) megestrol 625 mg/5 mL (125 mg/mL) 5 ml PO DAILY 10/24/22 05/18/24 10/23/22 08:22 History oral suspension cyanocobalamin (vitamin B-12) 500 mcg PO DAILY 11/06/24 11/06/24 11/05/24 History 1,000 mcg capsule <Flaca Berrios PA-C - Last Filed: 11/11/24 17:44> Allergies/Adverse Reactions: Allergies Allergy/AdvReac Type Severity Reaction Status Date / Time Penicillins Allergy Unknown Verified 03/21/22 09:28 Sulfa (Sulfonamide Allergy Unknown Verified 03/21/22 09:28 Antibiotics) <Flaca Berrios PA-C - Last Filed: 11/11/24 17:44> Review of Systems 2 Review of Systems: ROS unobtainable: Yes unobtainable due to mental status <SHERRILL Chapa Last Filed: 11/11/24 17:44> [facility] Past Medical History Medical History: Medical History GERD (gastroesophageal reflux disease) Subarachnoid hemorrhage Vitamin B12 deficiency Gout Combined systolic and diastolic congestive heart failure Major depression Hypertension Hyperlipidemia Coronary artery disease Dementia With behavioral disorder <Flaca Berrios PA-C - Last Filed: 11/11/24 17:44> Surgical History Surgical History: Surgical History S/P exploratory laparotomy 03/10/2022 with lysis of adhesions Dr. Cardona History of hysterectomy History of hip replacement <SHERRILL Chapa Last Filed: 11/11/24 17:44> Family History Family History: Family History Other Unknown family medical history <Flaca Berrios PA-C - Last Filed: 11/11/24 17:44> Social History Social History: Social History Social History: She lives in [facility]. She is and she is retired. Her daughter Dora May is listed as her contact. Code status: DNR/DNI Smoking status: Former smoker Tobacco type: cigarettes Alcohol intake: current Drinks per week: 1 Substance use: never Lack of Transportation: No Lack of Food: Never True Current Housing: I Have Housing Concerned About Future Housing: No Difficulty Paying Gas/Electric Bills: YES Difficulty Paying for Meds: No Currently Unemployed: No Education: High School Diploma/GED Difficulty w/ Childcare or Family Care: No Spiritual care concerns: No <Flaca Berrios PA-C - Last Filed: 11/11/24 17:44> Exam 2 Narrative: GENERAL: Elderly, slightly pale appearing, non-toxic, in no acute distress. HEAD: Normocephalic, atraumatic. RESPIRATORY: Airway patent, respirations nonlabored. Clear to auscultation bilaterally, no rales, rhonchi, wheezing. No significant focal lung sounds. CARDIOVASCULAR: Regular rate and rhythm without murmurs, rubs, or gallops. ABDOMINAL: Soft, mild diffuse tenderness, no rebound or focal tenderness, nondistended. Normoactive BS. MUSCULOSKELETAL: Moves all extremities. No gross deformities. No peripheral edema. SKIN: Warm, dry, normal color. NEURO: A&O X1, knows her name, but is unclear of place/location or time. Answers all questions. Speech clear. No ataxic movements. No appreciable focal deficits. Moves all extremities equally. No facial droop. Peripheral pulses intact. PSYCHIATRIC: Appropriate mood and affect. Normal interaction. <Flaca Berrios PA-C - Last Filed: 11/11/24 17:44> Course MANAGER BACKGROUND/PA Physician Supervision Patient's HPI, Exam, and MDM were reviewed and I agreed with the workup and disposition done in the emergency department by the MLP. I independently evaluated the patient at bedside, provided my own recommendations and given patient's significant decompensation with respiratory efforts and advanced dementia with wheezing and significant VBG abnormalities and current DNR status, next steps were for comfort care discussions. patient's family member was spoken to multiple times and after returning to the emergency department and seeing the patient's clinical decompensation and struggling to breathe despite maximum supportive care without invasive ventilation, decision was made by family to place the patient on hospice care. Hospice youth care professional came to evaluate the patient at bedside and she was admitted to the hospital for inpatient hospice on a morphine drip and p.r.n. medications. <Jim Paredes MD - Last Filed: 11/06/24 21:04> Vital Signs Vital signs: Vital Signs Temperature 97.9 F 11/05/24 14:01 Pulse Rate 62 11/05/24 14:01 Respiratory Rate 20 11/05/24 14:01 Blood Pressure 112/56 L 11/05/24 14:01 Pulse Oximetry 89 L 11/05/24 14:01 Oxygen Delivery Room Air 11/05/24 14:01 Temperature 97.9 F 11/05/24 14:01 Pulse Rate 97 11/05/24 21:01 Respiratory Rate 26 H 11/05/24 21:01 Blood Pressure 85/43 L 11/05/24 21:01 Pulse Oximetry 78 L 11/05/24 21:01 Oxygen Delivery High Flow Nasal Cannula 11/05/24 19:29 Oxygen Flow Rate 15 11/05/24 19:29 Fraction of Inspired Oxygen 90 11/05/24 19:03 <Flaca Berrios PA-C - Last Filed: 11/11/24 17:44> Vital Signs Temperature 97.9 F 11/05/24 14:01 Pulse Rate 62 11/05/24 14:01 Respiratory Rate 20 11/05/24 14:01 Blood Pressure 112/56 L 11/05/24 14:01 Pulse Oximetry 89 L 11/05/24 14:01 Oxygen Delivery Room Air 11/05/24 14:01 Temperature 97.9 F 11/05/24 14:01 Pulse Rate 97 11/05/24 21:01 Respiratory Rate 26 H 11/05/24 21:01 Blood Pressure 85/43 L 11/05/24 21:01 Pulse Oximetry 78 L 11/05/24 21:01 Oxygen Delivery High Flow Nasal Cannula 11/05/24 19:29 Oxygen Flow Rate 15 11/05/24 19:29 Fraction of Inspired Oxygen 90 11/05/24 19:03 <Jim Paredes MD - Last Filed: 11/06/24 21:04> MDM - Altered Mental Status MDM Narrative Medical decision making narrative: Patient presented to ED from local [facility] with report of possible syncopal episode versus seizure activity, vomiting, diarrhea. Vital signs are stable upon arrival, though patient was initially noted to be hypoxic on room air down to 88%. She was placed on 2 L nasal cannula. No previous oxygen requirement. She is denying difficulty breathing. Does not appear in any respiratory distress. Lungs are otherwise relatively clear to auscultation upon my initial exam. She has no acute complaints to myself. Neurologically intact. No appreciable focal deficits. Laboratory studies without leukocytosis. Slight anemia noted at 9.6. This does appear fairly consistent with previous records however. [facility] H[facility] 09/26/24 was 10.0. CMP today with creatinine of 1.4. No recent records in EMR to compare to, however [facility] to show creatinine from 09/26/24 was 1.04. Fluids initiated. Lactic acid mildly elevated 2.2. Magnesium borderline at 1.7. IV replacement given. EKG does show some scattered global ST depressions and T- wave inversions. No STEMI. Baseline troponin is 0.018. Will continue to trend. Patient is denying chest pain, but is not the most reliable historian. UA w/ evidence of infection, rocephin started, cx obtained. Viral swabs negative. CT brain w/o acute changes. Chest x-ray clear. D-dimer elevated. CTA of chest w/ abdomen/pelvis was ordered. Initially had difficulty obtaining second CT imaging as patient became agitated and wanting to refuse. She was given a small dose of Ativan and CT imaging was able to be obtained. This resulted unremarkable. No PE. No focal infiltrates. No aortic abnormalities. No intra-abdominal pathology. Concern for possible aspiration given vomiting/syncopal episode with acute hypoxia. Will initiate broad spectrum antibiotics. DDx also includes acute neurologic event, copd exacerbation, viral syndrome, seizure. I was called to ED bed about an hour after patient's CT imaging. Patient had a sudden decompensation. She became extremely agitated and combative. Pulling off all oxygen, trying to get out of bed, difficulty redirecting. Requiring increased oxygen. Oxygen saturations now downtrending to the 40s and 50s on room air. Now with diffuse wheezing in lung raygoza, tachypnea. Respiratory was notified. Nebulizer treatment initiated with high-flow nasal cannula. VBG was obtained and showing hypoxic hypercapnic respiratory failure. Patient still agitated despite ativan and haldol, unable to tolerate BiPAP at this time as she is requiring multiple nurses to hold her down to allow for nebulizer treatment. Patient is a DNR. Daughter is medical POA. I discussed with patient's daughter via phone and recommended that she return to the ED to discuss goals of care. Do not feel it is appropriate to restrain patient for BiPAP. Daughter does not believe patient would want intubation. She has signed DNR on file. At this time, unfortunately there are no great options for respiratory support aside from aggressive measures/ventilator support. Currently on high flow NC but still saturating in low to mid 80s%. Patient now somnolent/unresponsive. Daughter now back at bedside. I discussed hospice/comfort care with patient's daughter. Daughter is ultimately agreeable with this. Son now also at bedside and in agreement. Family want patient to be as comfortable and peaceful as possible. Will contact hospice care team. Comfort orders placed. Given dose of ativan and morphine. Will start morphine drip. [facility] hosp[facility] at bedside. Patient qualifies for inpatient hospice and will be admitted to the hospital under Dr. Zurita. <SHERRILL Chapa Last Filed: 11/11/24 17:44> Medical Records Attestation: I reviewed the patient's medical records. <Flaca Berrios PA-C - Last Filed: 11/11/24 17:44> Lab Data Attestation: I reviewed the patient's lab results. <Flaca Berrios PA-C - Last Filed: 11/11/24 17:44> Result diagrams: 11/05/24 14:07 11/05/24 14:07 <Flaca Berrios PA-C - Last Filed: 11/11/24 17:44> Labs: Lab Results 11/05/24 11/05/24 11/05/24 Range/Units 14:07 14:23 16:29 WBC 5.3 (4.5-10.0) K/mm3 RBC 3.56 L (4.2-5.4) M/mm3 Hgb 9.6 L (12.0-15.0) g/dL Hct 32.9 L (37.0-47.0) % MCV 92.4 (80-100) fl MCH 27.0 (26-34) pg MCHC 29.2 L (32-36) g/dl RDW 14.6 H (11.5-14.5) % Plt Count 218 (150-375) k/mm3 MPV 11.0 H (7.4-10.4) fl Immature Gran % (Auto) 0.4 (0-0.5) % Neut % (Auto) 58.9 (45.5-73.1) % Lymph % (Auto) 20.8 (18.3-44.2) % [place] % (Auto) 16.1 H (2.6-8.5) % Eos % (Auto) 3.2 (0-4.4) % Baso % (Auto) 0.6 (0.2-1.2) % Lymph # (Auto) 1.11 (0.9-3.2) K/mm3 [place] # (Auto) 0.9 H (0.1-0.6) K/mm3 Eos # (Auto) 0.2 (0-0.3) K/mm3 Baso # (Auto) 0.0 (0.0-0.1) K/mm3 Abs Immat Gran (auto) 0.02 (0.00-0.031) K/mm3 Absolute Neuts (auto) 3.1 (1.3-6.7) K/mm3 Absolute Nucleated RBC 0.000 (0.0-0.012) K/mm3 Band Neutrophils % 0 (0-6) % Nucleated RBC % 0.0 (0.0-0.2) % Platelet Estimate Adequate (Adequate) Hypochromasia 1+ Schistocytes None seen PT 13.3 (11.1-14.7) Seconds INR 1.0 APTT 24.9 (22.3-36.8) Seconds D-Dimer 2.54 H (<0.48) ug/mL Sodium 141 (137-145) mmol/L Potassium 3.8 (3.4-5.0) mmol/L Chloride 110 H (98-107) mmol/L Carbon Dioxide 24 (22-30) mmol/L Anion Gap 7 (4-12) mmol/L BUN 17 (7-17) mg/dL Creatinine 1.40 H (0.7-1.0) mg/dL Estim Creat Clear Calc 24 ml/min Estimated GFR 36 L (59 - ) Glucose 81 (65-110) mg/dL Lactic Acid 2.2 H (0.7-2.0) mmol/L Calcium 8.6 (8.4-10.2) mg/dL Magnesium 1.7 (1.6-2.3) mg/dL Total Bilirubin 0.4 (0.2-1.3) mg/dL AST 22 (14-36) U/L ALT 11 (6-35) U/L Alkaline Phosphatase 82 (38-126) U/L Troponin I 0.018 (0.000-0.034) ng/mL Total Protein 7.0 (6.3-8.2) g/dL Albumin 3.4 L (3.5-5.1) g/dL Urine Color Yellow (Yellow) Urine Appearance Cloudy H (Clear) Urine pH 5.0 (5.0-9.0) Ur Specific [place] 1.024 (1.001-1.035) Urine Protein Trace (Negative) mg/dL Urine Glucose (UA) Negative (Negative) mg/dL Urine Ketones Trace H (Negative) mg/dL Ur Blood (Man) Negative (Negative) Urine Nitrate Negative (Negative) Urine Bilirubin Negative (Negative) Urine Urobilinogen 1.0 (<2.0) mg/dL Leukocyte Esterase Rfl 3+ H (Negative) SALLIE/UL Urine RBC 3-5 H (0-2) /hpf Urine WBC >100 H (0-3) /hpf Ur Squamous Epith Cells Occasional (Few) /hpf Urine Bacteria 1+ H /hpf Urine Casts 11-20 Hyaline Casts Present (None) /lpf Nasal MRSA (PCR) (NOT DETECTE) Influenza A (RT-PCR) Negative (Negative) Influenza B (RT-PCR) Negative (Negative) RSV (RT-PCR) Negative (Negative) SARS-CoV-2 RNA (RT-PCR) Negative (Negative) 11/05/24 11/05/24 Range/Units 17:11 19:17 WBC (4.5-10.0) K/mm3 RBC (4.2-5.4) M/mm3 Hgb (12.0-15.0) g/dL Hct (37.0-47.0) % MCV (80-100) fl MCH (26-34) pg MCHC (32-36) g/dl RDW (11.5-14.5) % Plt Count (150-375) k/mm3 MPV (7.4-10.4) fl Immature Gran % (Auto) (0-0.5) % Neut % (Auto) (45.5-73.1) % Lymph % (Auto) (18.3-44.2) % [place] % (Auto) (2.6-8.5) % Eos % (Auto) (0-4.4) % Baso % (Auto) (0.2-1.2) % Lymph # (Auto) (0.9-3.2) K/mm3 [place] # (Auto) (0.1-0.6) K/mm3 Eos # (Auto) (0-0.3) K/mm3 Baso # (Auto) (0.0-0.1) K/mm3 Abs Immat Gran (auto) (0.00-0.031) K/mm3 Absolute Neuts (auto) (1.3-6.7) K/mm3 Absolute Nucleated RBC (0.0-0.012) K/mm3 Band Neutrophils % (0-6) % Nucleated RBC % (0.0-0.2) % Platelet Estimate (Adequate) Hypochromasia Schistocytes PT (11.1-14.7) Seconds INR APTT (22.3-36.8) Seconds D-Dimer (<0.48) ug/mL Sodium (137-145) mmol/L Potassium (3.4-5.0) mmol/L Chloride (98-107) mmol/L Carbon Dioxide (22-30) mmol/L Anion Gap (4-12) mmol/L BUN (7-17) mg/dL Creatinine (0.7-1.0) mg/dL Estim Creat Clear Calc ml/min Estimated GFR (59 - ) Glucose (65-110) mg/dL Lactic Acid 1.2 (0.7-2.0) mmol/L Calcium (8.4-10.2) mg/dL Magnesium (1.6-2.3) mg/dL Total Bilirubin (0.2-1.3) mg/dL AST (14-36) U/L ALT (6-35) U/L Alkaline Phosphatase (38-126) U/L Troponin I 0.023 D (0.000-0.034) ng/mL Total Protein (6.3-8.2) g/dL Albumin (3.5-5.1) g/dL Urine Color (Yellow) Urine Appearance (Clear) Urine pH (5.0-9.0) Ur Specific [place] (1.001-1.035) Urine Protein (Negative) mg/dL Urine Glucose (UA) (Negative) mg/dL Urine Ketones (Negative) mg/dL Ur Blood (Man) (Negative) Urine Nitrate (Negative) Urine Bilirubin (Negative) Urine Urobilinogen (<2.0) mg/dL Leukocyte Esterase Rfl (Negative) SALLIE/UL Urine RBC (0-2) /hpf Urine WBC (0-3) /hpf Ur Squamous Epith Cells (Few) /hpf Urine Bacteria /hpf Urine Casts Hyaline Casts (None) /lpf Nasal MRSA (PCR) Detected A* (NOT DETECTE) Influenza A (RT-PCR) (Negative) Influenza B (RT-PCR) (Negative) RSV (RT-PCR) (Negative) SARS-CoV-2 RNA (RT-PCR) (Negative) <Flaca Berrios PA-C - Last Filed: 11/11/24 17:44> Lab Results 11/05/24 11/05/24 11/05/24 Range/Units 14:07 14:23 16:29 WBC 5.3 (4.5-10.0) K/mm3 RBC 3.56 L (4.2-5.4) M/mm3 Hgb 9.6 L (12.0-15.0) g/dL Hct 32.9 L (37.0-47.0) % MCV 92.4 (80-100) fl MCH 27.0 (26-34) pg MCHC 29.2 L (32-36) g/dl RDW 14.6 H (11.5-14.5) % Plt Count 218 (150-375) k/mm3 MPV 11.0 H (7.4-10.4) fl Immature Gran % (Auto) 0.4 (0-0.5) % Neut % (Auto) 58.9 (45.5-73.1) % Lymph % (Auto) 20.8 (18.3-44.2) % [place] % (Auto) 16.1 H (2.6-8.5) % Eos % (Auto) 3.2 (0-4.4) % Baso % (Auto) 0.6 (0.2-1.2) % Lymph # (Auto) 1.11 (0.9-3.2) K/mm3 [place] # (Auto) 0.9 H (0.1-0.6) K/mm3 Eos # (Auto) 0.2 (0-0.3) K/mm3 Baso # (Auto) 0.0 (0.0-0.1) K/mm3 Abs Immat Gran (auto) 0.02 (0.00-0.031) K/mm3 Absolute Neuts (auto) 3.1 (1.3-6.7) K/mm3 Absolute Nucleated RBC 0.000 (0.0-0.012) K/mm3 Band Neutrophils % 0 (0-6) % Nucleated RBC % 0.0 (0.0-0.2) % Platelet Estimate Adequate (Adequate) Hypochromasia 1+ Schistocytes None seen PT 13.3 (11.1-14.7) Seconds INR 1.0 APTT 24.9 (22.3-36.8) Seconds D-Dimer 2.54 H (<0.48) ug/mL Sodium 141 (137-145) mmol/L Potassium 3.8 (3.4-5.0) mmol/L Chloride 110 H (98-107) mmol/L Carbon Dioxide 24 (22-30) mmol/L Anion Gap 7 (4-12) mmol/L BUN 17 (7-17) mg/dL Creatinine 1.40 H (0.7-1.0) mg/dL Estim Creat Clear Calc 24 ml/min Estimated GFR 36 L (59 - ) Glucose 81 (65-110) mg/dL Lactic Acid 2.2 H (0.7-2.0) mmol/L Calcium 8.6 (8.4-10.2) mg/dL Magnesium 1.7 (1.6-2.3) mg/dL Total Bilirubin 0.4 (0.2-1.3) mg/dL AST 22 (14-36) U/L ALT 11 (6-35) U/L Alkaline Phosphatase 82 (38-126) U/L Troponin I 0.018 (0.000-0.034) ng/mL Total Protein 7.0 (6.3-8.2) g/dL Albumin 3.4 L (3.5-5.1) g/dL Urine Color Yellow (Yellow) Urine Appearance Cloudy H (Clear) Urine pH 5.0 (5.0-9.0) Ur Specific [place] 1.024 (1.001-1.035) Urine Protein Trace (Negative) mg/dL Urine Glucose (UA) Negative (Negative) mg/dL Urine Ketones Trace H (Negative) mg/dL Ur Blood (Man) Negative (Negative) Urine Nitrate Negative (Negative) Urine Bilirubin Negative (Negative) Urine Urobilinogen 1.0 (<2.0) mg/dL Leukocyte Esterase Rfl 3+ H (Negative) SALLIE/UL Urine RBC 3-5 H (0-2) /hpf Urine WBC >100 H (0-3) /hpf Ur Squamous Epith Cells Occasional (Few) /hpf Urine Bacteria 1+ H /hpf Urine Casts 11-20 Hyaline Casts Present (None) /lpf Nasal MRSA (PCR) (NOT DETECTE) Influenza A (RT-PCR) Negative (Negative) Influenza B (RT-PCR) Negative (Negative) RSV (RT-PCR) Negative (Negative) SARS-CoV-2 RNA (RT-PCR) Negative (Negative) 11/05/24 11/05/24 Range/Units 17:11 19:17 WBC (4.5-10.0) K/mm3 RBC (4.2-5.4) M/mm3 Hgb (12.0-15.0) g/dL Hct (37.0-47.0) % MCV (80-100) fl MCH (26-34) pg MCHC (32-36) g/dl RDW (11.5-14.5) % Plt Count (150-375) k/mm3 MPV (7.4-10.4) fl Immature Gran % (Auto) (0-0.5) % Neut % (Auto) (45.5-73.1) % Lymph % (Auto) (18.3-44.2) % [place] % (Auto) (2.6-8.5) % Eos % (Auto) (0-4.4) % Baso % (Auto) (0.2-1.2) % Lymph # (Auto) (0.9-3.2) K/mm3 [place] # (Auto) (0.1-0.6) K/mm3 Eos # (Auto) (0-0.3) K/mm3 Baso # (Auto) (0.0-0.1) K/mm3 Abs Immat Gran (auto) (0.00-0.031) K/mm3 Absolute Neuts (auto) (1.3-6.7) K/mm3 Absolute Nucleated RBC (0.0-0.012) K/mm3 Band Neutrophils % (0-6) % Nucleated RBC % (0.0-0.2) % Platelet Estimate (Adequate) Hypochromasia Schistocytes PT (11.1-14.7) Seconds INR APTT (22.3-36.8) Seconds D-Dimer (<0.48) ug/mL Sodium (137-145) mmol/L Potassium (3.4-5.0) mmol/L Chloride (98-107) mmol/L Carbon Dioxide (22-30) mmol/L Anion Gap (4-12) mmol/L BUN (7-17) mg/dL Creatinine (0.7-1.0) mg/dL Estim Creat Clear Calc ml/min Estimated GFR (59 - ) Glucose (65-110) mg/dL Lactic Acid 1.2 (0.7-2.0) mmol/L Calcium (8.4-10.2) mg/dL Magnesium (1.6-2.3) mg/dL Total Bilirubin (0.2-1.3) mg/dL AST (14-36) U/L ALT (6-35) U/L Alkaline Phosphatase (38-126) U/L Troponin I 0.023 D (0.000-0.034) ng/mL Total Protein (6.3-8.2) g/dL Albumin (3.5-5.1) g/dL Urine Color (Yellow) Urine Appearance (Clear) Urine pH (5.0-9.0) Ur Specific [place] (1.001-1.035) Urine Protein (Negative) mg/dL Urine Glucose (UA) (Negative) mg/dL Urine Ketones (Negative) mg/dL Ur Blood (Man) (Negative) Urine Nitrate (Negative) Urine Bilirubin (Negative) Urine Urobilinogen (<2.0) mg/dL Leukocyte Esterase Rfl (Negative) SALLIE/UL Urine RBC (0-2) /hpf Urine WBC (0-3) /hpf Ur Squamous Epith Cells (Few) /hpf Urine Bacteria /hpf Urine Casts Hyaline Casts (None) /lpf Nasal MRSA (PCR) Detected A* (NOT DETECTE) Influenza A (RT-PCR) (Negative) Influenza B (RT-PCR) (Negative) RSV (RT-PCR) (Negative) SARS-CoV-2 RNA (RT-PCR) (Negative) <Jim Paredes MD - Last Filed: 11/06/24 21:04> ABG Data ABG results: 11/05/24 19:03 VBG pH 7.096 L* VBG pCO2 83.3 H* VBG pO2 < 27.0 L VBG HCO3 25.0 O2 Delivery Device High flow nasal tanya O2 Liters/Min 10.0 FiO2 60 <Flaca Berrios PA-C - Last Filed: 11/11/24 17:44> 11/05/24 19:03 VBG pH 7.096 L* VBG pCO2 83.3 H* VBG pO2 < 27.0 L VBG HCO3 25.0 O2 Delivery Device High flow nasal tanya O2 Liters/Min 10.0 FiO2 60 <Jim Paredes MD - Last Filed: 11/06/24 21:04> Attestation: I personally reviewed and interpreted this ABG as follows: <Flaca Berrios PA-C - Last Filed: 11/11/24 17:44> Imaging Data Attestation: I personally reviewed and interpreted this imaging study as follows: < Flaca Berrios PA-C - Last Filed: 11/11/24 17:44> Radiologist's impression: ITS Impressions Chest X-Ray 11/05/24 14:50 IMPRESSION: No focal infiltrate or effusion. Head CT 11/05/24 14:53 Impression: No acute intracranial hemorrhage or suspicious mass effect. Chest/Abdomen/Pelvis CTA 11/05/24 18:48 IMPRESSION: No acute pathology detected within the chest, abdomen or pelvis, as detailed above. No pulmonary embolus. No aortic dissection. <SHERRILL Chapa Last Filed: 11/11/24 17:44> ECG Data EKG #1: Attestation: I personally reviewed and interpreted this ECG as follows: <Flaca Berrios PA-C - Last Filed: 11/11/24 17:44> ECG completion date: 11/05/24 <SHERRILL Chapa Last Filed: 11/11/24 17:44> ECG completion time: 14:03 <SHERRILL hCapa Last Filed: 11/11/24 17:44> EKG Interpretation: bradycardia (58), sinus rhythm (First-degree AV block), non-specific ST changes, ST depression and normal QT <SHERRILL Chapa Last Filed: 11/11/24 17:44> Critical Care Time Critical Care Time Critical Care Time: Yes <Jim Paredes MD - Last Filed: 11/06/24 21:04> Total Critical Care Time: 35 <Jim Paredes MD - Last Filed: 11/06/24 21:04> Discharge Plan Discharge Clinical Impression: Acute respiratory failure with hypoxia and hypercapnia, Syncope, UTI (urinary tract infection), ADRY (acute kidney injury) <SHERRILL Chapa Last Filed: 11/11/24 17:44> Patient Disposition: [facility] <SHERRILL Chapa Last Filed: 11/11/24 17:44> Condition: Guarded Prognosis <SHERRILL Chapa Last Filed: 11/11/24 17:44> Patient Language: German <SHERRILL Chapa Last Filed: 11/11/24 17:44> Prescriptions: No Action atorvastatin 40 mg tablet 40 mg PO DAILY Rx Instructions: taken in the evening prednisone 10 mg tablet 10 mg PO DAILY Rx Instructions: taken in the morning divalproex [Depakote] 250 mg tablet,delayed release (DR/EC) 500 mg PO BID donepezil 10 mg tablet 10 mg PO HS clopidogrel 75 mg tablet 75 mg PO DAILY carvedilol 3.125 mg tablet 3.125 mg PO DAILY potassium chloride 20 mEq tablet,ER particles/crystals 20 meq PO BID colestipol 1 gram tablet 1 g PO QID Florastor 250 mg BYMOUTH BID Rx Instructions: TAKES 2 TABS Miralax 17 g BYMOUTH DAILY PRN (Reason: Constipation) acetaminophen 500 mg Tablet 500 mg PO Q6H PRN (Reason: pain) bisacodyl 10 mg Suppository 10 mg RECTAL HS PRN (Reason: Constipation) Rx Instructions: PRN FOR NO BM 1-2 DAYS hydroxyzine HCl 25 mg Tablet 25 mg PO TID loteprednol etabonate [Lotemax] 0.5 % Drops,Suspension 1 drp RIGHT EYE BID PRN (Reason: Dry Eye(S)) colchicine 0.6 mg Tablet 0.6 mg PO DAILY ketoconazole 2 % Cream 1 applic TOPICAL BID Rx Instructions: apply thin layer, topical, twice a day, ketocanasol 2%, mix with clobetasole 0.05%, apply 2 times daily to rash clotrimazole 1 % Cream 1 applic TOPICAL BID Rx Instructions: apply to fungal rash to buttocks and lower back megestrol 625 mg/5 mL (125 mg/mL) Suspension 5 ml PO DAILY diclofenac sodium [Voltaren Arthritis Pain] 1 % Gel 1 ea TOPICAL DAILY pantoprazole 40 mg tablet,delayed release (DR/EC) 40 mg PO QAM Qty: 30 0RF cyanocobalamin (vitamin B-12) 1,000 mcg capsule 500 mcg PO DAILY <Flaca Berrios PA-C - Last Filed: 11/11/24 17:44> Follow-up/Referrals: Donna,Cailin Lawson MD [Primary Care Provider] - <Flaca Berrios PA-C - Last Filed: 11/11/24 17:44>
[2024-11-05 14:35] LABS: Platelet Estimate Adequate (Adequate); Schistocytes None Seen
[2024-11-05 14:36] LABS: Hypochromasia 1+
[2024-11-05 14:37] LABS: Band Neutrophils Percent 0 % (0-6)
[2024-11-05 14:39] LABS: Magnesium 1.7 mg/dL (1.6-2.3)
[2024-11-05 14:44] LABS: Troponin I 0.018 ng/mL (0.000-0.034)
[2024-11-05 15:02] LABS: Influenza A QL RT-PCR Negative (Negative); Influenza B QL RT-PCR Negative (Negative); RSV RNA, RT-PCR Negative (Negative); SARS-CoV-2 RNA PCR Negative (Negative)
[2024-11-05] MEDS: MAGNESIUM SULF 2 GM/WATER 50ML 2 GM/50 ML BAG IVPB (15:14)
[2024-11-05 15:44] LABS: D Dimer 2.54 ug/mL (<0.48)
[2024-11-05 16:10] LABS: Reflex Lactic Acid Yes or No Add Lactic
[2024-11-05 16:53] LABS: Add Urine Microscopic? YES; Appearance Urine Cloudy (Clear); Bacteria Urine 1+ /hpf; Bilirubin Urine Negative (Negative); Blood Urine Negative (Negative); Color Urine Yellow (Yellow); Glucose Urine UA Negative (Negative); Hyaline Casts Urine Present /lpf; Ketones Urine Trace mg/dL (Negative); Leukocyte Esterase Ur 3+ LEU/UL (Negative); Nitrate Urine Negative (Negative); Protein Urine Trace mg/dL (Negative); Specific Grav Ur 1.024 (1.001-1.035); Squamous Epithelial Cell Urine Occasional /hpf (Few); WBC Urine >100 /hpf (0-3)
[2024-11-05] MEDS: LORazepam INJ (*CRX) 2 MG/ML VIAL 1 MG IV PUSH (17:23)
[2024-11-05 17:38] LABS: Lactic Acid 1.2 mmol/L (0.7-2.0)
--- NOTE | 2024-11-05 17:42 | ECG_ITS ---
Test Date: 2024-11-05 18:28:06 Measurements Intervals [place] Rate: 87 P: 65 TX: 200 QRS: 22 QRSD: 93 T: 198 QT: 370 QTc: 446 Interpretive Statements SINUS RHYTHM [address] DEVIATION AND MODERATE T-WAVE ABNORMALITY, CONSIDER LATERAL ISCHEMIA [-0.1+ mV T WAVE IN I/aVL/V5/V6] ST DEVIATION AND MODERATE T-WAVE ABNORMALITY, CONSIDER INFERIOR ISCHEMIA [-0.1+ mV T WAVE IN II/aVF] ABNORMAL ECG Electronically Signed On 11-06-2024 07:39:04 CDT by Francisco Nath M.D.
[2024-11-05 17:51] LABS: Troponin I 0.023 ng/mL (0.000-0.034)
[2024-11-05] MEDS: IPRATROPIUM BR 0.02% INH SOLN 0.5 MG/2.5 ML VIAL 1.5 MG INHALATION (18:58)
[2024-11-05] MEDS: LEVALBUTEROL NEB 1.25 MG/3 ML 2.5 MG INHALATION (18:59)
[2024-11-05] MEDS: HALOPERIDOL LACTATE 5 MG/ML VIAL 2.5 MG IV PUSH (18:59)
[2024-11-05 19:09] LABS: Fractional Inspired Oxygen 60 %
[2024-11-05 19:13] LABS: pH VBG 7.096 (7.300-7.400)
[2024-11-05 19:14] LABS: Device HIGH FLOW NASAL CANN; PCO2 VBG 83.3 mmHg (42.0-48.0); PO2 VBG < 27.0 mmHg (35.0-45.0)
--- NOTE | 2024-11-05 19:37 | PC.NURSE ---
TIBURCIO Thayer spoke with POA of the pt (her daughter) and they have decided to go through with comfort measures for pt. TIBURCIO Thayer verbally states we do not need antibiotics and that she is putting in orderd for ativan and morphine to keep pt comfortable at this time. TIBURCIO Thayer verbally states we will continue with respiratory orders at this time as well.
[2024-11-05] MEDS: LORazepam INJ (*CRX) 2 MG/ML VIAL IV PUSH (19:49)
[2024-11-05] MEDS: MORPHINE SULFATE (*CRX) 2 MG/ML INJ IV PUSH (19:49)
--- NOTE | 2024-11-05 19:54 | PC.NURSE ---
RN attempted to call pt nurse at facility for update and was told she was on lunch break. RN gave them a good call back number at this time and will be waiting for them to call back to give them update on pt.
--- NOTE | 2024-11-05 20:00 | PC.NURSE ---
FATIMAH consulted. Spoke with Mylene
--- NOTE | 2024-11-05 20:17 | PC.NURSE ---
Received a call from [employer] stating they will be sending a nurse out.
[2024-11-05] MEDS: IPRATROPIUM BR 0.02% INH SOLN 0.5 MG/2.5 ML VIAL (20:30)
[2024-11-05] MEDS: LEVALBUTEROL NEB 1.25 MG/3 ML (20:30)
[2024-11-05 21:15] LABS: MRSA (PCR) DETECTED (NOT DETECTE)
[2024-11-05] MEDS: MORPHINE 50 MG/NS 100ML (*CRX) 50 MG/100 ML BAG 8 MG IV CONT (21:39)
--- NOTE | 2024-11-06 00:26 | PC.NURSE ---
RN gave report to Mercedes Cartwright from [facility]rd med surg at 2307. Pt linens and diaper was checked prior to going upstairs. Pt was taken up with IV morphine drip and hospice paper work, DNR paperwork. Pt taken upstairs with no difficulties. Pt facility number to contact with updates is [phone].
== END 2024-11-05 22:37 | disposition hospice, inpatient (51) ==
PROVIDERS: Emergency Provider Physician Assistant; PCP Family Medicine
DX: J96.01 Acute respiratory failure with hypoxia (principal); J96.02 Acute respiratory failure with hypercapnia; N17.9 Acute kidney failure, unspecified; N39.0 Urinary tract infection, site not specified; R55 Syncope and collapse; Z20.822 Contact with and (suspected) exposure to COVID-19; F03.918 Unspecified dementia, unspecified severity, with other behavioral disturbance; I50.40 Unspecified combined systolic (congestive) and diastolic (congestive) heart failure; I11.0 Hypertensive heart disease with heart failure; I25.10 Atherosclerotic heart disease of native coronary artery without angina pectoris; E78.5 Hyperlipidemia, unspecified; E53.8 Deficiency of other specified B group vitamins; K21.9 Gastro-esophageal reflux disease without esophagitis; M10.9 Gout, unspecified; F32.9 Major depressive disorder, single episode, unspecified; Z66 Do not resuscitate; Z96.649 Presence of unspecified artificial hip joint; Z87.891 Personal history of nicotine dependence; Z90.710 Acquired absence of both cervix and uterus; Z79.02 Long term (current) use of antithrombotics/antiplatelets; Z79.899 Other long term (current) drug therapy; R00.1 Bradycardia, unspecified; I44.0 Atrioventricular block, first degree; I51.7 Cardiomegaly; R94.31 Abnormal electrocardiogram [ECG] [EKG]
CPT/HCPCS: 36415; 70450; 71045; 71275; 74177; 80053; 81001; 82803; 83605; 83735; 84484; 85025; 85380; 85610; 85730; 87077; 87086; 87186; 87637; 87641; 93005; 94640; 96365; 96367; 96375; 96376; 99291; J0696; J1630; J2060; J2270; J3475; J7030; Q9967

== ENCOUNTER 2024-11-05 22:38 | HOS | payer OTHER, MEDICARE, MEDICAID, SELFPAY ==
--- OUTSIDE RECORDS SUMMARY | 2024-11-05 22:53 | XMS_ITS | Encounter Summary ---
Author Organization [facility] Address [facility] [place] [address] Care Team Providers Care Adoption Social Worker Name Role Phone Brooke Holman Primary Care Provider [phone] Emily Montoya RN Unavailable [phone] Cailin Thompson MD Primary Care Provider [phone] Encounter Details Date Type Department Care Team (Late st Contact Info) Description 05/05/2021 [employer] Message Enc [facility] Medical [facility] Family & Internal Medicine [facility] [address] [place] [address] [place] [address] [place] [address] RE: Question Social History Tobacco [...] Sex Assigned at Female 07/20/2018 2:29 PM ROOFING PLANT SUPERVISOR Legal Sex Female 9:40 PM CDT Gender Identity Female 07/20/2018 2:29 PM ROOFING PLANT SUPERVISOR Sexual Orientation Straight 07/20/2018 2: 29 PM ROOFING PLANT SUPERVISOR documented as of this encounter Functional Status * RETIRED Are you deaf or do you have serious difficulty hearing Answer Date of Assessment Author Status No 06/30/2019 10:47 AM ROOFING PLANT SUPERVISOR Acti ve * RETIRED Are you blind or do you have serious difficulty seeing, even when wearing glasses? Answer Date of Assessment Author Status No 06/30/2019 10:47 AM ROOFING PLANT SUPERVISOR Acti ve * Do you have serious difficulty walking or climbing stairs? Answer Date of Assessment Author Status No 06/29/2019 4:31 AM ROOFING PLANT SUPERVISOR Kimberly Vidales RN Active * Do you have difficulty dressing or bathing? Answer Date of Assessment Author Status No 06/30/2019 10:47 AM ROOFING PLANT SUPERVISOR Renata Elias RN Active * Because of a physical, mental, or emotional condition, do you have difficulty doing errands alone such as visiting a doctor's office or shopping? Answer Date of Assessment Author Status No 06/30/2019 10:47 AM ROOFING PLANT SUPERVISOR Renata Elias RN Active documented as of this encounter Mental Status * Because of a physical, mental, or emotional condition, do you have serious difficulty concentrating, remembering, or making decisions? Answer Entry Date Author Status No 06/30/2019 10:47 AM ROOFING PLANT SUPERVISOR Renata Elias RN Active documented in this encounter Plan of Treatment Not on file documented as of this encounter Visit Diagnoses Not on filedocumented in this encounter Additional Health Concerns Infection Onset Date Last Indicated Resolved Time COVID-19 Rule Out 06/24/2021 06/24/2021 06/25/2021 2:13 PM ROOFING PLANT SUPERVISOR COVID-19 Rule Out 06/25/2021 06/25/2021 06/26/2021 10:53 AM ROOFING PLANT SUPERVISOR documented as of this encounter Care Teams Adoption Social Worker Relationship Specialty [place] [address] [place] [address] PCP - General PHYSICIAN PRODUCTION LINE MANAGER 07/04/20 07/01/21 Cailin Thompson MD [address] [facility] [address] [facility] [address] [place] [address] PCP - General FAMILY PRACTICE 07/02/21 Emily Montoya, RN [address] [place], [place] [id number] Planer Setter (Ambulatory) REGISTERED NURSE 06/25/21 07/02/21 documented as of this encounter
--- OUTSIDE RECORDS SUMMARY | 2024-11-05 22:53 | XMS_ITS | Encounter Summary ---
Author Organization [facility] Address [facility] [place] [address] Care Team Providers Care School Psychology Specialist Name Role Phone Brooke Holman Primary Care Provider [phone] Emily Montoya RN Unavailable [phone] Cailin Thompson MD Primary Care Provider [phone] Encounter Details Date Type Department Care Team (Late st Contact Info) Description 06/20/2021 [employer] Message Enc [facility] Medical Group Family & Internal Medicine [facility] [id number] [place] [address] [place] [address] [place] [address] RE: Other Social History Tobacco [...] Sex Assigned at Female 07/20/2018 2:29 PM SYNTHETIC PLASTERER Legal Sex Female 9:40 PM CDT Gender Identity Female 07/20/2018 2:29 PM SYNTHETIC PLASTERER Sexual Orientation Straight 07/20/2018 2: 29 PM SYNTHETIC PLASTERER COVID-19 Exposure Response Date Recorded In the last month, have you been in contact with someone who was confirmed or suspected to have Coronavirus / COVID-19? No / Unsure 06/23/2021 8:11 PM SYNTHETIC PLASTERER documented as of this encounter Functional Status * RETIRED Are you deaf or do you have serious difficulty hearing Answer Date of Assessment Author Status No 06/30/2019 10:47 AM SYNTHETIC PLASTERER Acti ve * RETIRED Are you blind or do you have serious difficulty seeing, even when wearing glasses? Answer Date of Assessment Author Status No 06/30/2019 10:47 AM SYNTHETIC PLASTERER Acti ve * Do you have serious difficulty walking or climbing stairs? Answer Date of Assessment Author Status No 06/29/2019 4:31 AM SYNTHETIC PLASTERER Kimberly Vidales RN Active * Do you have difficulty dressing or bathing? Answer Date of Assessment Author Status No 06/30/2019 10:47 AM SYNTHETIC PLASTERER Renata Elias RN Active * Because of a physical, mental, or emotional condition, do you have difficulty doing errands alone such as visiting a doctor's office or shopping? Answer Date of Assessment Author Status No 06/30/2019 10:47 AM SYNTHETIC PLASTERER Renata Elias RN Active documented as of [...] Rule Out 06/24/2021 06/24/2021 06/25/2021 2:13 PM SYNTHETIC PLASTERER COVID-19 Rule Out 06/25/2021 06/25/2021 06/26/2021 10:53 AM SYNTHETIC PLASTERER documented as of this encounter Care Teams School Psychology Specialist Relationship Specialty [place] [address] [place] [address] PCP - General PHYSICIAN MILK DELIVERY DRIVER 07/04/20 07/01/21 Cailin Thompson MD [address] [facility] [address] [place] [address] PCP - General FAMILY PRACTICE 07/02/21 Emily Montoya, RN [address] [place] [address] Area Forester (Ambulatory) REGISTERED NURSE 06/25/21 07/02/21 documented as of this encounter
--- OUTSIDE RECORDS SUMMARY | 2024-11-05 22:53 | XMS_ITS | Encounter Summary ---
Author Organization [facility] Address [facility] [place] [address] Care Team Providers Care Dental Instructor Name Role Phone Emily Montoya RN Unavailable [phone] Cailin Thompson MD Primary Care Provider [phone] Encounter Details Date Type Department Care Team (Late st Contact Info) Description 07/02/2021 [employer] Message Enc [facility] Medical Group Family & Internal Medicine [facility] [id number] [place] [address] [place] [address] [place], [place] [id number] FOLLOW UP VISIT Social History Tobacco Use [...] Sex Assigned at Female 07/20/2018 2:29 PM CLINICAL RN MANAGER Legal Sex Female 9:40 PM CDT Gender Identity Female 07/20/2018 2:29 PM CLINICAL RN MANAGER Sexual Orientation Straight 07/20/2018 2: 29 PM CLINICAL RN MANAGER COVID-19 Exposure Response Date Recorded In the last month, have you been in contact with someone who was confirmed or suspected to have Coronavirus / COVID-19? No / Unsure 06/23/2021 8:11 PM CLINICAL RN MANAGER documented as of this encounter Functional Status * RETIRED Are you deaf or do you have serious difficulty hearing Answer Date of Assessment Author Status No 06/24/2021 11:09 AM CLINICAL RN MANAGER Acti ve * RETIRED Are you blind or do you have serious difficulty seeing, even when wearing glasses? Answer Date of Assessment Author Status No 06/24/2021 11:09 AM CLINICAL RN MANAGER Acti ve * Do you have serious difficulty walking or climbing stairs? Answer Date of Assessment Author Status No 06/24/2021 11:09 AM CLINICAL RN MANAGER Cristina Mcpherson R N Active * Do you have difficulty dressing or bathing? Answer Date of Assessment Author Status Yes 06/24/2021 11:09 AM CLINICAL RN MANAGER Cristina Mcpherson R N Active * Because of a physical, mental, or emotional condition, do you have difficulty doing errands alone such as visiting a doctor's office or shopping? Answer Date of Assessment Author Status No 06/24/2021 11:09 AM CLINICAL RN MANAGER Cristina Mcpherson R N Active documented as [...] on filedocumented in this encounter Care Teams Dental Instructor Relationship Specialty Start Date End Date Cailin Thompson MD [address] [facility] [address] [place] [address] PCP - General FAMILY PRACTICE 07/02/21 Emily Montoya, RN [address] [place] [address] Edger Automatic (Ambulatory) REGISTERED NURSE 06/25/21 documented as of this encounter
--- OUTSIDE RECORDS SUMMARY | 2024-11-05 22:53 | XMS_ITS | Clinical Summary ---
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): Added automatically from request for surgery [id number] Mass of left parotid gland 12/13/2020 Neoplasm of uncertain behavior of parotid gland 11/14/2020 Hypothermia 06/29/2019 Rectal bleeding 12/07/2018 Hypokalemia 07/27/2018 Hypomagnesemia 07/21/2018 Alcohol-induced chronic pancreatitis (HCC) 07/20 Psoriasis 07/20/2018 Hypertension 04/24/2018 Psoriasis, unspecified 04/23/2018 Knee pain, bilateral 10/21/2017 Alcoholism, chronic ([facility]) 10/07/2017 Congestive heart failure ([facility]) 10/07 Dementia 10/07/2017 Assessment & Plan (07/06/2019 10:24 AM DRESS DESIGNER): Only scored 10 on SLUMS. She became [...] Syringe IIV4) 06/30/2019(Deferred: Patient/family declined - Per Yuyd Drummond and Maite Isbell) Flucelvax 2 YRS+ [...] Sex Assigned at Female 07/20/2018 2:29 PM DRESS DESIGNER Legal Sex Female 9:40 PM CDT Gender Identity Female 07/20/2018 2:29 PM DRESS DESIGNER Sexual Orientation Straight 07/20/2018 2: 29 PM DRESS DESIGNER Last Filed Vital Signs Vital Sign Reading Time Taken Comments Blood Pressure 122/43 06/28/2021 8:32 AM DRESS DESIGNER Pulse 74 06/28/2021 8:32 AM DRESS DESIGNER Temperature 36.7 C (98.1 F) 06/28/2021 8:32 AM DRESS DESIGNER Respiratory Rate 18 06/28/2021 8:32 AM DRESS DESIGNER Oxygen Saturation 93% 06/28/2021 8:32 AM DRESS DESIGNER Inhaled Oxygen Concentration - - Weight 55.3 kg (121 lb 14.6 oz) 06/28/2021 5:00 AM DRESS DESIGNER Height 160 cm (5' 3 ) 06/24/2021 11:05 AM DRESS DESIGNER Body Mass Index 21.6 06/24/2021 11:05 AM DRESS DESIGNER Plan of Treatment Health Maintenance Due Date [...] to complete this topic Insurance MEDICARE MEDICAID [facility] Advance Directives * Full Code (Latest Code Status on File) Date Activated Date Inactivated Comments 06/24/2021 12:10 PM 06/28/2021 3:38 PM * Full Code Date Activated Date Inactivated Comments 06/29/2019 9:47 AM 06/30/2019 4:42 PM Care Teams Jewel Sorter Relationship Specialty Start Date End Date Cailin Thompson MD [address] [facility] [address] [place] [address] PCP - General FAMILY PRACTICE 07/02/21
--- OUTSIDE RECORDS SUMMARY | 2024-11-05 22:53 | XMS_ITS | Clinical Summary ---
Author Organization [facility] Address [address] [facility] [place] [address] Care Team Providers Care Statue Maker Name Role Phone Unavailable Primary Care Provider Unavailabl e Source Comments [facility],non-owned Affiliates and Associated Physician Practices is amultiple site organization consisting of ambulatory clinics and hospital sitesin [place], [place], [place] and [place]. This disclosure is being madepursuant to the Care Everywhere program and may not contain all information available regarding this patient. Last updated 18.[facility] Allergies Active Allergy Reactions Criticality Noted Date [...] this topic Medical Devices Implanted Type Area Payroll Secretary Device Identifier Shelf Expiration Date Model / Serial / Lot Medacta Bipolar Head - 44mm, Head 28mm Implanted:Qty: 1 on 02/15/2021 by Connor Jorge MD at [facility] Right: Hip Medacta 11/08/2024 [id number] / / [id number] Description:apart of total Medacta Stem - Size 2 Standard, Cementless Implanted:Qty: 1 on 02/15/2021 by Connor Jorge MD at [facility] Right: Hip Medacta 02/08/2025 [id number] / / [id number] Description:apart of total Medacta Femoral Head - M, 28mm, 0 Offset Implanted:Qty: 1 on 02/15/2021 by Connor Jorge MD at [facility] Right: Hip 10/07/2025 [id number] / / [id number] Description:apart of total Hip Replacement Bipolar Implanted:Qty: 1 on 02/15/2021 by Connor Jorge MD at [facility] Right: Hip [id number] / / Insurance Payer Benefit Plan / Group Subscriber ID Effective Dates Phone Address Type MEDICARE WPS MEDICARE PART B [id number] 02/07/2011-Pres ent [address] [address] [place] [address] Medicare MEDICARE WPS MEDICARE PART B [id number] 02/07/2011-Pres ent [address] [address] [place] [address] Medicare MEDICARE WPS MEDICARE PART B [id number] 02/07/2011-Pres ent [address] [address] [place] [address] Medicare MEDICARE WPS MEDICARE PART B [id number] 02/07/2011-Pres ent [address] [address] [place] [address] Medicare MEDICARE WPS MEDICARE PART B [id number] 02/07/2011-Pres ent [address] [address] [place] [address] Medicare MEDICAID - OUT OF [facility] MEDICAID - [place] PUBLIC AID [id number] Effective for all dates [address] [address] [place] [address] Medicaid MEDICARE WPS MEDICARE PART B [id number] 02/07/2011-Pres ent [address] [address] [place] [address] Medicare MEDICAID - OUT OF [facility] MEDICAID - [place] PUBLIC A[place] [id number] Effective for all dates [address] [address] [place] [address] Medicaid MEDICARE WPS MEDICARE PART B [id number] 02/07/2011-Pres ent [address] [address] [place] [address] Medicare MEDICAID - OUT OF STATE MEDICAID - [place] PUBLIC AID [id number] Effective for all dates [address] [address] [place] [address] Medicaid MEDICAID - OUT OF [facility] MEDICAID - [place] PUBLIC AID [id number] Effective for all dates [address] [address] [place] [address] Medicaid MEDICARE MEDICARE PART A AND B [id number] 02/07/2011-Pres ent [address] [place] [address] Medicare AAR AARP MEDICARE SUPPLEMENT [id number] 08/10/2020-Pres ent [address] [place] [address] Commercial Advance Directives * Full Code (Latest Code Status on File) Date Activated Date Inactivated Comments 02/14/2021 12:34 PM 02/23/2021 4:40 PM * Full Code Date Activated Date Inactivated Comments 02/13/2021 3:11 AM 02/14/2021 12:34 PM * Full Code Date Activated Date Inactivated Comments 02/12/2021 11:13 PM 02/13/2021 3:11 AM
--- OUTSIDE RECORDS SUMMARY | 2024-11-05 22:53 | XMS_ITS | Encounter Summary ---
Author Organization [facility] Address [facility] [place] [address] Care Team Providers Care Grease And Tallow Pumper Name Role Phone Brooke Holman Primary Care Provider [phone] Emily Montoya RN Unavailable [phone] Cailin Thompson MD Primary Care Provider [phone] Encounter Details Date Type Department Care Team (Late st Contact Info) Description 05/03/2021 [employer] Message Enc [facility] Medical Group Family & Internal Medicine [facility] [address] [place] [address] [place] [address] [place] [address] RE: Question Social History Tobacco [...] Sex Assigned at Female 07/20/2018 2:29 PM LEARNING CONSULTANT Legal Sex Female 9:40 PM CDT Gender Identity Female 07/20/2018 2:29 PM LEARNING CONSULTANT Sexual Orientation Straight 07/20/2018 2: 29 PM LEARNING CONSULTANT COVID-19 Exposure Response Date Recorded In the last month, have you been in contact with someone who was confirmed or suspected to have Coronavirus / COVID-19? No / Unsure 04/04/2021 7:54 AM CDT documented as of this encounter Functional Status * RETIRED Are you deaf or do you have serious difficulty hearing Answer Date of Assessment Author Status No 06/30/2019 10:47 AM LEARNING CONSULTANT Acti ve * RETIRED Are you blind or do you have serious difficulty seeing, even when wearing glasses? Answer Date of Assessment Author Status No 06/30/2019 10:47 AM LEARNING CONSULTANT Acti ve * Do you have serious difficulty walking or climbing stairs? Answer Date of Assessment Author Status No 06/29/2019 4:31 AM LEARNING CONSULTANT Kimberly Vidalse RN Active * Do you have difficulty dressing or bathing? Answer Date of Assessment Author Status No 06/30/2019 10:47 AM LEARNING CONSULTANT Renata Elias RN Active * Because of a physical, mental, or emotional condition, do you have difficulty doing errands alone such as visiting a doctor's office or shopping? Answer Date of Assessment Author Status No 06/30/2019 10:47 AM LEARNING CONSULTANT Renata Elias RN Active documented as of [...] Rule Out 06/24/2021 06/24/2021 06/25/2021 2:13 PM LEARNING CONSULTANT COVID-19 Rule Out 06/25/2021 06/25/2021 06/26/2021 10:53 AM LEARNING CONSULTANT documented as of this encounter Care Teams Grease And Tallow Pumper Relationship Specialty [place] [address] [place] [address] PCP - General PHYSICIAN TANKROOM WORKER 07/04/20 07/01/21 Cailin Thompson MD [address] [facility] [address] [place] [address] PCP - General FAMILY PRACTICE 07/02/21 Emily Montoya, RN [address] [place] [address] Engineer Technician (Ambulatory) REGISTERED NURSE 06/25/21 07/02/21 documented as of this encounter
--- NOTE | 2024-11-05 23:30 | PC.NURSE ---
Patient arrived to the unit via bed. She is resting with her eyes closed. She does not appear to be in distress. Her RR are 24, even and unlabored on room air. She does have continuous Morphine infusing at 2mg/hr via a L wrist 18g which was placed in lock box and locked with the help of another RN on the unit. She is accompanied by her daughter Dora, who is her POA. Pts daughter has decided not to stay but she states that she lived 5 minutes away and asked that she be contacted via phone with any concerns. She states that she will return in the morning.
--- NOTE | 2024-11-06 | PC.NURSE ---
. 0 `; ,.l/m,Génesis [id number] `[id number][=~
[2024-11-06 00:22] VITALS: BP 76/42; PULSE 100; RESP 24; TEMP 36.4; O2SAT 62; BMI 24.9
[2024-11-06] MEDS: MORPHINE 50 MG/NS 100ML (*CRX) 50 MG/100 ML BAG IV CONT (07:30)
--- NOTE | 2024-11-06 07:43 | PC.NURSE ---
pt found with morphine infusing at 2mg/hr 4ml/hr with 39.9ml intake at 0730 11/06/24. The bag appeared in eMAR unscanned upon initiation.
[2024-11-06 11:47] VITALS: BP 63/46; PULSE 82; RESP 12; TEMP 36.1; O2SAT 58
--- NOTE | 2024-11-06 16:47 | P.HP_ITS ---
H&P: HPI History of Present Illness Date/Time: 11/06/24 16:47 Chief Complaint: Uncontrolled dyspnea Narrative: 84 y/o NH resident who is Ox1 at baseline experienced a syncopal episode at the facility 11/05. This was followed by emesis and diarrhea. Due to altered mental status and hypoxia she was transported via EMS to [place] [facility]. There she was hypoxemic with sat of 89% and that normalized with oxygen 2 LPM by NC. Nasal MRSA was positive while viral PCR's were negative for COVID, Flu, & RSV. CXR Venous PC02 was 83.3. CTA of chest, abd, pelvis was unremarkable. Due to continued dyspnea requiring IV morphine for control, her POA opted for comfort care on the inpatient hospice service. Review of Systems Review of Systems: ROS unobtainable: Yes unobtainable due to medical condition PMFSH Past Medical History Medical History GERD (gastroesophageal reflux disease) Subarachnoid hemorrhage Vitamin B12 deficiency Gout Combined systolic and diastolic congestive heart failure Major depression Hypertension Hyperlipidemia Coronary artery disease Dementia With behavioral disorder Surgical History Surgical History S/P exploratory laparotomy 03/10/2022 with lysis of adhesions Dr. Cardona History of hysterectomy History of hip replacement Family History Family History Other Unknown family medical history Social History Social History Social History: She lives in [facility] in [place]. She is and she is retired. Her daughter Dora May is listed as her contact. Code status: DNR/DNI Smoking status: Former smoker Tobacco type: cigarettes Alcohol intake: current Drinks per week: 1 Substance use: never Lack of Transportation: No Lack of Food: Never True Current Housing: I Have Housing Concerned About Future Housing: No Difficulty Paying Gas/Electric Bills: YES Difficulty Paying for Meds: No Currently Unemployed: No Education: High School Diploma/GED Difficulty w/ Childcare or Family Care: No Spiritual care concerns: No Meds Home Medications and Allergies Home Medications ?Medication ?Instructions ?Recorded ?Confirmed ?Type Florastor 250 mg BYSDUTH BID 03/10/22 11/06/24 History Miralax 17 g BYMOUTH DAILY PRN Constipation 03/10/22 11/06/24 History atorvastatin 40 mg tablet 40 mg PO DAILY 03/10/22 11/06/24 History carvedilol 3.125 mg tablet 3.125 mg PO DAILY 03/10/22 11/06/24 History clopidogrel 75 mg tablet 75 mg PO DAILY 03/10/22 11/06/24 History colestipol 1 gram tablet 1 g PO QID 03/10/22 11/06/24 History divalproex 250 mg tablet,delayed 500 mg PO BID 03/10/22 11/06/24 History release (Depakote) donepezil 10 mg tablet 10 mg PO HS 03/10/22 11/06/24 History potassium chloride 20 mEq 20 meq PO BID 03/10/22 11/06/24 History tablet,extended release(part/cryst) prednisone 10 mg tablet 10 mg PO DAILY 03/10/22 11/06/24 History acetaminophen 500 mg tablet 500 mg PO Q6H PRN pain 10/24/22 11/06/24 History bisacodyl 10 mg rectal suppository 10 mg RECTAL HS PRN Constipation 10/24/22 11/06/24 History clotrimazole 1 % topical cream 1 applic topical BID 10/24/22 11/06/24 History colchicine 0.6 mg tablet 0.6 mg PO DAILY 10/24/22 11/06/24 History diclofenac sodium 1 % topical gel 1 ea topical DAILY 10/24/22 11/06/24 History (Voltaren Arthritis Pain) hydroxyzine HCl 25 mg tablet 25 mg PO TID 10/24/22 11/06/24 History ketoconazole 2 % topical cream 1 applic topical BID 10/24/22 05/18/24 History loteprednol etabonate 0.5 % eye 1 drp RIGHT EYE BID PRN Dry Eye(S) 10/24/22 05/18/24 History drops,suspension (Lotemax) megestrol 625 mg/5 mL (125 mg/mL) 5 ml PO DAILY 10/24/22 05/18/24 History oral suspension pantoprazole 40 mg tablet,delayed 40 mg PO QAM #30 tabs 10/26/22 11/06/24 Rx release cyanocobalamin (vitamin B-12) 500 mcg PO DAILY 11/06/24 11/06/24 History 1,000 mcg capsule Allergies Allergy/AdvReac Type Severity Reaction Status Date / Time Penicillins Allergy Unknown Verified 03/21/22 09:28 Sulfa (Sulfonamide Allergy Unknown Verified 03/21/22 09:28 Antibiotics) Vital Signs Vital Signs - 24 hr 11/06/24 00:22 11/06/24 01:27 11/06/24 11:47 Temperature 97.5 F L 97.0 F L Pulse Rate 100 82 Respiratory Rate 24 H 12 Blood Pressure 76/42 L 63/46 L Pulse Oximetry 62 L 58 L Oxygen Delivery Room Air Exam Narrative: prior to my exam Assessment and Plan Assessment and plan (1) Hospice care: Code(s): Z51.5 - Encounter for palliative care Status: Acute Assessment and Plan: * Meets inpatient hospice criteria due to requiring continuous IV morphine for control of dyspnea. * PRN palliative regimen ordered. (2) Dementia: Qualifiers: Dementia type: unspecified type Code(s): F03.90 - Unspecified dementia, unspecified severity, without behavioral disturbance, psychotic disturbance, mood disturbance, and anxiety Status: Acute (3) Acute respiratory failure with hypoxia and hypercapnia: Code(s): J96.01 - Acute respiratory failure with hypoxia; J96.02 - Acute respiratory failure with hypercapnia Status: Acute
[2024-11-06 21:00] VITALS: BP 71/32; PULSE 67; RESP 14; TEMP 36.1; O2SAT 75
--- NOTE | 2024-11-07 13:46 | PM.DDS ---
Discharge Summary Date and Time Date of : 11/06/24 Time of : 22:50 Provider Pronounced By: 2 RNs Name of First RN That Pronounced: Francisco Larios Name of Second RN That Pronounced: Sarita Grant RN Probable Cause of Probable Cause of : acute hypoxemic respiratory failure likely due to aspiration due to dementia Summary Hospital Course: Admitted to inpatient hospice service for control of dyspnea. Palliative regimen was initiated. Mrs. Guteirrez peacefully. Additional Data Confirmation of as documented by pronouncing clinician: Pupillary Reflex, Palpable Pulses, Response to Stimuli, Heart Tones and Breath Sounds Name of Provider Notified: Dr. Nahun Zurita Time Provider Notified: 23:06 Provider Requests Autopsy: No Family Requests Autopsy: No Director Of Collections And Archives Notified: Yes Date [facility] Notified of : 11/06/24 Time [facility] Notified of : 23:14
== END 2024-11-06 02:50 | disposition expired | DRG 951 ==
PROVIDERS: Admitting Provider Internal Medicine; PCP Family Medicine; Visit Provider Internal Medicine
DX: Z51.5 Encounter for palliative care (principal); J96.01 Acute respiratory failure with hypoxia; J96.02 Acute respiratory failure with hypercapnia; J69.8 Pneumonitis due to inhalation of other solids and liquids; I50.42 Chronic combined systolic (congestive) and diastolic (congestive) heart failure; F03.90 Unspecified dementia, unspecified severity, without behavioral disturbance, psychotic disturbance, mood disturbance, and anxiety; E78.5 Hyperlipidemia, unspecified; I11.0 Hypertensive heart disease with heart failure; I25.10 Atherosclerotic heart disease of native coronary artery without angina pectoris; K21.9 Gastro-esophageal reflux disease without esophagitis; Z66 Do not resuscitate; Z87.891 Personal history of nicotine dependence; Z88.0 Allergy status to penicillin
CPT/HCPCS: A9270; J2270